=== PATIENT | male | born 1965 | race Caucasian/White ===

== ENCOUNTER 2016-12-25 10:58 | Inpatient (IN) | payer SELFPAY ==
[~2016-12-25] VITALS: Ht 180.3 cm; Wt 100.0 kg
--- NOTE | ~2016-12-25 | HEMODYNAMI ---
PATIENT:RAUL CALDERON MEDICAL RECORD: [id number] : 67 LOCATION:[address] ADMISSION DATE: 12/25/16 Generatedon:01/01/201711:32 Patient name: RAUL CALDERON Patient #: [id number] SSN: : 1965 Date of study: 01/01/2017 Page: Of Hemodynamic Procedure Report Patient Data Patient Demographics Procedure consent was obtained First Name: RAUL Gender: Male Last Name: KVNG : 1965 [facility] Initial: C Age: 51 year(s) Patient #: [id number] Race: Unknown Additional ID: [id number] Contact details [address]: [address] [place] [address] State: [place] City: [place] Zip code: [address] Past Medical History Allergies: No known allergies Admission Admission Data Admission Date: 12/25/2016 Admission Time: 16:45 Room #: 2131 Weight (lbs.): 220 Weight (kg.): 99.79 Procedure Procedure Types Cath Procedure Peripheral Cath Diagnostic Procedure Cath Peripheral Liver TIPSS Procedure Description Procedure Date Procedure Date: 01/01/2017 Procedure Start Time: 10:16 Procedure Staff Name Function Manuel Pitts MD Performing Physician Mariusz Bhakta RT Scrub Gina Tracey RN Nurse Jewell Richardson RN Nurse Karen Aleman RT Fire Safety Director Karen Aleman RT Monitor Gagandeep Benjamin MD Additional personnel Procedure Data Cath Procedure Fluoroscopy Diagnostic fluoroscopy Total fluoroscopy Time: 9.8 time: 9.8 min min Diagnostic fluoroscopy Total fluoroscopy dose: dose: 1089 mGy 1089 mGy Contrast Material Contrast Material Type Amount (ml) Isovue 300 175 Diagnostic catheters Device Type Used For End Catheter Placement Merit UHF Pigtail VESSEL SIZING 5Fr 65CM catheter Procedure Medications Medication Administration Route Dosage unlisted medication 50 Hemodynamics Rest Heart Rate: 123 (bpm) Pressure Samples Time Site Value (mmHg) Purpose Heart Use Rate(bpm) 10:53 Portal (25) Snapshot 97 11:12 Portal 32/28(30) Snapshot 106 11:13 RA 14/13(13) Snapshot 99 11:22 Portal 32/31(30) Snapshot 101 Snapshots Pre Cath Intra NCS Post Cath Vital Signs Time Heart Resp NIBP Rhythm Pain Sedation Rate (ipm) (mmHg) Status Level (bpm) 9:50:29 131 17 No Cuff NSR 0 (11) , 10(A) No pain 9:54:28 106 No Cuff NSR 0 (11) , 10(A) No pain 9:58:28 103 3 No Cuff NSR 0 (11) , 10(A) No pain 10:02:28 93 11 No Cuff NSR 0 (11) , 10(A) No pain 10:06:27 107 32 No Cuff NSR 0 (11) , 10(A) No pain 10:10:27 90 28 No Cuff NSR 0 (11) , 10(A) No pain 10:14:27 83 28 No Cuff NSR 0 (11) , 10(A) No pain 10:18:26 86 23 No Cuff NSR 0 (11) , 10(A) No pain 10:22:26 87 27 No Cuff NSR 0 (11) , 10(A) No pain 10:26:26 92 26 No Cuff NSR 0 (11) , 10(A) No pain 10:30:25 82 26 No Cuff NSR 0 (11) , 10(A) No pain 10:34:25 90 27 No Cuff NSR 0 (11) , 10(A) No pain 10:38:24 85 26 No Cuff NSR 0 (11) , 10(A) No pain 10:42:24 96 34 No Cuff NSR 0 (11) , 10(A) No pain 10:46:24 117 22 No Cuff NSR 0 (11) , 10(A) No pain 10:50:23 102 31 No Cuff NSR 0 (11) , 10(A) No pain 10:54:23 92 31 No Cuff NSR 0 (11) , 10(A) No pain 10:58:23 95 29 No Cuff NSR 0 (11) , 10(A) No pain 11:02:22 101 16 No Cuff NSR 0 (11) , 10(A) No pain 11:06:22 95 30 No Cuff NSR 0 (11) , 10(A) No pain 11:10:22 101 28 No Cuff NSR 0 (11) , 10(A) No pain 11:14:21 106 29 No Cuff NSR 0 (11) , 10(A) No pain 11:18:21 97 29 No Cuff NSR 0 (11) , 10(A) No pain 11:22:21 130 33 No Cuff NSR 0 (11) , 10(A) No pain 11:26:20 108 27 No Cuff NSR 0 (11) , 10(A) No pain 11:30:20 110 23 No Cuff NSR 0 (11) , 10(A) No pain Medications Time Medication Route Dose Verified Delivered Reason Notes Effectiven ess by by 10:19:44 Albumin IVPB 50 GM Gina Gina Per King JAYSON Tracey RN physician Procedure Log Time Note 9:26:13 Patient Weight : 220 kg 9:48:46 Time tracking: Regular hours 9:49:19 Plan of Care:Hemodynamics will remain stable., Cardiac rhythm will remain stable., Comfort level will be maintained., Respiratory function will remain adequate., Patient/ family verbilizes understanding of procedure., Procedure tolerated without complication., Recovers from procedure without complications.. 9:49:28 Patient received from Outpatients to IR Alert and oriented. Tansferred to table in Supine position. 9:49:32 Warm blankets applied, and carolyn hugger turned on for patient comfort. 9:49:34 Correct patient and procedure confirmed by team. 9:49:35 Signed procedure consent form obtained from patient. 9:49:37 ECG and BP/O2 sat monitors applied to patient. 9:49:40 Vital chart was started 9:49:41 Baseline sample Acquired. 9:49:43 Full Disclosure recording started 9:49:44 - 9:50:12 H&P Date Dictated: 01/01/2017 Within 30 days and on chart.. 9:50:16 Family in waiting room. 9:50:19 Patient NPO since Midnight. 9:50:41 Patient allergic to No known allergies 9:50:46 Is the patient allergic to Iodine/contrast media? No. 9:51:16 Patient diabetic? No. 9:51:18 - 9:51:23 ----Pre-sedation anethsthesia assessment.---- 9:51:27 Previous problem with sedation/anesthesia? No ? 9:52:05 see anesthesia notes of monitoring of patient during procedure 9:52:19 - 9:52:25 Use device set IR Diagnostic 9:52:27 Sterile Angiographic Pack opened to sterile field. 9:52:28 Bag Decanter opened to sterile field. 9:52:30 Acist Manifold opened to sterile field. 9:52:32 Acist Hand Control opened to sterile field. 9:52:34 Acist Syringe opened to sterile field. 9:55:23 A MB[employer] F Pigtail VESSEL SIZING 5Fr 65CM catheter was advanced over the wire and used for . 9:55:24 KIT LIVER ACCESS BIOPSY W/19GX6 opened to sterile field. 9:55:25 PERCUTANEOUS ENTRY 19GA needle opened to sterile field. 9:55:28 ReelDx[employer] Inc. DOC .035 guide wire opened to sterile field. 9:55:29 Cook SCHROEDER 260 guide wire opened to sterile field. 9:55:30 Terumo ANGLE 260cm glide wire opened to sterile field. 9:55:32 BasixTOUCH Inflation Syringe opened to sterile field. 9:55:33 KIT, TRANSJUGULAR LIVER ACCESS R opened to sterile field. 9:55:35 [id number] 8FR CATH DRAIN TRAY opened to sterile field. 9:55:36 TUBING, CONTRAST INJCTN HI PRES opened to sterile field. 9:56:22 IV patent on arrival in left hand with 0.9% NaCl at KVO. 9:56:32 Right neck area was prepped with chlora-prep and draped in sterile fashion 9:56:36 Alarms reviewed by Zi Chan 9:56:37 Sharps counted by scrub and verified by Branden 9:56:38 - 9:57:41 Physical assessment completed. ASA score P 3 - A patient with severe systemic disease as per Gagandeep Benjamin MD. 9:57:48 Sedation plan: General Anesthesia General Anesthesia 9:57:50 See anesthesia assessment for all vs, medications and oxygen administered. 9:57:53 - 10:08:02 Micropuncture VSI 4FR kit opened to sterile field. 10:08:39 Physician arrived 10:13:36 Final Timeout: patient, procedure, and site verified with staff and physician. All members of the team are in agreement. 10:14:39 Procedure started. 10:15:21 Lidocaine 1% local to abdomin. ultrasound guided paracentesis in progress. 10:16:14 Local anesthetic to right IJ vein with Lidocaine 1% by Manuel Pitts MD.INITIAL ACCESS ONLY 10:16:27 Venous access obtained using ultrasound guidance. 10:19:44 Albumin 50 GM IVPB was administered by Gina Tracey RN; Per physician; 10:36:06 Terumo 5FR Band Saw Operator Cake Cutting H1 100CM glide catheter opened to sterile field. 10:36:07 [employer] BOLARUTODER .035 145 glide wire opened to sterile field. 10:42:47 Cook ANASON 145cm guide wire opened to sterile field. 10:46:02 [place] Sci AMPLATZ Super stiff 260cm guide wire opened to sterile field . 10:53:06 Zero performed for pressure channel P1 10:58:51 Inflation number: 1 A Cordis Powerflex Pro 8.0 x 40 x 80cm balloon was prepped and advanced across the Undefined1, then inflated to 10 HEATH for 0:10 (min:sec). 11:06:26 VIATORR 10x6 stent was deployed across Undefined1 . 11:11:26 Zero performed for pressure channel P1 11:11:33 Zero performed for pressure channel P1 11:11:44 Zero performed for pressure channel P1 11:11:52 Zero performed for pressure channel P1 11:13:17 Zero performed for pressure channel P1 11:18:38 Inflation number: 2 A Cordis Powerflex Pro 9.0 x 40 x 80cm balloon was prepped and advanced across the Undefined1, then inflated to 10 HEATH for 0:16 (min:sec). 11:20:53 Zero performed for pressure channel P1 11:21:14 Zero performed for pressure channel P1 11:21:22 Zero performed for pressure channel P1 11:22:55 Procedure ended.(Physican Out) 11:23:19 Fluoroscopy time 09.80 minutes. 11:23:27 Fluoroscopy dose: 1089 mGy 11:23:27 Flurop Dose total: 1089 11:24:06 Contrast amount:Isovue 300 175ml. 11:24:08 Sharps counted by scrub and verified by R.N. 11:24:12 Procedure and supply charges have been captured, reviewed, submitted an d are correct. 11:32:22 End room use (Document Last) 11:32:50 Vital chart was stopped Intervention Summary Intervention Notes Time ActionType Lesion and Equipment Action# Pressure Duration Attributes Used 10:58:51 Inflate Undefined1 Cordis 1 10 00:10 balloon Powerflex Pro 8.0 x 40 x 80cm balloon 11:06:26 Deploy self Undefined1 VIATORR 1 expanding 10x6 stent stent 11:18:38 Inflate Undefined1 Cordis 2 10 00:16 balloon Powerflex Pro 9.0 x 40 x 80cm balloon Device Usage Item Name Manufacture Quantity Catalog Hospital Part Current Mini mal Lot# / Number Charge Number Stock Stock Serial# Code Sterile Cardinal 1 [id number] 104246 5 Angiographic Health Pack Bag Decanter Microtek 1 2001S 110074 80222 131240 5 Medical Inc. Acist Manifold Acist 1 62558 634778 648784 829811 5 CO3 Ventures Systems Inc Acist Hand Acist 1 75058 249481 036621 995567 5 Control Medical Systems Inc Acist Syringe Acist 1 92153 848776 162832 415867 20 Medical Systems Inc Merit F Merit 1 [id number] 778497 285351 5 Pigtail VESSEL Medical SIZING 5Fr 65CM catheter KIT LIVER [facility] 1 L97481 535471 362180 5 ACCESS BIOPSY W/19GX6 PERCUTANEOUS [facility] 1 R26158 121051 136833 5 [id number] ENTRY 19GA needle Cook DOC .035 [facility] 1 I76891 889233 040145 5 5446561 guide wire Cook SCHROEDER 260 [facility] 1 S87641 742704 722050 5 9191765 guide wire Terumo ANGLE Terumo 1 PF3585 423163 072325 506247 5 260cm glide wire BasixTOUCH Merit 1 EW6050 194755 219748 988401 5 Inflation Medical Syringe KIT, [facility] 1 M09179 518716 570721 5 0624412 TRANSJUGULAR LIVER ACCESS R QQIW-U-WHARVNIZ CareFusion 1 [id number] 661854 780963 5 8FR CATH DRAIN TRAY TUBING, Merit 1 [id number] 910953 148208 791900 5 CONTRAST INJCTN Medical HI PRES Terumo 5FR [place] 1 CG513 070037 405361 5 Band Saw Operator Cake Cutting H1 Scientific 100CM glide catheter Stuart RO[facility]RUNNER [facility] 1 O72356 250005 933517 5 9772701 .035 145 glide wire Cook BENTSON [facility] 1 O16882 793336 479118 5 5934245 145cm guide wire [place] Sci [place] 1 [id number] 320516 15489 712554 5 AMPLATZ Super Scientific stiff 260cm guide wire Cordis Cardinal 1 [id number] 009265 392354 460338 5 Powerflex Pro Health 8.0 x 40 x 80cm balloon VIATORR 10x6 [facility] [place] 1 [id number] 636975 707384 809303 5 [id number] stent Micropuncture VSI VASCULAR 1 7266V 398370 111154 5 VSI 4FR kit SOLUTIONS Cordis Cardinal 1 [id number] 821983 082845 330014 5 Powerflex Pro Health 9.0 x 40 x 80cm balloon Signature Audit [place] Stage Time Signature Unsigned Intra-Procedure 01/01/2017 Karen Aleman 11:32:47 AM RT(R) Signatures Monitor : Karen Aleman RT Signature : Date : Time : [place] [id number] [place] [address]
[2016-12-25 11:53] LABS: ALBUMIN 2.2 g/dL (3.4-5.0); ALKALINE PHOSPHATASE 191 U/L (46-116); ALT (SGPT) 53 U/L (10-68); CALCIUM 8.2 mg/dL (8.5-10.1); CHLORIDE - SERUM 88 mmol/L (98-107); CREATININE - SERUM 0.6 mg/dL (0.6-1.3); GLUCOSE 106 mg/dL (74-106); POTASSIUM - SERUM 3.7 mmol/L (3.5-5.1); PROTEIN - SERUM 6.9 g/dL (6.4-8.2); UREA NITROGEN 4 mg/dL (7-18); eGFR NON AFRICAN AMERICAN > 90 mL/min (90-120)
[2016-12-25 11:54] LABS: CALC OSMOLALITY 240 mosm/kg (275-300); SODIUM 121 mmol/L (136-145)
[2016-12-25 11:58] LABS: BASOPHILS 0.4 % (0.0-2.0); EOSINOPHILS 0.4 % (0-7); HEMATOCRIT 42.6 % (42.0-54.0); HEMOGLOBIN 15.1 g/dL (13.5-17.5); IMMATURE GRANULOCYTES 0.4 % (0-5); LYMPHOCYTES 10.9 % (15-50); MCH 34.7 pg (26.0-34.0); MCHC 35.4 g/dL (31.0-37.0); MCV 97.9 fL (80.0-100.0); MEAN PLATELET VOLUME 11.3 fL (7.4-10.4); MONOCYTES 10.4 % (2-11); NEUTROPHILS 77.5 % (40-80); PLATELET COUNT 105 10x3/uL (130-400); RBC 4.35 10x6/uL (4.20-6.10); RDW 13.3 % (11.5-14.5); WBC 13.7 10x3/uL (4.8-10.8)
[2016-12-25 12:22] LABS: APTT 32.3 SECONDS (22.8-39.4); INR 1.19 (0.85-1.17)
--- NOTE | 2016-12-25 18:11 | NUR ---
received pt to room 2130 VIA W/C AAOX4 RESP SLIGHTLY SOB ADBOMEN NOTED WITH DISTENTION SCLERA OF EYES JAUNDICED IV OF BANANA BAG INFUSING TO LT HANE AT 125ML/HR SITE FREE OF REDNESS OR EDEMA DRSG INTACT PT C/O ABDOMINAL PAIN 6/10 ACHING WILL CONTINUE TO MONITOR
[2016-12-25 20:00] VITALS: BP 121/83
--- NOTE | 2016-12-25 20:05 | NUR ---
ALERT/ORIENTED. LEFT HAND WITH BANANA BAG AT 125ML/HR. ABDOMEN VERY DISTENDED/TIGHT WITH HYPO BOWEL SOUNDS. C/O UPPER ABDOMEN PAIN. STATES HE HAD SAME PAIN WHEN IN ER. SEE ASSESSMENT.
--- NOTE | 2016-12-25 20:23 | NUR ---
PAGE TO CARMEN HENRIQUEZ APN TO SEE IF PT CAN HAVE PAIN MEDICATION.
--- NOTE | 2016-12-25 20:34 | NUR ---
RETURN CALL FROM CARMEN. REVIEWED LABS AND GAVE ORDER FOR ULTRAM 25MG EVERY 6 HOURS NEEDED FOR ABDOMINAL PAIN.
[2016-12-26] VITALS (7 sets, daily range): BP systolic 106–157; BP diastolic 61–85; BMI 27.9
[2016-12-26 07:27] LABS: HEPATITIS C ANTIBODY <0.1 (0.0-0.9)
--- NOTE | 2016-12-26 10:14 | NUR ---
RATIONALE FOR SCD'S EXPLAINED. REFUSED SCD'S.
[2016-12-26 12:01] LABS: BASOPHILS 0.4 % (0.0-2.0); EOSINOPHILS 0.4 % (0-7); HEMATOCRIT 40.2 % (42.0-54.0); HEMOGLOBIN 14.3 g/dL (13.5-17.5); IMMATURE GRANULOCYTES 0.3 % (0-5); LYMPHOCYTES 11.1 % (15-50); MCH 34.7 pg (26.0-34.0); MCHC 35.6 g/dL (31.0-37.0); MCV 97.6 fL (80.0-100.0); MEAN PLATELET VOLUME 10.7 fL (7.4-10.4); MONOCYTES 10.7 % (2-11); NEUTROPHILS 77.1 % (40-80); PLATELET COUNT 87 10x3/uL (130-400); RBC 4.12 10x6/uL (4.20-6.10); RDW 13.8 % (11.5-14.5); WBC 10.3 10x3/uL (4.8-10.8)
[2016-12-26 12:22] LABS: ALBUMIN 2.1 g/dL (3.4-5.0); ALKALINE PHOSPHATASE 185 U/L (46-116); ALT (SGPT) 49 U/L (10-68); BILIRUBIN - TOTAL 3.31 mg/dL (0.2-1.3); CALC OSMOLALITY 253 mosm/kg (275-300); CALCIUM 8.1 mg/dL (8.5-10.1); CARBON DIOXIDE 25.1 mmol/L (21.0-32.0); CHLORIDE - SERUM 93 mmol/L (98-107); CREATININE - SERUM 0.8 mg/dL (0.6-1.3); GLUCOSE 130 mg/dL (74-106); INR 1.22 (0.85-1.17); POTASSIUM - SERUM 3.4 mmol/L (3.5-5.1); PROTEIN - SERUM 6.6 g/dL (6.4-8.2); PROTIME 15.3 SECONDS (11.6-15.0); SODIUM 127 mmol/L (136-145); UREA NITROGEN 4 mg/dL (7-18); eGFR NON AFRICAN AMERICAN > 90 mL/min (90-120)
[2016-12-26 13:07] LABS: PLATELET ESTIMATE DECREASED
--- NOTE | 2016-12-26 13:47 | NUR ---
CONSENTS SIGNED FOR PARENCENTESIS. PT LEAVING FLOOR NOW.
[2016-12-26 14:05] LABS: APPEARANCE HAZY (CLEAR); BILIRUBIN 2+ (NEGATIVE); COLOR ORANGE (YELLOW); KETONE MODERATE mg/dL (NEGATIVE); LEUKOCYTE ESTERASE 2+ (NEGATIVE); SPECIFIC GRAVITY 1.015 (1.005-1.020)
[2016-12-26 14:10] LABS: EPITHELIAL CELLS 0-5 /hpf (0-5); RED CELLS - URINE OCC /hpf (0-5)
[2016-12-26 14:11] LABS: BACTERIA MODERATE /hpf (NONE SEEN); MUCUS <1+ /lpf (NONE SEEN)
[2016-12-26 15:50] LABS: PROTEIN - BODY FLUID 0.9 G/DL
[2016-12-26 17:40] LABS: LYMPH - BF 9 %; MACROPHAGES BF 48 %; MESOTHELIALS BF 19 %; NEUT - BF 24 %
[2016-12-27] VITALS: BP 116/76
[2016-12-27 04:00] VITALS: BP 98/58
[2016-12-27 06:56] LABS: BASOPHILS 0.4 % (0.0-2.0); EOSINOPHILS 1.1 % (0-7); HEMATOCRIT 39.8 % (42.0-54.0); HEMOGLOBIN 13.7 g/dL (13.5-17.5); IMMATURE GRANULOCYTES 0.4 % (0-5); LYMPHOCYTES 13.4 % (15-50); MCH 34.1 pg (26.0-34.0); MCHC 34.4 g/dL (31.0-37.0); MEAN PLATELET VOLUME 11.3 fL (7.4-10.4); MONOCYTES 13.8 % (2-11); NEUTROPHILS 70.9 % (40-80); PLATELET COUNT 82 10x3/uL (130-400); RBC 4.02 10x6/uL (4.20-6.10); RDW 13.9 % (11.5-14.5); WBC 8.1 10x3/uL (4.8-10.8)
[2016-12-27 07:16] LABS: ALBUMIN 1.9 g/dL (3.4-5.0); ALKALINE PHOSPHATASE 171 U/L (46-116); ALT (SGPT) 51 U/L (10-68); CALC OSMOLALITY 254 mosm/kg (275-300); CALCIUM 7.9 mg/dL (8.5-10.1); CARBON DIOXIDE 27.4 mmol/L (21.0-32.0); CHLORIDE - SERUM 94 mmol/L (98-107); CREATININE - SERUM 0.6 mg/dL (0.6-1.3); GLUCOSE 115 mg/dL (74-106); POTASSIUM - SERUM 3.3 mmol/L (3.5-5.1); PROTEIN - SERUM 5.7 g/dL (6.4-8.2); SODIUM 128 mmol/L (136-145); UREA NITROGEN 5 mg/dL (7-18); eGFR NON AFRICAN AMERICAN > 90 mL/min (90-120)
--- NOTE | 2016-12-27 07:40 | NUR ---
PATIENT IS AWAKE AND ALERT, RESTING IN HIS BED WITH HEAD ELEVATED 30 DEGREES. WATCHING TV. IV ACCESS TO THE LEFT HAND REINFORCED. NO REDNESS OR SWELLING NOTED. HIS LEFT UPPER LOBE HAS SOME HIGH PITCHED EXPIRATORY WHEEZES. OTHER LUNG SOUNDS ARE CLEAR. HR RRR. ASCITIES AND ACTIVE BOWEL SOUNDS NOTED.
--- NOTE | 2016-12-27 08:17 | NUR ---
THOMPSON ON HIS CALL LIGHT. HE STATES TAHT HE PRESSED THE WRONG BUTTON BY MISTAKE. DENIES NEEDS.
--- NOTE | 2016-12-27 10:10 | NUR ---
PATIENT UP AROUND ROOM AD EBONI. TOOK MEDICATIONS FOR STUDENT NURSE AND HIS INSTRUCTER. NO NEEDS NOTED.
--- NOTE | 2016-12-27 11:27 | NUR ---
PATIENT IS RESTING IN HIS BED, NO NEEDS NOTED.
[2016-12-27 12:10] VITALS: Ht 180.3 cm; Wt 100.0 kg
[2016-12-27 12:29] VITALS: BP 113/77
[2016-12-27 16:40] VITALS: BP 107/77
--- NOTE | 2016-12-27 16:50 | NUR ---
PATIENT EDUCATED ABOUT THE EFFECTS OF LASIX AND REASONS FOR THE POTASSIUM SUPPLEMENT. 3+ EDEMA NOTED TO HIS BLE. HE STATES THAT THIS IS UNUSUAL FOR HIM. HE ALSO STATES THAT THE LACTULOSE HE TOOK AT LUNCH HAD NO EFFECT ON HIS BOWELS.
--- NOTE | 2016-12-27 16:55 | NUR ---
* Is the patient Alert and Oriented? Yes 0 * How many steps to enter\exit or inside your home? 0 0 * PCP None 0 * Pharmacy [facility] [address] * Preadmission Environment Home Alone 0 * ADLs Independent 0 * Additional services required to return to the preadmission environment? Yes 0 * Can the patient safely return to the preadmission environment? Yes 0 * Has this patient been hospitalized within the prior 30 days at any hospital? Yes 12/27/2016 17:00 DCP: Discharge Planning Patient Name: RAUL CALDERON Admission Status: ER Accout number: [id number] Admission Date: 12-25-2016 : 1965 Admission Diagnosis: Attending: LACEY Current LOS: 2 Anticipated DC Date: 12-28-2016 Planned Disposition: Home Primary Insurance: UNINSURED DISCOUNT PLAN Discharge Planning Comments: CM met with patient to assess dc plans/needs. Patient states he lives alone & is independent with all ADL's & IADL's. He does not use any assistive devices for mobility. At dc, he will return home. No needs identified or verbalized at this time. CM will follow. Steel Shot Header Operator: Mindy Garcia
--- NOTE | 2016-12-27 17:50 | NUR ---
PATIETN UP AD EBONI TO THE RESTROOM.
--- NOTE | 2016-12-27 19:45 | NUR ---
ASSESSMENT COMPLETED, NO ACUTE DISTRESS NOTED, FALL PRECATIONS IN PLACE, FAMILY IN ROOM, CL IN REACH, WILL MONITOR
[2016-12-27 20:00] VITALS: BP 108/81
--- NOTE | 2016-12-27 20:00 | NUR ---
MEDS GIVEN PER MAR, ENRIKE WELL, FAMILY IN ROOM, CL IN REACH
--- NOTE | 2016-12-27 22:13 | NUR ---
PRN MEDS GIVEN PER REQUEST, ENRIKE WELL, CL IN REACH
--- NOTE | 2016-12-27 23:05 | NUR ---
LYING BED AWAKE, DENIES NEEDS, CL IN REACH
--- NOTE | 2016-12-28 01:09 | NUR ---
UP TO RESTROOM WITH NO DISTRESS NOTED, DENIES NEEDS, CL IN REACH
--- NOTE | 2016-12-28 03:49 | NUR ---
NO CHANGES SINCE LAST ROUND, SAFETY MEASURES IN PLACE, CL IN REACH
[2016-12-28 04:00] VITALS: BP 112/80
[2016-12-28 05:44] LABS: INR 1.3 (0.85-1.17); PROTIME 16.1 SECONDS (11.6-15.0)
[2016-12-28 05:52] LABS: ALKALINE PHOSPHATASE 175 U/L (46-116); ALT (SGPT) 49 U/L (10-68); CALC OSMOLALITY 255 mosm/kg (275-300); CALCIUM 8.4 mg/dL (8.5-10.1); CARBON DIOXIDE 28.7 mmol/L (21.0-32.0); CHLORIDE - SERUM 94 mmol/L (98-107); CREATININE - SERUM 0.7 mg/dL (0.6-1.3); GLUCOSE 107 mg/dL (74-106); MAGNESIUM - SERUM 1.8 mg/dL (1.8-2.4); POTASSIUM - SERUM 3.1 mmol/L (3.5-5.1); PROTEIN - SERUM 6.3 g/dL (6.4-8.2); SODIUM 129 mmol/L (136-145); UREA NITROGEN 5 mg/dL (7-18); eGFR NON AFRICAN AMERICAN > 90 mL/min (90-120)
--- NOTE | 2016-12-28 07:25 | NUR ---
ASSESSMENT COMPLETED. AWAKE AND ALERT. IV TO LEFT HAND WITH NS AT 50. ABD DISTENDED. EDEMA TO LEGS. REFUSES Jazzy HOSE. WILL MONITOR
--- NOTE | 2016-12-28 08:08 | NUR ---
SITTING UP SOB EATING BRK. IV PATENT. CALL LIGHT IN REACH. WILL CONT. PLAN OF CARE.
[2016-12-28 09:36] VITALS: BP 124/83
[2016-12-28 12:11] VITALS: BP 112/74
--- NOTE | 2016-12-28 13:41 | NUR ---
UP TO BATHROOM. GAIT STEADY. . DNIES ANY NEEDS. CALL LIGHT IN REACH
[2016-12-28 18:08] VITALS: BP 119/84
--- NOTE | 2016-12-28 18:30 | NUR ---
AWAITING US OF ABD. NO NEEDS VOICED. OLEG LAGOS ON.WILL MONITOR
[2016-12-28 19:00] VITALS: BP 142/93
--- NOTE | 2016-12-28 19:25 | NUR ---
ASSESSEMENT DONE. ABD US COMPLETE. PT REQUEST SOMETHING TO EAT. A/O. NO DISTRESS NOTED. FAMILY IN ROOM. CALL LIGHT WITHIN REACH. WILL CONT. TO MONITOR.
[2016-12-29] VITALS: BP 113/89
--- NOTE | 2016-12-29 00:35 | NUR ---
PT SLEEPING. APPEARS COMFORTABLE. NO DISTRESS NOTED. CALL LIGHT WITH IN REACH. WILL CONT. TO MONITOR.
--- NOTE | 2016-12-29 03:47 | NUR ---
PT SLEEPING. EASILY AWAKEN. DENIES NEEDS. NO DISTRESS NOTED. CALL LIGHT WITH IN REACH. WILL CONT. TO MONITOR.
[2016-12-29 04:00] VITALS: BP 118/88
--- NOTE | 2016-12-29 05:10 | NUR ---
AGREE WITH GEOLOGICAL SAMPLE TESTER'S ASSESSMENT. CONTINUE PLAN OF CARE.
[2016-12-29 06:14] LABS: BASOPHILS 0.4 % (0.0-2.0); EOSINOPHILS 1.3 % (0-7); HEMOGLOBIN 14.7 g/dL (13.5-17.5); IMMATURE GRANULOCYTES 0.6 % (0-5); LYMPHOCYTES 16.6 % (15-50); MCH 34.8 pg (26.0-34.0); MCV 99.5 fL (80.0-100.0); MEAN PLATELET VOLUME 11.5 fL (7.4-10.4); MONOCYTES 16.8 % (2-11); NEUTROPHILS 64.3 % (40-80); PLATELET COUNT 93 10x3/uL (130-400); RBC 4.22 10x6/uL (4.20-6.10); RDW 14.4 % (11.5-14.5); WBC 9.1 10x3/uL (4.8-10.8)
--- NOTE | 2016-12-29 06:20 | NUR ---
PT SLEEPING. NO DISTRESS NOTED. APPEARS COMFORTABLE. CALL LIGHT WITH IN REACH. WILL CONT. TO MONITOR.
[2016-12-29 06:37] LABS: ALBUMIN 1.7 g/dL (3.4-5.0); ALKALINE PHOSPHATASE 156 U/L (46-116); ALT (SGPT) 43 U/L (10-68); CALC OSMOLALITY 253 mosm/kg (275-300); CALCIUM 8.2 mg/dL (8.5-10.1); CARBON DIOXIDE 25.7 mmol/L (21.0-32.0); CHLORIDE - SERUM 95 mmol/L (98-107); CREATININE - SERUM 0.6 mg/dL (0.6-1.3); GLUCOSE 99 mg/dL (74-106); PROTEIN - SERUM 5.8 g/dL (6.4-8.2); SODIUM 128 mmol/L (136-145); UREA NITROGEN 4 mg/dL (7-18); eGFR NON AFRICAN AMERICAN > 90 mL/min (90-120)
--- NOTE | 2016-12-29 07:10 | NUR ---
RECEIVED REPORT. ASSUMED CARE OF PATIENT. CALL LIGHT WITHIN REACH. DENIES NEEDS AT THIS TIME. ALERT/ORIENTED. RESP EVEN AND UNLAOBRED. NO DISTRESS.
[2016-12-29 08:26] VITALS: BP 131/83
[2016-12-29 12:30] VITALS: BP 113/77
--- NOTE | 2016-12-29 13:12 | NUR ---
POS GLUCOSE OF ANOTHER PATIENT UPLOADED TO THIS PATIENT CHART. THIS PATIENT DID NOT HAVE GLUCOSE OF 331! MD MADE AWARE AND MEDICATION ORDERS CHANGED APPROPRIATELY.
--- NOTE | 2016-12-29 13:24 | NUR ---
PATIENT MADE AWARE OF HIS FLUID RESTRICTION AND VERBALIZED HIS UNDERSTANDING. ALSO PROVIDED PATIENT WITH INFORMATION FOR PARACENTHESIS IN AM AND THAT HE WOULD BE NPO AFTER MIDNIGHT TONIGHT.
[2016-12-29 16:00] VITALS: BP 125/84
--- NOTE | 2016-12-29 18:15 | NUR ---
NEW ARM BAND PROVIDED OLD ARM BAND TOO TIGHT. CRUSHED ICE ALSO MADE AVAILABLE TO PATIENT AT THIS TIME. FAMILY AT BEDSIDE. CALL LIGHT WITHIN REACH. NO DISTRESS.
--- NOTE | 2016-12-29 19:50 | NUR ---
ASSESSMENT DONE. PT LAYING IN BED WATCHING TV. A/O. EDUCATED PT ON FLUID RESTRICTION. PT VERBALIZED UNDERSTANDING. PT REFUSING TO WEAR OLEG HOSE OR SCD'S AT THIS TIME. PT VERBALIZED UNDERSTANDING OF RISKS TO NOT WEARING OLEG HOSE OR SCD'S. PT DENIES NEEDS AT THIS TIME. CALL LIGHT WITH IN REACH. WILL CO NT. TO MONITOR. PT UNDERSTAND HE IS TO BE NPO AFTER MN FOR AM PROCEDURE.
[2016-12-29 20:19] VITALS: BP 120/84
--- NOTE | 2016-12-29 22:33 | NUR ---
PT UP AND AMBULATING TO RESTROOM. DENIES NEEDS.
[2016-12-30] VITALS (9 sets, daily range): BP systolic 104–128; BP diastolic 68–98
--- NOTE | 2016-12-30 02:28 | NUR ---
NURSE ENTERED ROOM AND FOUND PT STANDING AT HIS SINK WITH A CUP AND HE APPEARED TO BE DRINKING WATER FROM THE SINK. WHEN NURSE QUESTIONED PT ABOUT WHAT HE WAS DOING HE REPLIED " I'M NOT DRINKING IT. I AM JUST RINISING MY MOUTH OUT. I HAVE COTTON MOUTH SO BAD." NURSE REMINDED PT THAT HE IS TO BE NPO FOR PROCEDURE IN AM, AND ALSO HE IS ON A 1000 ML FLUID RESTRICTION. PT VERBALIZED UNDERSTANDING. PT DENIES NEEDS OR WANTS AT THIS TIME AND WENT BACK TO HIS BED TO LAY DOWN. WILL CONT. TO MONITOR.
--- NOTE | 2016-12-30 05:59 | NUR ---
PT LAYING IN BED WATCHING. TV. A/O. NO DISTRESS NOTED. DENIES NEEDS. CALL LIGHT WITH IN REACH.
[2016-12-30 06:06] LABS: INR 1.31 (0.85-1.17); PROTIME 16.2 SECONDS (11.6-15.0)
[2016-12-30 06:12] LABS: HEMOGLOBIN A1C 4.2 % (4.8-6.0)
--- NOTE | 2016-12-30 07:00 | NUR ---
RECEIVED REPORT. ASSUMED CARE OF PATIENT. RESTING WITH EYES CLOSED, EASILY AROUSED. RESP EVEN AND UNLABORED. IN REPORT, INFORMED PATIENT REFUSED TEDS, THIS AM ASKE PATIENT IF WE COULD REAPPLY OLEG AND HE STATED SURE, THAT THEY JUST PUT THEM BACK ON LAST NIGHT. ALSO RECEIVED REPORT THAT PATIENT WAS DRINKING FREE WATER FROM SINK. CALL LIGHT WITHIN REACH. DENIES NEEDS AT THIS TIME. NO DISTRESS.
--- NOTE | 2016-12-30 08:02 | NUR ---
CONSENTS SIGNED AND PLACED ON CHART FOR PARACENTESIS THIS AM.
--- NOTE | 2016-12-30 10:15 | NUR ---
PATIENT RETURN TO ROOM 213 FROM IR, PATIENT HAD PARACENTESIS. 5300 ML REMOVED. SITE TO RIGHT LOWER QUADRANT WITH DRESSING CLEAN, DRY AND INTACT. BEATRICE FROM IR REPORTS THAT SHE ATTEMPTED TO GIVE PATIENT VERSED AND FENTENYL AND WHILE ALBUMIN WAS INFUSING SHE NOTICED THAT HIS HAND AND ARM ARE SWELLING. SHE THINKS PATIENTS IV HAS BEEN INFILTRATED THE ENTIRE TIME. BEATRICE STATES THAT SHE IS BRINGING PATIENT BACK TO THE UNIT AND HE WILL NEED ANOTHER IV PLACED AND SHE IS BRINGING ALBUMIN BACK TO THE UNIT ALSO. SHE STATES SHE WOULD PUT IN A NEW IV AND ADMINISTER THE ALBUMIN BUT SHE HAS TO GO PLAY THE [place]AN[place] AT HER [facility]. THIS INSOLE BEVELER ELEVATED ARM ON PILLOW, DISCONTINUED THE IV SITE TO LEFT HAND. NO BLEEDING FROM SITE. CATHETER TIP INTACT. 2X2 GAUZE APPLIED AND SECURED WITH TAPE. WARM COMPRESSES APPLIED TO LEFT HAND AND ARM. PATIENT HAS NO COMPLAINTS AT THIS TIME. NO DISTRESS. PATIENT WITH FAMILY AT BEDSIDE.
--- NOTE | 2016-12-30 11:35 | NUR ---
THIS SAP ENTERPRISE PORTAL CONSULTANT ATTEMPTED X2 TO SITE IV TO RIGHT UPPER EXTREMITIY. THIS SAP ENTERPRISE PORTAL CONSULTANT UNSUCCESSFUL ON EACH ATTEMPT. NO BLEEDING FROM SITES. ABLE TO ACCESS VEIN, BUT VEIN BLOWS. HAVE NOTIFIED CHARGE NURSE AND AWAITING FOR ANOTHER ATTEMPT FROM TAILERCPAMANNY. CALL LIGHT WITHIN REACH. PATIENT STILL HAS NOT HAD HIS ALBUMIN ADMINISTERED DUE TO NO IV ACCESS.
--- NOTE | 2016-12-30 15:30 | NUR ---
RESTING WELL IN BED. NO DISTRESS. STILL AWAITING IV PLACEMENT AT THIS TIME.
--- NOTE | 2016-12-30 16:15 | NUR ---
22 GAUGE IV PLACED TO RIGHT UPPER ARM X 1 STICK BY JAYSON ROMERO. TAPED, DATED, AND SECURED. EASY FLUSH, GOOD BLOOD WITHDRAWL. TOLERATED IV PLACEMENT WELL. NO DISTRESS. FLUIDS INFUSING ORDERED AT THIS TIME.
--- NOTE | 2016-12-30 18:15 | NUR ---
RESTING IN BED WITH ATTENTION TOWARD TELEVISION. CALL LIGHT WITHIN REACH. NO DISTRESS.
--- NOTE | 2016-12-30 20:05 | NUR ---
RESUMED CARE OF PT, LYING IN BED RESPIRATIONS EVEN AND UNLABORED ON ROOM AIR. RIGHT UPPER ARM NS @ 50. PLAN OF CARE DISCUSSED. CALL LIGHT IN REACH. WILL CONTINUE TO MONITOR. SEE NURSE ASSESSMENT.
[2016-12-31] VITALS: BP 101/69
--- NOTE | 2016-12-31 03:14 | NUR ---
LYING IN BED WITH EYES CLOSED, RESPIRATIONS EVEN AND UNLABORED. CALL LIGHT IN REACH. WILL CONTINUE TO MONITOR.
[2016-12-31 04:00] VITALS: BP 139/83
[2016-12-31 05:19] LABS: BASOPHILS 0.3 % (0.0-2.0); EOSINOPHILS 1.2 % (0-7); HEMATOCRIT 42.1 % (42.0-54.0); HEMOGLOBIN 14.6 g/dL (13.5-17.5); IMMATURE GRANULOCYTES 0.6 % (0-5); MCH 34.4 pg (26.0-34.0); MCHC 34.7 g/dL (31.0-37.0); MCV 99.3 fL (80.0-100.0); MEAN PLATELET VOLUME 11.3 fL (7.4-10.4); MONOCYTES 15.8 % (2-11); NEUTROPHILS 66.1 % (40-80); PLATELET COUNT 94 10x3/uL (130-400); RBC 4.24 10x6/uL (4.20-6.10); RDW 14.5 % (11.5-14.5); WBC 9.8 10x3/uL (4.8-10.8)
[2016-12-31 06:31] LABS: ALBUMIN 1.9 g/dL (3.4-5.0); ALKALINE PHOSPHATASE 129 U/L (46-116); ALT (SGPT) 35 U/L (10-68); CALC OSMOLALITY 263 mosm/kg (275-300); CARBON DIOXIDE 27.1 mmol/L (21.0-32.0); CHLORIDE - SERUM 99 mmol/L (98-107); CREATININE - SERUM 0.7 mg/dL (0.6-1.3); GLUCOSE 101 mg/dL (74-106); POTASSIUM - SERUM 3.4 mmol/L (3.5-5.1); PROTEIN - SERUM 5.8 g/dL (6.4-8.2); SODIUM 133 mmol/L (136-145); UREA NITROGEN 7 mg/dL (7-18); eGFR NON AFRICAN AMERICAN > 90 mL/min (90-120)
--- NOTE | 2016-12-31 06:47 | NUR ---
NO CHANGES FROM PREVIOUS ASSESSMENT, AM MEDS PASSED. CALL LIGHT IN REACH.
[2016-12-31 07:41] VITALS: BP 108/75
--- NOTE | 2016-12-31 08:04 | NUR ---
ASSESSMENT COMPLETED. ALERT AND ORIENTED. RIGHT UPPER ARM IV WITH NS AT 50. EDMA TO LEGS. OLEG HOSE ON. PT IS UP AB EBONI. DENIES ANY NEEDS. CALL LIGHT IN REACH WITH SR UP. WILL MONITOR
--- NOTE | 2016-12-31 08:43 | NUR ---
RESTS WITH EYES CLOSED. IV PATENT. CALL LIGHT IN REACH. WILL CONT. PLAN OF CARE.
--- NOTE | 2016-12-31 12:02 | NUR ---
Patient Name: RAUL CALDERON Encounter No: [id number] : 1965 Primary Insurance: UNINSURED DISCOUNT PLAN Anticipated DC Date: 12-28-2016 Planned Disposition: Home DCP follow-up note: CM RECEIVED REQUEST TO MEET WITH PT AND HIS SISTER. CM MET WITH PT AND FAMILY REQESTED IN PT'S ROOM. PT REPORTS HE NEEDS TO FILE FOR MEDICAID AND DISABILITY, STATES THAT SOMEONE FROM THE HOSPITAL MET WITH HIM THIS WEEKEND BUT HE CANNOT REMEMBER ANYTHING ABOUT THE MEETING. CM EXPLAINED PROCESS FOR FILING DISABILITY AND REFERRED PT TO [employer]IAL [employer]URITY ADMINISTRATION. CM CALLED [facility], [phone], WHO WILL CALL PT SHORTLY AND IF NECESSARY, MEET WITH PT AGAIN REGARDING ASSISTANCE WITH FILING FOR MEDICAID APPLICATION. PT NOTIFIED. PT DENIED DISCHARGE NEEDS, PLANS TO DISCHARGE HOME, FAMILY TO TRANSPORT. KSENIA MOY, CASE MANAGEMENT
--- NOTE | 2016-12-31 13:10 | NUR ---
Nutrition Follow Up: Chart reviewed. Pt had paracentesis 12/30/16. Pt is eating 58% meal avg on a regular diet. Wt gain of 19# since admit - r/t fluid. +BM 12/31/16. Meds noted including Lasix, Lactulose, NS @ 50 ml/hr. Labs noted. Pt with fair po intake at this time. Rec continue current diet. RD following.
[2016-12-31 16:22] VITALS: BP 113/70
--- NOTE | 2016-12-31 18:09 | NUR ---
LYING QUIETLY. NO NEEDS VOICED. WILL GIORGI. NPO AFTER MN FOR PROCEDURE TOMORROW
[2016-12-31 21:17] VITALS: BP 113/66
--- NOTE | 2016-12-31 23:31 | NUR ---
1915)REC'D IN BED TALKING ON CELL PHONE. DENIES ANY DISCOMFORT ATPRESENT TIME. WILL CONTINUE TO MONITOR FOR ANY CHGES AND FOLLOW CURRENT PLAN OF CARE.REINFORCED NPO AT [place] FOR PROCEDURE IN AM VOICES UNDERSTANDING
[2017-01-01] VITALS (10 sets, daily range): BP systolic 104–121; BP diastolic 62–87
[2017-01-01 04:37] LABS: BASOPHILS 0.5 % (0.0-2.0); EOSINOPHILS 1.3 % (0-7); HEMATOCRIT 40.9 % (42.0-54.0); HEMOGLOBIN 14.1 g/dL (13.5-17.5); IMMATURE GRANULOCYTES 0.6 % (0-5); LYMPHOCYTES 18.3 % (15-50); MCHC 34.5 g/dL (31.0-37.0); MCV 98.6 fL (80.0-100.0); MEAN PLATELET VOLUME 11.4 fL (7.4-10.4); MONOCYTES 14.6 % (2-11); NEUTROPHILS 64.7 % (40-80); PLATELET COUNT 107 10x3/uL (130-400); RBC 4.15 10x6/uL (4.20-6.10); RDW 14.1 % (11.5-14.5); WBC 9.2 10x3/uL (4.8-10.8)
[2017-01-01 04:52] LABS: APTT 32.8 SECONDS (22.8-39.4); INR 1.33 (0.85-1.17); PROTIME 16.4 SECONDS (11.6-15.0)
[2017-01-01 05:15] LABS: ALBUMIN 1.8 g/dL (3.4-5.0); ALKALINE PHOSPHATASE 120 U/L (46-116); ALT (SGPT) 34 U/L (10-68); BILIRUBIN - TOTAL 2.92 mg/dL (0.2-1.3); CALC OSMOLALITY 262 mosm/kg (275-300); CALCIUM 7.8 mg/dL (8.5-10.1); CARBON DIOXIDE 28.8 mmol/L (21.0-32.0); CHLORIDE - SERUM 98 mmol/L (98-107); CREATININE - SERUM 0.8 mg/dL (0.6-1.3); GLUCOSE 102 mg/dL (74-106); POTASSIUM - SERUM 3.2 mmol/L (3.5-5.1); PROTEIN - SERUM 5.9 g/dL (6.4-8.2); SODIUM 132 mmol/L (136-145); UREA NITROGEN 6 mg/dL (7-18); eGFR NON AFRICAN AMERICAN > 90 mL/min (90-120)
--- NOTE | 2017-01-01 07:05 | NUR ---
RECEIVED REPORT. ASSUMED CARE OF PATIENT. CALL LIGHT WITHIN REACH. PATIENT SITTING TO SIDE OF BED. ALERT/ORIENTED. PATIENT WILL HAVE TIPS PROCEDURE THIS AM. NO DISTRESS. FLUIDS INFUSING ORDERED. STUDENT NURSE OBTAINING EKG AT THIS TIME.
--- NOTE | 2017-01-01 09:36 | NUR ---
REPORT TO THIS NURSE THAT PATIENT LEFT UNIT VIA BED ABOUT 0930 FOR SURGICAL PROCEDURE. NO DISTRESS UPON LEAVING UNIT.
--- NOTE | 2017-01-01 12:17 | NUR ---
RECEIVED REPORT FROM RECOVERY. PATIENT WILL BE BROUGHT BACK SOON. PATIENT IS ST, PULSE 119. RECEIVED 1MG DILAUDID FOR PAIN.
--- NOTE | 2017-01-01 12:28 | NUR ---
RECEIVED PATIENT TO ROOM 2131 AT THIS TIME. RESP EVEN AND UNLABORED. WITH EYES CLOSED BUT EASILY AROUSED. DRESSING TO RIGHT SIDE OF NECK AND RIGHT LOWER ABD, BOTH ARE CLEAN, DRY AND INTACT. POST OP VITALS CHARTED WITH PACU NURSE. NO DISTRESS. CALL LIGHT PLACED WITHIN REACH.
--- NOTE | 2017-01-01 13:30 | NUR ---
PATIENT RESTING WITH EYES CLOSED, EASILY AROUSED. FAMILY AT BEDSIDE. DRESSING TO RIGHT SIDE OF NECK NOTED TO HAVE SMALL BLOOD SPOT, OUTLINED WITH BLUE SHARPIE. DENIES PAIN. NO DISTRESS.
--- NOTE | 2017-01-01 17:00 | NUR ---
ASSISTED PATIENT TO SIDE OF BED FOR PM MEAL. PATIENT DENIES NEEDS. NO DISTRESS. O2 OFF AT THIS TIME, PATIENT SATS 96% ON ROOM AIR. PATIENT STATES HE FEELS FINE. DENIES DIZZYNESS.
--- NOTE | 2017-01-01 19:40 | NUR ---
PT LAYING IN BED WATCHING TV. A/O. DRESSING TO RIGHT NECK CLEAN DRY AND INTACT. NO S/S OF BLEEDING OR HEMATOMA. NO DISTRESS NOTED. PT DENIES PAIN OR SOB. FRIEND AT BEDSIDE. CALL LIGHT WITH IN REACH. WILL CONT. TO MONITOR.
[2017-01-02 06:33] LABS: BASOPHILS 0.4 % (0.0-2.0); EOSINOPHILS 0.7 % (0-7); HEMATOCRIT 40.1 % (42.0-54.0); IMMATURE GRANULOCYTES 0.4 % (0-5); LYMPHOCYTES 12.6 % (15-50); MCH 34.7 pg (26.0-34.0); MCHC 34.9 g/dL (31.0-37.0); MCV 99.5 fL (80.0-100.0); MEAN PLATELET VOLUME 11.2 fL (7.4-10.4); MONOCYTES 12.5 % (2-11); NEUTROPHILS 73.4 % (40-80); PLATELET COUNT 105 10x3/uL (130-400); RBC 4.03 10x6/uL (4.20-6.10); RDW 14.3 % (11.5-14.5); WBC 9.4 10x3/uL (4.8-10.8)
[2017-01-02 06:35] LABS: ALBUMIN 2.2 g/dL (3.4-5.0); ALKALINE PHOSPHATASE 143 U/L (46-116); ALT (SGPT) 37 U/L (10-68); BILIRUBIN - TOTAL 4.31 mg/dL (0.2-1.3); CALC OSMOLALITY 261 mosm/kg (275-300); CALCIUM 7.8 mg/dL (8.5-10.1); CARBON DIOXIDE 27.2 mmol/L (21.0-32.0); CHLORIDE - SERUM 99 mmol/L (98-107); CREATININE - SERUM 0.6 mg/dL (0.6-1.3); GLUCOSE 102 mg/dL (74-106); POTASSIUM - SERUM 3.6 mmol/L (3.5-5.1); PROTEIN - SERUM 5.8 g/dL (6.4-8.2); SODIUM 132 mmol/L (136-145); UREA NITROGEN 4 mg/dL (7-18); eGFR NON AFRICAN AMERICAN > 90 mL/min (90-120)
--- NOTE | 2017-01-02 07:50 | NUR ---
AM ROUNDING- RECEIVED REPORT FROM ELEVATED WORK PLATFORM OPERATOR NURSE MIAN. PT IS CURRENTLY LAYING IN BED ON BACK WITH EYES OPEN RESTING. ON MONITOR SHOWING ST, HR 102. ON EP, WILL CHECK AM LABS AND TX PER PROTOCOL. 22G IV SEEN TO RIGHT UPPER ARM WITH NS RUNNING AT 50CC. ON ROOM AIR. PER REPORT PT IS REFUSING SCDS/OLEG HOSE. CLEAN, DRY, AND INTACT DRESSING SEEN TO RIGHT NECK FROM PRIOR PROCEDURE PT HAD DONE YESTERDAY PER REPORT. ON 1000CC FLUID RESTRICTION. WILL CONTINUE TO MONITOR AND CONTINUE WITH PLAN OF CARE.
[2017-01-02 08:37] VITALS: BP 142/87
[2017-01-02 16:07] VITALS: BP 140/89
--- NOTE | 2017-01-02 17:46 | NUR ---
PT LAYING IN BED ON BACK WITH EYES OPEN RESTING VISITING WITH FAMILY MEMBERS. NO NEED AT CURRENT TIME. WILL CONTINUE TO MONITOR.
--- NOTE | 2017-01-02 20:15 | NUR ---
ASSESSMENT DONE. PT LAYING IN BED WATCHING TV. PT AWAKE AND ALERT. MIXED UP ABOUT TIME OF DAY. NURSE RE-ORIENTED. DRESSING TO RT NECK CLEAN DRY AND INTACT. NO S/S OF BLEEDING OR HEMATOMA. PT DENIES PAIN OR DISCOMFORT. CALL LIGHT WITH IN REACH. WILL CONT. TO MONITOR.
[2017-01-02 20:57] VITALS: BP 128/91
--- NOTE | 2017-01-02 22:23 | NUR ---
PT LAYING IN BED TALKING ON PHONE. DENIES NEEDS. NO DISTRESS NOTED. CALL LIGHT WITH INREACH. WILL CONT. TO MONITOR.
[2017-01-02 23:00] VITALS: BP 117/88
--- NOTE | 2017-01-03 00:53 | NUR ---
PT SLEEPING. APPEARS COMFORTABLE. EYES CLOSED, RESP EVEN AND UNLABORED. CALL LIGHT WITH IN REACH. WILL CONT. TO MONITOR.
--- NOTE | 2017-01-03 02:51 | NUR ---
PT SLEEPING. EYES CLOSED, RESP EVEN AND UNLABORED. APPEARS COMFORTABLE. CALL LIGHT WITH IN REACH. WILL CONT. TO MONITOR.
--- NOTE | 2017-01-03 04:46 | NUR ---
PT SLEEPING. APPEARS COMFORTABLE. RESP EVEN AND UNLABORED. CALL LIGHT WITH IN REACH. WILL CONT. TO MONITOR.
[2017-01-03 05:47] VITALS: BP 97/65
[2017-01-03 05:48] LABS: BASOPHILS 0.6 % (0.0-2.0); EOSINOPHILS 0.7 % (0-7); HEMATOCRIT 40.5 % (42.0-54.0); HEMOGLOBIN 14.3 g/dL (13.5-17.5); IMMATURE GRANULOCYTES 0.6 % (0-5); LYMPHOCYTES 15.3 % (15-50); MCH 34.4 pg (26.0-34.0); MCHC 35.3 g/dL (31.0-37.0); MEAN PLATELET VOLUME 10.8 fL (7.4-10.4); MONOCYTES 14.4 % (2-11); NEUTROPHILS 68.4 % (40-80); PLATELET COUNT 102 10x3/uL (130-400); RBC 4.16 10x6/uL (4.20-6.10); RDW 14.2 % (11.5-14.5); WBC 9.7 10x3/uL (4.8-10.8)
[2017-01-03 05:57] LABS: MCV 97.4 fL (80.0-100.0)
[2017-01-03 06:25] LABS: ALKALINE PHOSPHATASE 151 U/L (46-116); ALT (SGPT) 39 U/L (10-68); CALC OSMOLALITY 261 mosm/kg (275-300); CALCIUM 7.8 mg/dL (8.5-10.1); CARBON DIOXIDE 23.4 mmol/L (21.0-32.0); CHLORIDE - SERUM 100 mmol/L (98-107); CREATININE - SERUM 0.6 mg/dL (0.6-1.3); GLUCOSE 91 mg/dL (74-106); POTASSIUM - SERUM 3.7 mmol/L (3.5-5.1); PROTEIN - SERUM 5.7 g/dL (6.4-8.2); SODIUM 132 mmol/L (136-145); UREA NITROGEN 5 mg/dL (7-18); eGFR NON AFRICAN AMERICAN > 90 mL/min (90-120)
--- NOTE | 2017-01-03 07:29 | NUR ---
AM ROUNDING- RECEIVED REPORT FROM WET PRIMER POWDER BLENDER NURSE MIAN. PT IS CURRENTLY LAYING IN BED ON RIGHT SIDE WITH EYES CLOSED RESTING. ON MONITOR SHOWING ST, HR 106. IV SEEN TO RIGHT UPPER ARM WITH NS RUNNING AT 50CC/HR. ON ROOM AIR. PTS AMMONIA LEVEL IS 54 THIS AM. WILL AWAIT CARMEN HENRIQUEZ NP TO ARRIVE TO UNIT AND INFORM HER OF THIS. WILL CONTINUE TO MONITOR AND CONTINUE WITH PLAN OF CARE.
--- NOTE | 2017-01-03 07:50 | NUR ---
PAGED CARMEN HENRIQUEZ NP TO INFORM HER OF PTS AMMONIA LEVEL (54). RECEIVED CALLBACK FROM CARMEN HENRIQUEZ NP AND INFORMED HER OF PTS CRITICAL LAB. CARMEN STATES TO INFORM DR. BORRERO OF THIS TODAY. WILL DO ORDERED AND CONTINUE TO MONITOR.
[2017-01-03 08:03] VITALS: BP 98/65
[2017-01-03 12:10] VITALS: BP 93/63
--- NOTE | 2017-01-03 13:40 | NUR ---
Nutrition Consult/Follow Up: Attempted to speak with pt and spouse regarding low Na diet. Pt requested that written information be left in room and he would read over it himself. RD left written edu material in room and encouraged pt to contact RD with any questions. Pt is eating 71% meal avg on a YULISSA diet. Wt loss 15# since admit - r/t fluid loss. +BM 01/03/17. Labs noted - Na continues low. Meds noted including NS @ 50 ml/hr, Lasix, Lactulose. Pt with fair po intake at this time. Rec continue current diet. Thank you for the consult. RD following.
[2017-01-03] MEDS ORDERED: CHRONULAC30 ML PO (14:23)
[2017-01-03] MEDS ORDERED: K-DUR20 MEQ PO (14:23)
[2017-01-03] MEDS ORDERED: ALDACTONE100 MG PO (14:23)
[2017-01-03] MEDS ORDERED: LASIX40 MG PO (14:23)
--- NOTE | 2017-01-03 15:15 | NUR ---
D/C INSTRUCTIONS EXPLAINED TO PT. D/C PAPERWORK SIGNED BY PT AND PLACED IN CHART. IV REMOVED WITH CATH TIP INTACT, TOLERATED WELL. COVERED SITE WITH 2X2 GAUZE AND SECURED WITH TAPE. VOLUNTEER IS HERE TO GET PT VIA WHEELCHAIR TO TAKE HIM DOWN TO RIDE.
--- NOTE | 2017-01-04 10:19 | CN ---
PATIENT NAME:RAUL SHIRLEY MEDICAL RECORD: [id number] : 67 LOCATION:D. D.2131 ADMIT DATE: 12/25/16 ACCOUNT: [id number] CONSULTING PHYSICIAN: HUBER HAMMOND MD REFERRING PHYSICIAN: DAVID HURST MD DATE OF CONSULTATION: 01/01/2017 Cardiology Consultation DIAGNOSES: 1. Sinus tachycardia. 2. Alcohol abuse. 3. Ascites. 4. Alcoholic liver disease. HISTORY OF PRESENT ILLNESS: Mr. Shirley presents with ascites and alcoholic liver disease, underwent a TIPS procedure. He has been having episodes of tachycardia. This is only sinus tachycardia. He has had no dysrhythmias. PHYSICAL EXAMINATION: GENERAL APPEARANCE: Well-nourished, well-developed, appears stated age. Level of distress, comfortable. PSYCHIATRIC: Mental status, alert, normal affect. Orientation, oriented to time, place and person. EYES: Lids and conjunctiva, noninjected. No discharge, no pallor. ENT: Lips, teeth, gums, normal dentition. Oropharynx, no cyanosis, no pallor. NECK: Carotid arteries, bilateral normal upstroke, no bruits, no thrills. JUGULAR VEINS: No jugular venous pressure or distention. CERVICAL LYMPH NODES: Nontender, nonenlarged. THYROID: Not enlarged. Nontender. No nodules. LUNGS: Respiratory effort, unlabored. CHEST: Normal curvature. No thoracic deformity. No chest wall tenderness. Percussion, resonant. Auscultation, clear. No wheezes, no rales, no rhonchi. CARDIOVASCULAR: Precordial exam, nondisplaced. No heaves or pericardial thrills. Rate and rhythm, regular. Heart sounds, normal S1, normal S2. No S3, no gallop, no rub. Systolic murmur, not heard. Diastolic murmur, not heard. EXTREMITIES: No cyanosis, no edema. Peripheral pulses, full and equal in all extremities, except as noted. No bruits appreciated. ABDOMEN: Soft, nondistended. Normal aorta. No bruit. Nontender. No masses. Liver, nontender, no hepatomegaly. Spleen, nontender, no splenomegaly. MUSCULOSKELETAL: No joint tenderness. No joint swelling. No erythema. NEUROLOGICAL: Normal gait, normal strength, normal tone. SKIN: Warm and dry. REVIEW OF SYSTEMS: The patient reports easy bruising but reports no swollen glands. The patient reports no fever, no night sweats, no significant weight gain, no significant weight loss. No significant exercise tolerance. The patient reports no dry eyes, no irritation, no vision change. Patient reports no difficulty hearing and no ear pain. Patient reports no frequent nose bleeds or nose and sinus problems. Patient reports on arm pain on exertion. No shortness of breath while lying down. No history of heart murmur. Patient reports no cough, no wheezing or coughing up blood. Patient reports no abdominal pain, no vomiting. Normal appetite. No diarrhea and not vomiting blood. No nausea and no constipation. Patient reports no incontinence. No difficulty urinating. No hematuria. No increased frequency. Patient reports CONSULT REPORT [id number] RAUL SHIRLEY no muscle aches. No weakness, no arthralgias, no back pain. No swelling of the extremities. Patient reports no abnormal mole, no jaundice, no rashes. Reports no loss of consciousness. No weakness and no numbness. No seizures, dizziness, or headaches. The patient reports no depression, no sleep disturbance, feeling safe in a relationship and no alcohol abuse. Patient reports on fatigue. Reports no runny nose or sinus pressure. No itching, no hives, and no frequent sneezing. OVERALL IMPRESSION: Sinus tachycardia, physiological response to the liver disease, ascites and alcoholic cirrhosis. No other treatment or workup is necessary at this time. TRANSINT:[id number] Voice Confirmation ID: [id number] DOCUMENT ID: [id number] HUBER HAMMOND MD at 1019 CC: [id number] DICTATION DATE: 01/01/17 1240 SAWYER CORK SLABS: 01/01/17 1835 DIS IN 01/03/17 [facility] [address] [place] [address]
== END 2017-01-03 15:18 | disposition home or self-care (01) | DRG 406 ==
LOC: D.ER 10:58 → D.M2 16:45
PROVIDERS: Emergency Medicine; General Practice; Internal Medicine Gastroenterology; Physician Assistant; ADMIT Family Medicine
PROC: 0W9G3ZZ Drainage of Peritoneal Cavity, Percutaneous Approach (ICD-10-PCS; principal; 2016-12-26)
PROC: 0W9G3ZZ Drainage of Peritoneal Cavity, Percutaneous Approach (ICD-10-PCS; 2016-12-30)
PROC: 06183DY (ICD-10-PCS; 2017-01-01)
DX: K70.31 Alcoholic cirrhosis of liver with ascites (principal); E87.1 Hypo-osmolality and hyponatremia; F10.20 Alcohol dependence, uncomplicated; R74.8 Abnormal levels of other serum enzymes; Z72.0 Tobacco use; R00.0 Tachycardia, unspecified

== ENCOUNTER → 2017-01-15 08:01 | Outpatient (CLI) | payer SELFPAY ==
[2016-12-27 12:10] VITALS: BMI 31.9
[~2017-01-15 08:01] MED LIST: ALDACTONE100 MG PO; CHRONULAC30 ML PO; K-DUR20 MEQ PO; LASIX40 MG PO
== END | disposition home or self-care (01) ==
LOC: D.US 08:01
DX: K74.60 Unspecified cirrhosis of liver (principal); R18.8 Other ascites

== ENCOUNTER → 2017-04-18 10:06 | Outpatient (CLI) | payer BC ==
[2016-12-27 12:10] VITALS: BMI 31.9
[2017-04-18 11:13] LABS: CALC OSMOLALITY 268 mosm/kg (275-300); CARBON DIOXIDE 26.6 mmol/L (21.0-32.0); CHLORIDE - SERUM 101 mmol/L (98-107); CREATININE - SERUM 0.8 mg/dL (0.6-1.3); GLUCOSE 98 mg/dL (74-106); POTASSIUM - SERUM 4.4 mmol/L (3.5-5.1); SODIUM 135 mmol/L (136-145); UREA NITROGEN 9 mg/dL (7-18); eGFR NON AFRICAN AMERICAN > 90 mL/min (90-120)
== END | disposition home or self-care (01) ==
LOC: D.US 10:06
PROVIDERS: Specialist
DX: K74.60 Unspecified cirrhosis of liver (principal)

== ENCOUNTER → 2017-08-12 09:27 | Outpatient (CLI) | payer MEDICAID ==
[2016-12-27 12:10] VITALS: BMI 31.9
== END | disposition home or self-care (01) ==
LOC: D.US 08-05 13:00 → D.LAB 08-05 14:00 → D.US 09:27
DX: K74.60 Unspecified cirrhosis of liver (principal)

== ENCOUNTER 2017-08-18 11:17 | Emergency (ER) | payer MEDICAID ==
[2016-12-27 12:10] VITALS: BMI 31.9
== END 2017-08-18 12:08 | disposition home or self-care (01) ==
LOC: D.ER 11:17
DX: K42.9 Umbilical hernia without obstruction or gangrene (principal); F10.10 Alcohol abuse, uncomplicated; F17.200 Nicotine dependence, unspecified, uncomplicated

== ENCOUNTER → 2017-09-05 06:25 | Outpatient (CLI) | payer MEDICAID ==
[~2017-09-05] VITALS: Ht 180.3 cm; Wt 87.7 kg
--- NOTE | ~2017-09-05 | HEMODYNAMI ---
PATIENT:RAUL CALDERON MEDICAL RECORD: [id number] : 67 LOCATION:STACY ADMISSION DATE: 09/05/17 Generatedon:09/05/201710:52 Patient name: RAUL CALDERON Patient #: [id number] SSN: : 1965 Date of study: 09/05/2017 Page: Of Hemodynamic Procedure Report Patient Data Patient Demographics Procedure consent was obtained First Name: RAUL Gender: Male Last Name: KNVG : 1965 Middle Initial: DAVID Age: 52 year(s) Patient #: [id number] Race: Unknown Additional ID: [id number] Contact details Address: [address] [place] [address] State: [place] City: [place] Zip code: [address] Past Medical History Allergies: No known allergies Admission Admission Data Admission Date: 09/05/2017 Admission Time: 6:25 Procedure Procedure Types Cath Procedure Peripheral Cath Diagnostic Procedure Cath Peripheral Liver TIPSS Revision Procedure Description Procedure Date Procedure Date: 09/05/2017 Procedure Start Time: 9:38 Procedure Staff Name Function Manuel Pitts MD Performing Physician Karen Aleman RT Monitor Karen Aleman RT Candy Bar Attendant Emmy Espinoza RN Nurse Mariusz Bhakta RT Scrub Edvin Arevalo Jr, CRNA Additional personnel Procedure Data Cath Procedure Fluoroscopy Diagnostic fluoroscopy Total fluoroscopy Time: time: 28.2 min 28.2 min Diagnostic fluoroscopy Total fluoroscopy dose: dose: 1839 mGy 1839 mGy Contrast Material Contrast Material Type Amount (ml) Isovue 300 170 Diagnostic catheters Device Type Used For End Catheter Placement Cook PIGTAIL CALIBRATED 5FR 100CM catheter ([id number]) Procedure Medications Medication Administration Route Dosage Lidocaine 1% added to field 20 Oxygen 10 l/min Heparin Flush Bag added to field 3 bags (1000units/500ml NS) Hemodynamics Rest Heart Rate: 68 (bpm) Snapshots Pre Cath Intra NCS Post Cath Vital Signs Time Heart Resp SPO2 etCO2 NIBP (mmHg) Rhythm Pain Sedation Rate (ipm) (%) (mmHg) Status Level (bpm) 9:11:35 67 19 99 30.7 107/59(77) NSR 0 (11) 10(A) , No pain 9:15:45 65 15 99 29.2 97/63(82) NSR 0 (11) 10(A) , No pain 9:19:51 65 27 99 30.7 104/64(85) NSR 0 (11) 10(A) , No pain 9:23:58 66 14 99 29.2 101/65(77) NSR 0 (11) 10(A) , No pain 9:28:04 66 14 99 32.2 106/67(82) NSR 0 (11) 10(A) , No pain 9:32:12 66 14 99 28.4 115/70(88) NSR 0 (11) 10(A) , No pain 9:36:18 63 12 99 29.2 107/72(82) NSR 0 (11) 10(A) , No pain 9:40:25 77 29 98 32.9 110/74(96) NSR 0 (11) 10(A) , No pain 9:44:27 72 18 94 28.4 104/63(75) NSR 0 (11) 10(A) , No pain 9:48:37 71 16 94 26.9 95/62(73) NSR 0 (11) 10(A) , No pain 9:52:43 70 16 94 26.9 104/60(78) NSR 0 (11) 10(A) , No pain 9:56:49 71 18 95 27.7 111/72(88) NSR 0 (11) 10(A) , No pain 10:00:55 74 18 95 26.2 115/77(89) NSR 0 (11) 10(A) , No pain 10:05:04 74 18 95 29.2 114/70(86) NSR 0 (11) 10(A) , No pain 10:09:12 72 17 95 29.2 111/70(83) NSR 0 (11) 10(A) , No pain 10:13:20 72 17 95 30.7 109/72(88) NSR 0 (11) 10(A) , No pain 10:17:26 73 17 95 26.9 113/74(86) NSR 0 (11) 10(A) , No pain 10:21:32 74 18 95 28.4 120/79(93) NSR 0 (11) 10(A) , No pain 10:25:40 76 18 95 27.7 117/78(92) NSR 0 (11) 10(A) , No pain 10:29:43 80 18 95 26.9 119/81(104) NSR 0 (11) 10(A) , No pain 10:33:51 78 18 95 26.9 118/79(104) NSR 0 (11) 10(A) , No pain 10:38:30 82 24 96 13.4 128/92(110) NSR 0 (11) 10(A) , No pain 10:42:41 88 23 96 23.2 121/83(96) NSR 0 (11) 10(A) , No pain 10:46:47 85 13 11.9 135/90(109) NSR 0 (11) 10(A) , No pain 10:50:53 82 24 20.9 128/87(105) NSR 0 (11) 10(A) , No pain Medications Time Medication Route Dose Verified Delivered Reason Notes Effec tiveness by by 9:29:20 Lidocaine 1% added 20ml Emmy Manuel for local to vial Alexis Pitts anesthetic field RN 9:29:22 Heparin Flush added 3 Emmy Manuel used for Bag to bags Alexis Pitts procedure (1000units/500ml field RN NS) 9:29:56 Oxygen mask 10 Emmy Emmy used for l/min Alexis Alexis head animal keeper cytologist Log Time Note 8:46:50 Time tracking: Regular hours 8:47:34 Use device set IR Diagnostic 8:47:35 Sterile Angiographic Pack opened to sterile field. 8:47:36 Bag Decanter () opened to sterile field. 8:47:37 ACIST Manifold (18128) opened to sterile field. 8:47:38 ACIST Hand Control (59350) opened to sterile field. 8:47:39 ACIST Syringe (20076) opened to sterile field. 8:48:45 TUBING Contrast Injection High Pressure (XJA422Y) opened to sterile field. 8:48:46 TUBING Contrast Injection High Pressure (IEW725K) opened to sterile field. 8:48:47 SHEATH 5FR [place] (WCW624) opened to sterile field. 8:48:48 Gino SCHROEDER 180 guide wire opened to sterile field. 8:48:48 PERCUTANEOUS ENTRY 19GA needle opened to sterile field. 8:48:49 KIT, TRANSJUGULAR LIVER ACCESS R opened to sterile field. 8:48:50 Gino SCHROEDER 260 guide wire opened to sterile field. 8:48:59 - 8:49:09 Patient received from Outpatients to IR Alert and oriented. Tansferred to table in Supine position. 8:49:13 Correct patient and procedure confirmed by team. 8:49:15 Signed procedure consent form obtained from patient. 8:49:21 H&P Date Dictated: 09/05/2017 Within 30 days and on chart.. 8:49:24 Pre-procedure instructions explained to patient. 8:49:26 Pre-op teaching completed and patient verbalized understanding. 8:49:28 Family in waiting room. 8:49:32 Patient NPO since Midnight. 8:49:41 Patient allergic to No known allergies 8:49:46 Is the patient allergic to Iodine/contrast media? No. 8:49:55 - 8:50:41 see anesthesia notes for pre sedation information and monitoring of patient during procedure 8:50:44 - 8:50:58 - 8:52:00 IV patent on arrival in left wrist with 0.9% NaCl at KVO. 8:52:12 Right neck area was prepped with chlora-prep and draped in sterile fashion 8:52:16 - 9:10:24 ECG and BP/O2 sat monitors applied to patient. 9:10:25 Vital chart was started 9:10:26 Baseline sample Acquired. 9:10:27 Full Disclosure recording started 9:10:29 - 9:17:19 A Cook PIGTAIL CALIBRATED 5FR 100CM catheter ([id number]) was advanced over the wire and used for . 9:29:20 Lidocaine 1% 20ml vial added to field was administered by Manuel Pitts MD; for local anesthetic; 9:29:22 Heparin Flush Bag (1000units/500ml NS) 3 bags added to field was administered by Manuel Pitts MD; used for procedure; 9:29:56 Oxygen 10 l/min mask was administered by Emmy Espinoza RN; used for procedure; 9:35:07 Sedation plan: TIVA Medication:Propofol 9:35:12 Physician arrived 9:37:40 --------ALL STOP TIME OUT------ 9:37:41 Final Timeout: patient, procedure, and site verified with staff and physician. All members of the team are in agreement. 9:38:14 Procedure started. 9:38:35 Local anesthetic to right IJ vein with Lidocaine 1% by Manuel Pitts MD.INITIAL ACCESS ONLY 9:39:29 Venous access obtained using ultrasound guidance. 9:41:41 Terumo 5FR Breastfeeding Program Coordinator H1 100CM glide catheter opened to sterile field. 9:41:49 Terumo ANGLE 180L glide wire opened to sterile field. 9:42:03 TORQUE DEVICE PLASTIC .038 ( TD01) opened to sterile field. 9:45:42 Cook DOC .035 guide wire opened to sterile field. 10:32:20 Terumo 5FR Breastfeeding Program Coordinator H1 100CM glide catheter opened to sterile field. 10:39:00 Cook Bentson 260cm 0.035 guide wire opened to sterile field. 10:47:36 Procedure ended.(Physican Out) 10:48:47 Fluoroscopy time 28.20 minutes. 10:48:54 Fluoroscopy dose: 1839 mGy 10:48:54 Flurop Dose total: 1839 10:49:16 Contrast amount:Isovue 300 170ml. 10:49:19 Sharps counted by scrub and verified 10:49:35 Procedure and supply charges have been captured, reviewed, submitted an d are correct. 10:52:00 Report given to Outpatients. 10:52:26 Vital chart was stopped Device Usage Item Name Manufacture Quantity Catalog Hospital Part Current Minimal Lot# / Number Charge Number Stock Stock Serial# Code Sterile [place] 1 [id number] [id number] 5 Angiographic Health Pack Bag Decanter Microtek 1 [id number] 44262 589481 5 () Medical Inc. ACIST Acist 1 14806 763061 493185 163524 5 Manifold Medical (22834) Systems Inc ACIST Hand Acist 1 09296 287225 917154 408711 5 Control Medical (02562) Systems Inc ACIST Acist 1 23282 346104 639159 062262 20 Syringe Medical (78487) Systems Inc TUBING [place] 2 [id number] 271691 042366 074370 5 Contrast Medical Injection High Pressure (OUE446F) SHEATH 5FR Terumo 1 LZN469 360589 239327 746657 40 [place] (XZE513) Gino SCHROEDER Cook Medical 1 G20573 136101 857960 5 [id number] 180 guide wire PERCUTANEOUS [facility] 1 Q21614 259024 920609 5 6631056 ENTRY 19GA needle KIT, [facility] 1 D95981 106675 870328 5 [id number] TRANSJUGULAR LIVER ACCESS R Cook SCHROEDER [facility] 1 I86993 854149 075144 5 9557376 260 guide wire Cook PIGTAIL [facility] 1 D44662 675168 569715 545358 5 CALIBRATED 5FR 100CM catheter (V69784) Terumo 5FR [place] 2 CG513 539414 218531 5 Breastfeeding Program Coordinator Scientific H1 100CM glide catheter Terumo ANGLE Terumo 1 RL5079 447271 860403 756413 5 180L glide wire TORQUE [place] 1 TD01 572526 188932 080254 5 DEVICE Scientific PLASTIC .038 ( TD01) Cook DOC [facility] 1 Z78115 230655 038147 5 4114370 .035 guide wire Cook Grace [facility] 1 B16006 905486 245083 979306 4 9062914 260cm 0.035 guide wire Signature Audit [place] Stage Time Signature Unsigned Intra-Procedure 09/05/2017 Karen Aleman 10:52:22 AM RT(R) Signatures Monitor : Karen Aleman RT Signature : Date : Time : [address] [address]
[2017-09-05 06:59] LABS: EOSINOPHILS 2.6 % (0-7); HEMATOCRIT 47.9 % (42.0-54.0); IMMATURE GRANULOCYTES 0.3 % (0-5); LYMPHOCYTES 26.7 % (15-50); MCH 34.5 pg (26.0-34.0); MCHC 35.5 g/dL (31.0-37.0); MCV 97.2 fL (80.0-100.0); MEAN PLATELET VOLUME 10.4 fL (7.4-10.4); MONOCYTES 11.2 % (2-11); NEUTROPHILS 58.2 % (40-80); RBC 4.93 10x6/uL (4.20-6.10); RDW 14.2 % (11.5-14.5); WBC 6.3 10x3/uL (4.8-10.8)
[2017-09-05 07:03] LABS: PLATELET COUNT 123 10x3/uL (130-400)
[2017-09-05 07:12] LABS: CALC OSMOLALITY 264 mosm/kg (275-300); CALCIUM 9.3 mg/dL (8.5-10.1); CARBON DIOXIDE 25.4 mmol/L (21.0-32.0); CHLORIDE - SERUM 98 mmol/L (98-107); CREATININE - SERUM 0.8 mg/dL (0.6-1.3); GLUCOSE 93 mg/dL (74-106); INR 1.18 (0.85-1.17); POTASSIUM - SERUM 4.3 mmol/L (3.5-5.1); PROTIME 14.6 SECONDS (11.6-15.0); SODIUM 132 mmol/L (136-145); UREA NITROGEN 12 mg/dL (7-18); eGFR NON AFRICAN AMERICAN > 90 mL/min (90-120)
[2017-09-05 07:13] LABS: APTT 34.2 SECONDS (22.8-39.4)
[2017-09-05 07:53] VITALS: BP 116/75; Ht 180.3 cm; Wt 87.7 kg
--- NOTE | 2017-09-05 16:22 | NUR ---
VITALS CHARTED ON FREQUENT VITALS SHEET IN CHART PER MD ORDER.
--- NOTE | 2017-09-05 16:22 | NUR ---
1600 DISCHARGE INSTRUCTIONS NOW COMPLETE. PT HAD AMMONIA LEVEL DRAWN AND DR. CABRERA CAME TO SEE PT PRIOR TO DISCHARGE. DR. CABRERA INFORMED PT THAT HE WOULD FOLLOW UP IN 3 MON. NO OTHER SPECIAL INSTRUCTIONS GIVEN. PT ESCORTED OUT.
== END | disposition home or self-care (01) ==
LOC: D.SP 09-02 08:00 → D.OPS 06:25 → D.SP 09:00
PROVIDERS: Specialist
DX: T82.898A Other specified complication of vascular prosthetic devices, implants and grafts, initial encounter (principal); K74.60 Unspecified cirrhosis of liver; Z01.812 Encounter for preprocedural laboratory examination

== ENCOUNTER 2017-12-07 15:42 | Inpatient (IN) | payer MEDICAID ==
[~2017-12-07] VITALS: Ht 180.3 cm; Wt 87.3 kg
--- NOTE | ~2017-12-07 | HP ---
PATIENT: RAUL CALDERON MEDICAL RECORD: [id number] ACCOUNT: [id number] LOCATION:D. D.2103 : 67 ADMISSION DATE: 12/07/17 HISTORY AND PHYSICAL EXAMINATION DATE OF ADMISSION: 12/07/2017 CHIEF COMPLAINT: Pain. HISTORY OF PRESENT ILLNESS: I was asked to see the patient in the Emergency Room. I came emergently. The patient has a strangulated umbilical hernia. I was able to reduce the incarcerated contents. I personally reviewed the CT images. I have personally reviewed the CT report. It appears that it is only fatty tissue up in the hernia defect, likely omentum. The skin is erythematous and there is a portion of the umbilical skin which is gangrenous. Upon reduction of the hernia contents, some clear brownish fluid came out through the necrotic portion of the umbilical skin. The patient does not appear to have a bowel obstruction. Palpation aggravates. Nothing alleviates. The pain is described as severe. A complicating factor for this patient will be that he has ascites due to cirrhosis. I have told him that we cannot use mesh to fix the umbilical hernia and therefore there will be a significant risk that the hernia may recur. The mesh is contraindicated because of the necrotic nature of the wound as well as the fact that he has ascites which will impair wound healing. As I was able to reduce contents and they do not appear to involve small bowel, I think we can wait till the morning in order to perform the operation. I told him this would be a resection of the umbilicus, resection of the strangulated contents and then a suture repair of the hernia. The patient states that he has been trying to keep the hernia reduced and that he does this daily. This is the history and physical addendum. For the typed portion of the history and physical, please see the chart. This would include the past medical and surgical history, current medications, allergies, social history as well as family history. REVIEW OF SYSTEMS: No nausea, no vomiting. No fever, no chills. Positive for abdominal pain. No chest pain. No shortness of breath. PHYSICAL EXAMINATION: GENERAL: He does appear acutely ill and also appears chronically ill. VITAL SIGNS: Reviewed. The patient does smell of alcohol. EARS: External ears appear normal. EYES: Extraocular movements are intact. NECK: Trachea is midline. CHEST: No intercostal retractions. PULMONARY: Nonlabored, no stridor. ABDOMEN: Tenderness at the umbilicus. INTEGUMENT: Erythema as well as necrosis of the umbilicus. PSYCHIATRIC: Normal affect. NEUROLOGIC: There is some evidence of loss of higher cortical function. BACK: No thoracic kyphosis. LYMPHATIC: No lymphangitic streaking of the exposed extremities. IMPRESSION: Strangulated umbilical hernia. PLAN: Strangulated umbilical hernia repair without mesh tomorrow. IV HISTORY AND PHYSICAL [id number] RAUL CALDERON antibiotics. IV narcotic analgesia. TRANSINT:[id number] Voice Confirmation ID: [id number] DOCUMENT ID: [id number] CC: Xin Hurley APRN YANIV EVANS MD at 1042 CC: XIN FOSTER [id number] DICTATION DATE: 12/08/17 1125 DISTRIBUTION WAREHOUSE MANAGER: 12/08/17 1409 DIS IN 12/09/17 [facility] [address] [place] [address]
--- NOTE | ~2017-12-07 | OP ---
PATIENT NAME: RAUL CALDERON MEDICAL RECORD: [id number] :67 LOCATION:D.M2 D.2103 ADMISSION DATE:12/07/17 SURGEON: YANIV EVANS MD DATE OF OPERATION: 12/08/2017 PREOPERATIVE DIAGNOSIS: Strangulated umbilical hernia. POSTOPERATIVE DIAGNOSIS: Strangulated umbilical hernia. PROCEDURE: Strangulated umbilical hernia repair without mesh. SURGEON: Yaniv Evans MD CHEF HEAD: None. BLOOD LOSS: 100 cc. ANESTHESIA: General. COMPLICATIONS: None. The risks, possible complications and alternatives to procedure were explained to the patient. He elects to proceed. The discussion specifically included, but was not limited to, bleeding requiring emergency reoperation, infection, intestinal injury. OPERATIVE COURSE: The patient was conveyed to the operating room electively on 12/08/2017. General anesthesia was induced by the anesthesia staff. The abdomen was sterilely prepped and draped. Cultures were obtained. Through the use of double curvilinear incisions, I excised the skin and subcutaneous tissue around the umbilicus including the umbilical skin. I dissected down to the hernia defect. I was able to deliver some of the omentum out through the hernia defect. The omentum was clamped and divided distal to the clamps. I then ligated the omentum with 2-0 and 3-0 silks. I returned the omentum to the peritoneal cavity. There was some bleeding involving the preperitoneal fat, this was controlled with Bennett. I then sharply cleaned connective tissue from the underlying anterior wall fascia around the hernia defect. The hernia defect was closed with horizontal mattress 0 Surgidac. I then overran the hernia repair with a running #1 Vicryl. I irrigated with hydrogen peroxide. The deep adipose tissues were closed with interrupted 3-0 Vicryls. Subcutaneous adipose tissue was closed with interrupted 3-0 Vicryl. The skin was closed with multiple interrupted horizontal mattress 2-0 nylon. Sterile dressings were applied. The patient was then extubated and conveyed to post-anesthesia care unit where he was in stable condition. He will be continued on IV antibiotics as well as IV narcotic analgesia overnight and I will plan to dismiss him home tomorrow. TRANSINT:[id number] Voice Confirmation ID: [id number] DOCUMENT ID: [id number] CC: Xin Hurley APRN OPERATIVE REPORT [id number] RAUL CALDERON, YANIV LONG at 1042 CC: XIN FOSTER [id number] DICTATION DATE: 12/08/17 1128 TIMBER HEWER: 12/08/17 1620 DIS IN 12/09/17 [facility] [address] [facility]
--- NOTE | ~2017-12-07 | DS ---
PATIENT:RAUL CALDERON :67 MEDICAL RECORD: [id number] DISCHARGE SUMMARY ADMISSION DATE: 12/07/17 DISCHARGE DATE: 12/09/17 PRINCIPAL DIAGNOSIS: Strangulated umbilical hernia. PROCEDURE: Open strangulated umbilical hernia repair without mesh. OTHER DIAGNOSES: Include: 1. Decompensated liver failure. 2. Ascites. 3. Hyperammonemia. HOSPITAL COURSE: The patient was admitted through the Emergency Room. I was able to reduce the umbilical hernia there. He underwent operative repair. His diet was advanced. He is being dismissed home. He is being dismissed home with Dilaudid for pain and he is to continue on his home medicines including K-Dur, lactulose, Lasix, and Aldactone. I will see him in the office in 2-3 weeks. TRANSINT:[id number] Voice Confirmation ID: [id number] DOCUMENT ID: [id number] YANIV EVANS MD at 1042 CC: [id number] DICTATION DATE: 12/09/17 1337 MEDICATION MANAGER: 12/09/17 1411 DIS IN 12/09/17 [facility] [address] [place] [address]
[2017-12-07 16:46] LABS: BASOPHILS 0.3 % (0-2); EOSINOPHILS 1.3 % (0-7); HEMATOCRIT 41.5 % (42.0-54.0); HEMOGLOBIN 14.6 g/dL (13.5-17.5); IMMATURE GRANULOCYTES 0.3 % (0-5); LYMPHOCYTES 21.9 % (15-50); MCH 33.6 pg (26.0-34.0); MCHC 35.2 g/dL (31.0-37.0); MCV 95.4 fL (80.0-100.0); MEAN PLATELET VOLUME 10.5 fL (7.4-10.4); MONOCYTES 11.9 % (2-11); NEUTROPHILS 64.3 % (40-80); PLATELET COUNT 54 10x3/uL (130-400); RBC 4.35 10x6/uL (4.20-6.10); RDW 13.7 % (11.5-14.5); WBC 6.8 10x3/uL (4.8-10.8)
[2017-12-07 17:25] LABS: PLATELET ESTIMATE DECREASED
[2017-12-07 18:46] LABS: ALKALINE PHOSPHATASE 142 U/L (46-116); ALT (SGPT) 42 U/L (10-68); BILIRUBIN - TOTAL 1.81 mg/dL (0.2-1.3); CALC OSMOLALITY 259 mosm/kg (275-300); CALCIUM 8.6 mg/dL (8.5-10.1); CARBON DIOXIDE 25.4 mmol/L (21.0-32.0); CHLORIDE - SERUM 96 mmol/L (98-107); CREATININE - SERUM 0.6 mg/dL (0.6-1.3); GLUCOSE 94 mg/dL (74-106); POTASSIUM - SERUM 3.3 mmol/L (3.5-5.1); PROTEIN - SERUM 7.4 g/dL (6.4-8.2); SODIUM 131 mmol/L (136-145); UREA NITROGEN 4 mg/dL (7-18); eGFR NON AFRICAN AMERICAN > 90 mL/min (90-120)
[2017-12-07 20:28] LABS: APPEARANCE CLEAR (CLEAR); COLOR TAN (YELLOW); GLUCOSE NEGATIVE (NEGATIVE); KETONE NEGATIVE (NEGATIVE); NITRITE NEGATIVE (NEGATIVE); PROTEIN NEGATIVE (NEGATIVE)
[2017-12-07 20:29] LABS: BILIRUBIN NEGATIVE (NEGATIVE)
[2017-12-07 22:02] LABS: UDS - AMPHET NEGATIVE QUAL (NEGATIVE); UDS - BARB NEGATIVE QUAL (NEGATIVE); UDS - BENZO NEGATIVE QUAL (NEGATIVE); UDS - COCAINE NEGATIVE QUAL (NEGATIVE); UDS - OPIATE POSITIVE QUAL (NEGATIVE); UDS - PCP NEGATIVE QUAL (NEGATIVE); UDS - THC NEGATIVE QUAL (NEGATIVE)
[2017-12-08 07:09] LABS: BASOPHILS 0.3 % (0-2); EOSINOPHILS 0.6 % (0-7); HEMATOCRIT 39.6 % (42.0-54.0); HEMOGLOBIN 13.6 g/dL (13.5-17.5); IMMATURE GRANULOCYTES 0.2 % (0-5); LYMPHOCYTES 15.6 % (15-50); MCH 33.2 pg (26.0-34.0); MCHC 34.3 g/dL (31.0-37.0); MCV 96.6 fL (80.0-100.0); MONOCYTES 12.8 % (2-11); NEUTROPHILS 70.5 % (40-80); PLATELET COUNT 54 10x3/uL (130-400); RDW 13.9 % (11.5-14.5); WBC 6.4 10x3/uL (4.8-10.8)
[2017-12-08 07:29] LABS: ALBUMIN 2.9 g/dL (3.4-5.0); ALKALINE PHOSPHATASE 124 U/L (46-116); ALT (SGPT) 39 U/L (10-68); CALC OSMOLALITY 270 mosm/kg (275-300); CALCIUM 8.2 mg/dL (8.5-10.1); CARBON DIOXIDE 28.2 mmol/L (21.0-32.0); CHLORIDE - SERUM 101 mmol/L (98-107); CREATININE - SERUM 0.6 mg/dL (0.6-1.3); GLUCOSE 108 mg/dL (74-106); MAGNESIUM - SERUM 2.3 mg/dL (1.8-2.4); PHOSPHOROUS 3.4 mg/dL (2.5-4.9); POTASSIUM - SERUM 3.7 mmol/L (3.5-5.1); SODIUM 136 mmol/L (136-145); TROPONIN-I < 0.017 ng/mL (0.000-0.060); eGFR NON AFRICAN AMERICAN > 90 mL/min (90-120)
[2017-12-08 07:32] LABS: UREA NITROGEN 6 mg/dL (7-18)
[2017-12-08 14:10] VITALS: BP 141/86; Ht 180.3 cm; Wt 87.3 kg
[2017-12-08 16:18] VITALS: BP 124/69
[2017-12-08 20:43] VITALS: BP 113/72
[2017-12-09 02:27] VITALS: BP 114/75
[2017-12-09 09:19] VITALS: BP 120/77
[2017-12-09 11:39] VITALS: BP 132/75
[2017-12-09] MEDS ORDERED: DILAUDID2 MG PO (14:22)
[2017-12-10 07:30] LABS: HEPATITIS C ANTIBODY 0.1 (0.0-0.9)
== END 2017-12-09 15:26 | disposition home or self-care (01) | DRG 353 ==
LOC: D.ER 15:42 → D.EDHOLD 21:14 → OBSVTIME 21:32 → D.EDHOLD 21:33 → D.M2 21:33
PROVIDERS: Family Medicine; Physician Assistant Medical; Surgery
PROC: 0WQF0ZZ Repair Abdominal Wall, Open Approach (ICD-10-PCS; principal; 2017-12-08 10:00)
DX: K42.0 Umbilical hernia with obstruction, without gangrene (principal); K72.00 Acute and subacute hepatic failure without coma; R18.8 Other ascites; K74.60 Unspecified cirrhosis of liver

== ENCOUNTER 2017-12-11 02:38 | Inpatient (IN) | payer MEDICAID ==
[~2017-12-11] VITALS: Ht 180.3 cm; Wt 89.4 kg
[~2017-12-11 02:38] MED LIST changes: +DILAUDID2 MG PO
[2017-12-11 03:10] LABS: BASOPHILS 0 % (0-2); EOSINOPHILS 0 % (0-7); HEMATOCRIT 41.1 % (42.0-54.0); HEMOGLOBIN 14.3 g/dL (13.5-17.5); IMMATURE GRANULOCYTES 0.1 % (0-5); LYMPHOCYTES 5.7 % (15-50); MCH 33.3 pg (26.0-34.0); MCHC 34.8 g/dL (31.0-37.0); MCV 95.8 fL (80.0-100.0); MEAN PLATELET VOLUME 9.8 fL (7.4-10.4); MONOCYTES 14.7 % (2-11); NEUTROPHILS 79.5 % (40-80); RBC 4.29 10x6/uL (4.20-6.10); RDW 13.6 % (11.5-14.5); WBC 7.1 10x3/uL (4.8-10.8)
[2017-12-11 03:11] LABS: PLATELET COUNT 79 10x3/uL (130-400)
[2017-12-11 03:23] LABS: APTT 32.2 SECONDS (22.8-39.4); INR 1.15 (0.85-1.17); PROTIME 14.3 SECONDS (11.6-15.0)
[2017-12-11 03:28] LABS: ALKALINE PHOSPHATASE 134 U/L (46-116); ALT (SGPT) 33 U/L (10-68); AMYLASE - SERUM 18 U/L (25-115); BILIRUBIN - TOTAL 1.79 mg/dL (0.2-1.3); CALC OSMOLALITY 262 mosm/kg (275-300); CARBON DIOXIDE 26.2 mmol/L (21.0-32.0); CHLORIDE - SERUM 93 mmol/L (98-107); CREATININE - SERUM 0.6 mg/dL (0.6-1.3); GLUCOSE 129 mg/dL (74-106); LIPASE 75 U/L (73-393); MAGNESIUM - SERUM 1.8 mg/dL (1.8-2.4); POTASSIUM - SERUM 4.1 mmol/L (3.5-5.1); PROTEIN - SERUM 7.6 g/dL (6.4-8.2); SODIUM 131 mmol/L (136-145); UREA NITROGEN 6 mg/dL (7-18); eGFR NON AFRICAN AMERICAN > 90 mL/min (90-120)
[2017-12-11 13:59] VITALS: BP 117/76
[2017-12-11 16:23] VITALS: BP 104/64
[2017-12-11 20:00] VITALS: BP 102/56
[2017-12-12] VITALS (7 sets, daily range): BP systolic 90–129; BP diastolic 49–87; Ht 180.3 cm; Wt 89.4 kg
[2017-12-12 05:50] LABS: BASOPHILS 0.2 % (0-2); EOSINOPHILS 0.5 % (0-7); HEMATOCRIT 36.9 % (42.0-54.0); HEMOGLOBIN 12.3 g/dL (13.5-17.5); IMMATURE GRANULOCYTES 0.3 % (0-5); LYMPHOCYTES 10.4 % (15-50); MCHC 33.3 g/dL (31.0-37.0); MEAN PLATELET VOLUME 10.4 fL (7.4-10.4); NEUTROPHILS 70.6 % (40-80); PLATELET COUNT 78 10x3/uL (130-400); RBC 3.73 10x6/uL (4.20-6.10); RDW 14.1 % (11.5-14.5); WBC 6.1 10x3/uL (4.8-10.8)
[2017-12-12 05:51] LABS: MCV 98.9 fL (80.0-100.0)
[2017-12-12 06:18] LABS: ALBUMIN 2.3 g/dL (3.4-5.0); ALKALINE PHOSPHATASE 88 U/L (46-116); ALT (SGPT) 21 U/L (10-68); CALC OSMOLALITY 263 mosm/kg (275-300); CALCIUM 7.6 mg/dL (8.5-10.1); CARBON DIOXIDE 25.6 mmol/L (21.0-32.0); CHLORIDE - SERUM 101 mmol/L (98-107); CREATININE - SERUM 0.7 mg/dL (0.6-1.3); GLUCOSE 89 mg/dL (74-106); MAGNESIUM - SERUM 1.9 mg/dL (1.8-2.4); PHOSPHOROUS 2.5 mg/dL (2.5-4.9); POTASSIUM - SERUM 4.1 mmol/L (3.5-5.1); SODIUM 133 mmol/L (136-145); TROPONIN-I < 0.017 ng/mL (0.000-0.060); UREA NITROGEN 11 mg/dL (7-18); eGFR NON AFRICAN AMERICAN > 90 mL/min (90-120)
[2017-12-12 12:15] LABS: APPEARANCE HAZY (CLEAR); COLOR DK YELLOW (YELLOW); GLUCOSE NEGATIVE (NEGATIVE); KETONE NEGATIVE (NEGATIVE); NITRITE NEGATIVE (NEGATIVE); PROTEIN NEGATIVE (NEGATIVE); SPECIFIC GRAVITY 1.015 (1.005-1.020)
[2017-12-12 12:16] LABS: BILIRUBIN NEGATIVE (NEGATIVE)
[2017-12-12 12:18] LABS: BACTERIA FEW /hpf (NONE SEEN); EPITHELIAL CELLS 0-5 /hpf (0-5); MUCUS <1+ /lpf (NONE SEEN); WHITE CELLS - URINE 0-5 /hpf (0-5)
[2017-12-13 04:00] VITALS: BP 100/55
[2017-12-13 08:04] VITALS: BP 93/51
[2017-12-13 12:14] VITALS: BP 90/75
[2017-12-13 16:16] VITALS: BP 100/59
[2017-12-13 20:00] VITALS: BP 98/68
[2017-12-14 04:00] VITALS: BP 105/75
[2017-12-14 05:15] LABS: BASOPHILS 0.1 % (0-2); EOSINOPHILS 0.5 % (0-7); HEMATOCRIT 36.9 % (42.0-54.0); HEMOGLOBIN 12.7 g/dL (13.5-17.5); IMMATURE GRANULOCYTES 0.5 % (0-5); LYMPHOCYTES 7.5 % (15-50); MCHC 34.4 g/dL (31.0-37.0); MCV 95.8 fL (80.0-100.0); MEAN PLATELET VOLUME 10.2 fL (7.4-10.4); MONOCYTES 23.6 % (2-11); NEUTROPHILS 67.8 % (40-80); PLATELET COUNT 88 10x3/uL (130-400); RBC 3.85 10x6/uL (4.20-6.10); RDW 13.6 % (11.5-14.5); WBC 7.3 10x3/uL (4.8-10.8)
[2017-12-14 05:28] LABS: ALBUMIN 2.3 g/dL (3.4-5.0); ALKALINE PHOSPHATASE 92 U/L (46-116); ALT (SGPT) 21 U/L (10-68); BILIRUBIN - TOTAL 2.89 mg/dL (0.2-1.3); CALC OSMOLALITY 264 mosm/kg (275-300); CALCIUM 7.9 mg/dL (8.5-10.1); CARBON DIOXIDE 26.2 mmol/L (21.0-32.0); CHLORIDE - SERUM 98 mmol/L (98-107); CREATININE - SERUM 0.6 mg/dL (0.6-1.3); GLUCOSE 101 mg/dL (74-106); MAGNESIUM - SERUM 2.1 mg/dL (1.8-2.4); PHOSPHOROUS 2.1 mg/dL (2.5-4.9); PROTEIN - SERUM 6.2 g/dL (6.4-8.2); SODIUM 133 mmol/L (136-145); UREA NITROGEN 10 mg/dL (7-18); eGFR NON AFRICAN AMERICAN > 90 mL/min (90-120)
[2017-12-14 10:56] VITALS: BP 94/60
[2017-12-14 15:03] VITALS: BP 112/68
[2017-12-14 16:52] VITALS: BP 104/69
[2017-12-14 20:00] VITALS: BP 103/67
[2017-12-15] VITALS: BP 91/60
[2017-12-15 04:00] VITALS: BP 100/62
[2017-12-15 06:24] LABS: BASOPHILS 0.3 % (0-2); EOSINOPHILS 0.5 % (0-7); HEMATOCRIT 37.3 % (42.0-54.0); HEMOGLOBIN 13.1 g/dL (13.5-17.5); IMMATURE GRANULOCYTES 0.9 % (0-5); LYMPHOCYTES 16.4 % (15-50); MCH 32.8 pg (26.0-34.0); MCHC 35.1 g/dL (31.0-37.0); MCV 93.5 fL (80.0-100.0); MEAN PLATELET VOLUME 10.3 fL (7.4-10.4); MONOCYTES 23.1 % (2-11); NEUTROPHILS 58.8 % (40-80); PLATELET COUNT 103 10x3/uL (130-400); RBC 3.99 10x6/uL (4.20-6.10); RDW 13.5 % (11.5-14.5)
[2017-12-15 06:39] LABS: ALBUMIN 2.2 g/dL (3.4-5.0); ALKALINE PHOSPHATASE 91 U/L (46-116); ALT (SGPT) 19 U/L (10-68); BILIRUBIN - TOTAL 3.15 mg/dL (0.2-1.3); CALC OSMOLALITY 264 mosm/kg (275-300); CALCIUM 7.6 mg/dL (8.5-10.1); CARBON DIOXIDE 26.5 mmol/L (21.0-32.0); CHLORIDE - SERUM 97 mmol/L (98-107); CREATININE - SERUM 0.6 mg/dL (0.6-1.3); GLUCOSE 114 mg/dL (74-106); MAGNESIUM - SERUM 1.8 mg/dL (1.8-2.4); PHOSPHOROUS 2.2 mg/dL (2.5-4.9); PROTEIN - SERUM 6.2 g/dL (6.4-8.2); SODIUM 132 mmol/L (136-145); UREA NITROGEN 9 mg/dL (7-18); eGFR NON AFRICAN AMERICAN > 90 mL/min (90-120)
[2017-12-15 06:40] LABS: POTASSIUM - SERUM 2.4 mmol/L (3.5-5.1)
[2017-12-15 08:07] VITALS: BP 154/88
[2017-12-15 11:57] VITALS: BP 176/80
[2017-12-15 15:29] VITALS: BP 168/70
[2017-12-15 20:55] VITALS: BP 103/66
[2017-12-16 05:40] VITALS: BP 100/68
[2017-12-16 07:51] LABS: BASOPHILS 0.2 % (0-2); EOSINOPHILS 0.7 % (0-7); HEMATOCRIT 37.9 % (42.0-54.0); HEMOGLOBIN 13.2 g/dL (13.5-17.5); IMMATURE GRANULOCYTES 1.1 % (0-5); LYMPHOCYTES 12.2 % (15-50); MCH 32.5 pg (26.0-34.0); MCHC 34.8 g/dL (31.0-37.0); MCV 93.3 fL (80.0-100.0); MEAN PLATELET VOLUME 10.7 fL (7.4-10.4); NEUTROPHILS 69.8 % (40-80); PLATELET COUNT 111 10x3/uL (130-400); RBC 4.06 10x6/uL (4.20-6.10); RDW 13.7 % (11.5-14.5); WBC 10.2 10x3/uL (4.8-10.8)
[2017-12-16 08:04] LABS: CALC OSMOLALITY 271 mosm/kg (275-300); CALCIUM 7.5 mg/dL (8.5-10.1); CARBON DIOXIDE 27.2 mmol/L (21.0-32.0); CHLORIDE - SERUM 101 mmol/L (98-107); CREATININE - SERUM 0.6 mg/dL (0.6-1.3); GLUCOSE 97 mg/dL (74-106); SODIUM 137 mmol/L (136-145); UREA NITROGEN 8 mg/dL (7-18); eGFR NON AFRICAN AMERICAN > 90 mL/min (90-120)
[2017-12-16 08:06] LABS: POTASSIUM - SERUM 2.7 mmol/L (3.5-5.1)
[2017-12-16 09:39] VITALS: BP 97/64
[2017-12-16 13:56] VITALS: BP 97/73
[2017-12-16 17:17] VITALS: BP 100/73
== END 2017-12-16 18:04 | disposition home or self-care (01) | DRG 355 ==
LOC: D.ER 02:38 → D.EDHOLD 03:17 → D.MS 03:17
PROVIDERS: Emergency Medicine; Surgery
PROC: 0WUF0JZ Supplement Abdominal Wall with Synthetic Substitute, Open Approach (ICD-10-PCS; principal; 2017-12-11 11:00)
DX: K43.0 Incisional hernia with obstruction, without gangrene (principal); K76.9 Liver disease, unspecified

== ENCOUNTER → 2017-12-30 08:33 | Outpatient (CLI) | payer MEDICAID ==
[2017-12-12 12:08] VITALS: BMI 27.4
[2017-12-30 10:00] LABS: ALBUMIN 2.3 g/dL (3.4-5.0); ALKALINE PHOSPHATASE 101 U/L (46-116); ALT (SGPT) 19 U/L (10-68); CALC OSMOLALITY 259 mosm/kg (275-300); CALCIUM 8.8 mg/dL (8.5-10.1); CARBON DIOXIDE 25.7 mmol/L (21.0-32.0); CHLORIDE - SERUM 96 mmol/L (98-107); CREATININE - SERUM 0.9 mg/dL (0.6-1.3); GLUCOSE 104 mg/dL (74-106); PROTEIN - SERUM 7.8 g/dL (6.4-8.2); SODIUM 130 mmol/L (136-145); UREA NITROGEN 9 mg/dL (7-18); eGFR NON AFRICAN AMERICAN > 90 mL/min (90-120)
== END | disposition home or self-care (01) ==
LOC: D.MRI 08:30
PROVIDERS: Specialist
DX: R16.0 Hepatomegaly, not elsewhere classified (principal)

== ENCOUNTER 2020-12-20 12:16 | Inpatient (IN) | payer MEDICARE ==
[~2020-12-20] VITALS: Ht 180.3 cm; Wt 89.4 kg
[2020-12-20 13:37] LABS: BASOPHILS 1.8 % (0-2); EOSINOPHILS 3.3 % (0-7); HEMATOCRIT 34.1 % (42.0-54.0); IMMATURE GRANULOCYTES 0.3 % (0-5); LYMPHOCYTE ABS# 1.16 10x3/uL (1.32-3.57); LYMPHOCYTES 29.3 % (15-50); MCH 33.7 pg (26.0-34.0); MCHC 35.2 g/dL (31.0-37.0); MCV 95.8 fL (80.0-100.0); MEAN PLATELET VOLUME 9.8 fL (7.4-10.4); MONOCYTES 9.6 % (2-11); NEUTROPHIL ABS# 2.21 10x3/uL (1.78-5.38); NEUTROPHILS 55.7 % (40-80); RBC 3.56 10x6/uL (4.20-6.10); RDW 14.8 % (11.5-14.5)
[2020-12-20 13:38] LABS: PLATELET COUNT 70 10x3/uL (130-400)
[2020-12-20 13:52] LABS: APTT 35.6 SECONDS (22.8-39.4); INR 1.85 (0.85-1.17); PROTIME 19.8 SECONDS (11.6-15.0)
[2020-12-20 13:55] LABS: CALC OSMOLALITY 256 mosm/kg (275-300); CARBON DIOXIDE 26.5 mmol/L (21.0-32.0); CHLORIDE - SERUM 97 mmol/L (98-107); CREATININE - SERUM 0.8 mg/dL (0.6-1.3); GLUCOSE 86 mg/dL (74-106); POTASSIUM - SERUM 3.1 mmol/L (3.5-5.1); SODIUM 130 mmol/L (136-145); UREA NITROGEN 5 mg/dL (7-18); eGFR NON AFRICAN AMERICAN > 90 mL/min (90-120)
[2020-12-20 14:10] LABS: ALBUMIN 1.8 g/dL (3.4-5.0); ALKALINE PHOSPHATASE 105 U/L (30-120); ALT (SGPT) 14 U/L (10-68); BILIRUBIN - TOTAL 6.78 mg/dL (0.2-1.3); CKMB 0.2 U/L (0.0-3.6); CREATINE KINASE 134 UL (21-232); LIPASE 98 U/L (73-393); PRO BNP 805 pg/mL (0-125); PROTEIN - SERUM 7.3 g/dL (6.4-8.2); TROPONIN-I < 0.017 ng/mL (0.000-0.060)
--- NOTE | 2020-12-20 14:59 | NUR ---
RESPIRATORY CALLED [facility]
[2020-12-20 15:07] VITALS: BP 101/61
[2020-12-20 15:10] LABS: PLATELET ESTIMATE DECREASED
[2020-12-20 15:33] LABS: MAGNESIUM - SERUM 1.9 mg/dL (1.8-2.4); THYROID STIMULATING HORMONE 3.4 uIU/mL (0.36-3.74)
--- NOTE | 2020-12-20 16:28 | NUR ---
REPORT GIVEN TO EUGENIA TYLER, WITH VERBAL ACKNOWLEDGEMENT
--- NOTE | 2020-12-20 16:29 | NUR ---
TRANSPORT HAS BEEN CALLED
[2020-12-20 17:22] VITALS: BP 111/74; BMI 27.5
--- NOTE | 2020-12-20 17:32 | NUR ---
PATIENT ADMITTED TO ROOM 2205. ADMISSION COMPLETE. BED LOW. CALL HAILE AND PERSONAL ITEMS IN REACH. WILL CONTINUE TO MONITOR.
--- NOTE | 2020-12-20 18:04 | NUR ---
CONSENT OBTAINED FOR PROCEDURE AND ON CHART.
[2020-12-20 20:00] VITALS: BP 96/58
[2020-12-21 04:00] VITALS: BP 101/69
[2020-12-21 06:49] LABS: BASOPHILS 1.9 % (0-2); EOSINOPHILS 5.3 % (0-7); HEMATOCRIT 28.8 % (42.0-54.0); HEMOGLOBIN 9.8 g/dL (13.5-17.5); LYMPHOCYTE ABS# 0.91 10x3/uL (1.32-3.57); LYMPHOCYTES 28.3 % (15-50); MCH 32.2 pg (26.0-34.0); MCV 94.7 fL (80.0-100.0); MEAN PLATELET VOLUME 9.8 fL (7.4-10.4); MONOCYTES 15.9 % (2-11); NEUTROPHIL ABS# 1.56 10x3/uL (1.78-5.38); NEUTROPHILS 48.6 % (40-80); PLATELET COUNT 63 10x3/uL (130-400); RBC 3.04 10x6/uL (4.20-6.10); RDW 14.7 % (11.5-14.5); WBC 3.2 10x3/uL (4.8-10.8)
[2020-12-21 08:05] LABS: ALBUMIN 1.5 g/dL (3.4-5.0); ALKALINE PHOSPHATASE 83 U/L (30-120); ALT (SGPT) 18 U/L (10-68); BILIRUBIN - TOTAL 6.12 mg/dL (0.2-1.3); CALC OSMOLALITY 261 mosm/kg (275-300); CALCIUM 7.6 mg/dL (8.5-10.1); CARBON DIOXIDE 25.7 mmol/L (21.0-32.0); CHLORIDE - SERUM 101 mmol/L (98-107); CREATININE - SERUM 0.7 mg/dL (0.6-1.3); GLUCOSE 77 mg/dL (74-106); MAGNESIUM - SERUM 1.5 mg/dL (1.8-2.4); PHOSPHOROUS 3.6 mg/dL (2.5-4.9); POTASSIUM - SERUM 3.2 mmol/L (3.5-5.1); SODIUM 133 mmol/L (136-145); UREA NITROGEN 5 mg/dL (7-18); eGFR NON AFRICAN AMERICAN > 90 mL/min (90-120)
[2020-12-21 08:40] VITALS: BP 98/60
[2020-12-21 08:53] LABS: APTT 42.5 SECONDS (22.8-39.4)
[2020-12-21 10:03] LABS: INR 2.04 (0.85-1.17); PROTIME 21.4 SECONDS (11.6-15.0)
[2020-12-21 13:07] VITALS: BP 97/58
[2020-12-21 16:39] VITALS: BP 86/54
--- NOTE | 2020-12-21 18:45 | NUR ---
PATIENT IN BED WITH IV INTACT. NO COMPLAINTS OR SIGNS OF DISTRESS. CALL LIGHT WITHIN REACH.
[2020-12-21 19:36] LABS: BILIRUBIN NEGATIVE (NEGATIVE); KETONE NEGATIVE (NEGATIVE); NITRITE NEGATIVE (NEGATIVE); UROBILINOGEN NORMAL mg/dL (< 2)
[2020-12-21 20:00] VITALS: BP 91/52
--- NOTE | 2020-12-22 02:32 | NUR ---
PT IN BED WATCHING TV WITH IV INTACT. PT REFUSE LACTULOSE MED SINCE HE IS HAVING DIAHRREA AND SOME STOMACH DISCOMFORT. CALL LIGHT WITHIN REACH WILL CONT TO MONITOR.
[2020-12-22 04:00] VITALS: BP 94/59
--- NOTE | 2020-12-22 06:34 | NUR ---
I have reviewed this patient and I concur with the Shift Assessment completed by the Licensed Practical Nurse today this shift.
[2020-12-22 06:48] LABS: BASOPHILS 1.7 % (0-2); EOSINOPHILS 6.7 % (0-7); HEMATOCRIT 31.5 % (42.0-54.0); HEMOGLOBIN 10.6 g/dL (13.5-17.5); IMMATURE GRANULOCYTES 0.3 % (0-5); LYMPHOCYTE ABS# 1.09 10x3/uL (1.32-3.57); LYMPHOCYTES 31.7 % (15-50); MCH 33.4 pg (26.0-34.0); MCHC 33.7 g/dL (31.0-37.0); MEAN PLATELET VOLUME 10.6 fL (7.4-10.4); MONOCYTES 12.5 % (2-11); NEUTROPHIL ABS# 1.62 10x3/uL (1.78-5.38); NEUTROPHILS 47.1 % (40-80); PLATELET COUNT 67 10x3/uL (130-400); RBC 3.17 10x6/uL (4.20-6.10); RDW 14.9 % (11.5-14.5); WBC 3.4 10x3/uL (4.8-10.8)
[2020-12-22 06:56] LABS: MCV 99.4 fL (80.0-100.0)
[2020-12-22 07:13] LABS: ALBUMIN 1.6 g/dL (3.4-5.0); ALKALINE PHOSPHATASE 90 U/L (30-120); ALT (SGPT) 15 U/L (10-68); BILIRUBIN - TOTAL 6.38 mg/dL (0.2-1.3); CALCIUM 7.9 mg/dL (8.5-10.1); CARBON DIOXIDE 27.7 mmol/L (21.0-32.0); CHLORIDE - SERUM 98 mmol/L (98-107); GLUCOSE 83 mg/dL (74-106); MAGNESIUM - SERUM 1.7 mg/dL (1.8-2.4); PHOSPHOROUS 4.1 mg/dL (2.5-4.9); POTASSIUM - SERUM 3.6 mmol/L (3.5-5.1); PROTEIN - SERUM 6.6 g/dL (6.4-8.2); SODIUM 133 mmol/L (136-145)
[2020-12-22 07:14] LABS: CALC OSMOLALITY 262 mosm/kg (275-300); CREATININE - SERUM 0.9 mg/dL (0.6-1.3); UREA NITROGEN 7 mg/dL (7-18); eGFR NON AFRICAN AMERICAN > 90 mL/min (90-120)
[2020-12-22 07:33] LABS: APTT 38.8 SECONDS (22.8-39.4); INR 1.88 (0.85-1.17)
[2020-12-22 08:22] VITALS: BP 129/69
[2020-12-22 09:47] LABS: PLATELET ESTIMATE DECREASED
[2020-12-22 09:48] LABS: ANISOCYTOSIS OCC
[2020-12-22 12:43] VITALS: BP 103/53
[2020-12-22 16:54] VITALS: BP 109/70
[2020-12-22 20:00] VITALS: BP 79/48
[2020-12-23] VITALS: BP 83/55
--- NOTE | 2020-12-23 01:48 | NUR ---
PT RESTING IN BED NO NEEDS PRESENT AT THE TIME. WILL CONT TO MONITOR.
--- NOTE | 2020-12-23 02:01 | NUR ---
IV REMOVED FROM RIGHT FOREARM BLEEDING. NEW IV PLACE IN LEFT FOREARM SALINE LOCK.
--- NOTE | 2020-12-23 02:54 | NUR ---
I have reviewed this patient and I concur with the Shift Assessment completed by the Licensed Practical Nurse today this shift.
[2020-12-23 04:00] VITALS: BP 88/55
[2020-12-23 05:42] LABS: BASOPHILS 2.1 % (0-2); EOSINOPHILS 6.2 % (0-7); HEMATOCRIT 30.7 % (42.0-54.0); HEMOGLOBIN 10.2 g/dL (13.5-17.5); IMMATURE GRANULOCYTES 0.3 % (0-5); LYMPHOCYTES 29.5 % (15-50); MCHC 33.2 g/dL (31.0-37.0); MCV 99.4 fL (80.0-100.0); MEAN PLATELET VOLUME 10.7 fL (7.4-10.4); MONOCYTES 11.5 % (2-11); NEUTROPHIL ABS# 1.88 10x3/uL (1.78-5.38); NEUTROPHILS 50.4 % (40-80); PLATELET COUNT 64 10x3/uL (130-400); RBC 3.09 10x6/uL (4.20-6.10); RDW 14.8 % (11.5-14.5); WBC 3.7 10x3/uL (4.8-10.8)
--- NOTE | 2020-12-23 06:11 | NUR ---
Pt is resting in bed at this time. C/o frequent voids t/o the night. Did accept AM Lasix today. Watching TV at this time.
[2020-12-23 06:53] LABS: ALBUMIN 1.6 g/dL (3.4-5.0); ALKALINE PHOSPHATASE 94 U/L (30-120); ALT (SGPT) 16 U/L (10-68); BILIRUBIN - TOTAL 5.99 mg/dL (0.2-1.3); CALC OSMOLALITY 260 mosm/kg (275-300); CALCIUM 7.9 mg/dL (8.5-10.1); CARBON DIOXIDE 27.1 mmol/L (21.0-32.0); CHLORIDE - SERUM 98 mmol/L (98-107); CREATININE - SERUM 0.8 mg/dL (0.6-1.3); GLUCOSE 96 mg/dL (74-106); MAGNESIUM - SERUM 1.7 mg/dL (1.8-2.4); PHOSPHOROUS 3.7 mg/dL (2.5-4.9); PROTEIN - SERUM 6.6 g/dL (6.4-8.2); SODIUM 131 mmol/L (136-145); UREA NITROGEN 7 mg/dL (7-18); eGFR NON AFRICAN AMERICAN > 90 mL/min (90-120)
[2020-12-23 06:55] LABS: POTASSIUM - SERUM 4.2 mmol/L (3.5-5.1)
[2020-12-23 08:28] VITALS: BP 86/53
[2020-12-23 08:46] VITALS: BP 110/60
[2020-12-23 10:15] LABS: INR 2.02 (0.85-1.17); PROTIME 21.2 SECONDS (11.6-15.0)
[2020-12-23 13:06] VITALS: BP 92/56
[2020-12-23 17:02] VITALS: BP 82/51
[2020-12-24 00:22] VITALS: BP 89/57
[2020-12-24 04:36] VITALS: BP 101/67
[2020-12-24 06:54] LABS: BASOPHILS 0.4 % (0-2); EOSINOPHILS 1.5 % (0-7); HEMATOCRIT 30.8 % (42.0-54.0); HEMOGLOBIN 10.5 g/dL (13.5-17.5); IMMATURE GRANULOCYTES 0.4 % (0-5); LYMPHOCYTE ABS# 0.82 10x3/uL (1.32-3.57); LYMPHOCYTES 15.8 % (15-50); MCH 33.4 pg (26.0-34.0); MCHC 34.1 g/dL (31.0-37.0); MCV 98.1 fL (80.0-100.0); MEAN PLATELET VOLUME 10.7 fL (7.4-10.4); MONOCYTES 13.3 % (2-11); NEUTROPHIL ABS# 3.56 10x3/uL (1.78-5.38); NEUTROPHILS 68.6 % (40-80); PLATELET COUNT 65 10x3/uL (130-400); RBC 3.14 10x6/uL (4.20-6.10); RDW 14.9 % (11.5-14.5)
[2020-12-24 07:02] LABS: WBC 5.2 10x3/uL (4.8-10.8)
[2020-12-24 07:04] LABS: PROTIME 21.1 SECONDS (11.6-15.0)
[2020-12-24 07:22] LABS: ALBUMIN 1.7 g/dL (3.4-5.0); ALKALINE PHOSPHATASE 92 U/L (30-120); ALT (SGPT) 17 U/L (10-68); BILIRUBIN - TOTAL 5.86 mg/dL (0.2-1.3); CALC OSMOLALITY 254 mosm/kg (275-300); CALCIUM 8.4 mg/dL (8.5-10.1); CARBON DIOXIDE 25.4 mmol/L (21.0-32.0); CHLORIDE - SERUM 96 mmol/L (98-107); CREATININE - SERUM 0.9 mg/dL (0.6-1.3); GLUCOSE 94 mg/dL (74-106); MAGNESIUM - SERUM 1.7 mg/dL (1.8-2.4); PHOSPHOROUS 3.1 mg/dL (2.5-4.9); POTASSIUM - SERUM 4.7 mmol/L (3.5-5.1); PROTEIN - SERUM 6.9 g/dL (6.4-8.2); SODIUM 128 mmol/L (136-145); UREA NITROGEN 6 mg/dL (7-18); eGFR NON AFRICAN AMERICAN > 90 mL/min (90-120)
[2020-12-24 08:46] VITALS: BP 103/69
[2020-12-24 12:30] VITALS: BP 108/74
[2020-12-24 18:07] VITALS: BP 99/65
[2020-12-24 20:54] VITALS: BP 99/73
[2020-12-25 01:09] VITALS: BP 116/77
[2020-12-25 05:39] VITALS: BP 115/81
[2020-12-25 06:03] LABS: BASOPHILS 0.6 % (0-2); EOSINOPHILS 2.6 % (0-7); HEMATOCRIT 29.2 % (42.0-54.0); HEMOGLOBIN 9.9 g/dL (13.5-17.5); IMMATURE GRANULOCYTES 0.2 % (0-5); LYMPHOCYTE ABS# 1.02 10x3/uL (1.32-3.57); MCHC 33.9 g/dL (31.0-37.0); MCV 97.3 fL (80.0-100.0); MEAN PLATELET VOLUME 10.6 fL (7.4-10.4); MONOCYTES 12.1 % (2-11); NEUTROPHIL ABS# 3.51 10x3/uL (1.78-5.38); NEUTROPHILS 65.5 % (40-80); PLATELET COUNT 60 10x3/uL (130-400); RDW 15.2 % (11.5-14.5); WBC 5.4 10x3/uL (4.8-10.8)
[2020-12-25 06:06] LABS: INR 2.09 (0.85-1.17); PROTIME 21.8 SECONDS (11.6-15.0)
[2020-12-25 06:18] LABS: ALBUMIN 1.6 g/dL (3.4-5.0); ALKALINE PHOSPHATASE 79 U/L (30-120); ALT (SGPT) 17 U/L (10-68); BILIRUBIN - TOTAL 5.77 mg/dL (0.2-1.3); CALC OSMOLALITY 253 mosm/kg (275-300); CALCIUM 8.4 mg/dL (8.5-10.1); CARBON DIOXIDE 24.4 mmol/L (21.0-32.0); CHLORIDE - SERUM 98 mmol/L (98-107); CREATININE - SERUM 0.8 mg/dL (0.6-1.3); GLUCOSE 85 mg/dL (74-106); PHOSPHOROUS 3.6 mg/dL (2.5-4.9); POTASSIUM - SERUM 4.8 mmol/L (3.5-5.1); PROTEIN - SERUM 6.5 g/dL (6.4-8.2); SODIUM 128 mmol/L (136-145); eGFR NON AFRICAN AMERICAN > 90 mL/min (90-120)
[2020-12-25 06:22] LABS: UREA NITROGEN 8 mg/dL (7-18)
[2020-12-25 09:11] VITALS: BP 97/65
[2020-12-25 10:57] LABS: PLATELET ESTIMATE DECREASED
[2020-12-25 10:58] LABS: ANISOCYTOSIS OCC; ROULEAUX OCC
[2020-12-25 13:08] VITALS: BP 98/62
[2020-12-25 17:16] VITALS: BP 98/63
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
[2020-12-26 05:01] LABS: BASOPHILS 0.4 % (0-2); EOSINOPHILS 1.4 % (0-7); HEMATOCRIT 28.6 % (42.0-54.0); HEMOGLOBIN 9.8 g/dL (13.5-17.5); IMMATURE GRANULOCYTES 0.4 % (0-5); LYMPHOCYTE ABS# 0.92 10x3/uL (1.32-3.57); LYMPHOCYTES 16.1 % (15-50); MCH 33.3 pg (26.0-34.0); MCHC 34.3 g/dL (31.0-37.0); MCV 97.3 fL (80.0-100.0); MEAN PLATELET VOLUME 9.8 fL (7.4-10.4); MONOCYTES 15.2 % (2-11); NEUTROPHILS 66.5 % (40-80); PLATELET COUNT 66 10x3/uL (130-400); RBC 2.94 10x6/uL (4.20-6.10); RDW 15.2 % (11.5-14.5); WBC 5.7 10x3/uL (4.8-10.8)
[2020-12-26 05:11] LABS: PLATELET ESTIMATE DECREASED
[2020-12-26 05:16] LABS: INR 1.96 (0.85-1.17); PROTIME 20.7 SECONDS (11.6-15.0)
[2020-12-26 05:28] VITALS: BP 158/65
[2020-12-26 05:32] LABS: ALBUMIN 1.7 g/dL (3.4-5.0); ALKALINE PHOSPHATASE 82 U/L (30-120); ALT (SGPT) 19 U/L (10-68); BILIRUBIN - TOTAL 5.43 mg/dL (0.2-1.3); CALC OSMOLALITY 256 mosm/kg (275-300); CALCIUM 8.5 mg/dL (8.5-10.1); CARBON DIOXIDE 24.7 mmol/L (21.0-32.0); CHLORIDE - SERUM 98 mmol/L (98-107); CREATININE - SERUM 0.9 mg/dL (0.6-1.3); GLUCOSE 92 mg/dL (74-106); MAGNESIUM - SERUM 1.8 mg/dL (1.8-2.4); PHOSPHOROUS 4.2 mg/dL (2.5-4.9); POTASSIUM - SERUM 4.9 mmol/L (3.5-5.1); PROTEIN - SERUM 6.6 g/dL (6.4-8.2); SODIUM 129 mmol/L (136-145); UREA NITROGEN 8 mg/dL (7-18); eGFR NON AFRICAN AMERICAN > 90 mL/min (90-120)
--- NOTE | 2020-12-26 07:00 | NUR ---
0700 BEDISDE REPORT RECEIVED ASLEEP IN BED EASILY AWAKENED VOICES NO C/O
[2020-12-26 08:39] VITALS: BP 109/62
[2020-12-26 10:41] VITALS: Ht 180.3 cm; Wt 89.4 kg
--- NOTE | 2020-12-26 12:00 | NUR ---
1200 ASSIST X 2 TO BEDSIDE COMMODE PT WEAK ON HIS FEET VOIDED DARK URINE
[2020-12-26 12:03] VITALS: BP 87/50
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
--- NOTE | 2020-12-26 16:00 | NUR ---
1600 IN RECLINER CHAIR WITH EYES CLOSED
[2020-12-26 16:43] VITALS: BP 110/55
[2020-12-26 20:00] VITALS: BP 993/59
[2020-12-27] VITALS: BP 89/52
--- NOTE | 2020-12-27 03:56 | NUR ---
PATIENT HAS BEEN UP WITH ASSISTANCE TO THE BEDSIDE COMMODE, HE HAS UTILIZED THE URINAL, BED ALARM IS IN PLACE, DEIES PAIN AT THIS TIME.
[2020-12-27 04:00] VITALS: BP 82/48
[2020-12-27 06:24] LABS: INR 1.97 (0.85-1.17); PROTIME 20.8 SECONDS (11.6-15.0)
[2020-12-27 09:04] VITALS: BP 92/56
[2020-12-27 12:31] VITALS: BP 87/62
--- NOTE | 2020-12-27 12:52 | NUR ---
OT NOTE: PT VERY LETHARGIC TODAY; BROTHER AT BEDSIDE; BED MOB WITH MOD ASSIST AND EXT TIME; SIT TO STAND WITH MOD ASSIST; ABLE TO TRANSFER FROM BED TO BS COMMODE WITH WALKER AND MOD ASSIST.. MAX CUES FOR WALKER MGMT AND SAFETY IN STANDING..POOR STANDING BALANCE...TOILETING WITH MOD ASSIST; BACK TO BED WITH MOD ASSIST, WALKER, AND MAX VERBAL CUES. PT WITH SLOW PROCESSING AND POOR SAFETY AND BALANCE.. MAX ASSIST TO REPOSITION IN BED. MARSHALL ROSA, OTR/L [phone]
--- NOTE | 2020-12-27 14:03 | NUR ---
0700 BEDSIDE REPORT RECEIVED INCONTINENT IN BED COMPLETE LINEN CHANGE
--- NOTE | 2020-12-27 14:04 | NUR ---
1200 PATIENTS BROTHER AT BEDSIDE UPDATE PROVIDED PATIENT MORE ALERT THAN THE DAY BEFORE PHYSICAL THERAPY WITH ASSIST X 2 AND RETURNED TO BED
[2020-12-27 20:00] VITALS: BP 105/70
[2020-12-28] VITALS: BP 101/57
[2020-12-28 04:00] VITALS: BP 96/65
[2020-12-28 06:34] LABS: ALBUMIN 1.8 g/dL (3.4-5.0); ALKALINE PHOSPHATASE 84 U/L (30-120); ALT (SGPT) 18 U/L (10-68); BILIRUBIN - TOTAL 5.72 mg/dL (0.2-1.3); CALC OSMOLALITY 261 mosm/kg (275-300); CALCIUM 8.4 mg/dL (8.5-10.1); CHLORIDE - SERUM 100 mmol/L (98-107); CREATININE - SERUM 0.9 mg/dL (0.6-1.3); GLUCOSE 106 mg/dL (74-106); POTASSIUM - SERUM 4.2 mmol/L (3.5-5.1); PROTEIN - SERUM 6.9 g/dL (6.4-8.2); SODIUM 131 mmol/L (136-145); UREA NITROGEN 10 mg/dL (7-18); eGFR NON AFRICAN AMERICAN > 90 mL/min (90-120)
[2020-12-28 06:41] LABS: BASOPHILS 0.7 % (0-2); EOSINOPHILS 1.2 % (0-7); HEMOGLOBIN 10.5 g/dL (13.5-17.5); IMMATURE GRANULOCYTES 0.3 % (0-5); LYMPHOCYTE ABS# 1.08 10x3/uL (1.32-3.57); LYMPHOCYTES 18.2 % (15-50); MCH 33.8 pg (26.0-34.0); MCV 96.5 fL (80.0-100.0); MEAN PLATELET VOLUME 10.5 fL (7.4-10.4); MONOCYTES 17.3 % (2-11); NEUTROPHIL ABS# 3.71 10x3/uL (1.78-5.38); NEUTROPHILS 62.3 % (40-80); RBC 3.11 10x6/uL (4.20-6.10); RDW 15.3 % (11.5-14.5)
[2020-12-28 06:47] LABS: INR 1.91 (0.85-1.17); PROTIME 20.3 SECONDS (11.6-15.0)
[2020-12-28 06:49] LABS: PLATELET COUNT 82 10x3/uL (130-400)
--- NOTE | 2020-12-28 07:31 | NUR ---
PATIENT DENIES PAIN, HE APPEARS TO HAVE RESTED WELL LAST NIGHT. HE IS CURRENTLY RESTING IN BED WITH HIS EYES CLOSED.
--- NOTE | 2020-12-28 08:36 | NUR ---
PER ANN WITH IR TIPS PROCEDURE IS NOT GOING TO HAPPEN DUE TO HIGH RISK OF COMPLICATIONS, NO OTHER PROCEDURES ORDERED AT THIS TIME, OK TO PLACE BACK ON REG DIET
[2020-12-28 08:44] VITALS: BP 95/62
[2020-12-28 14:00] VITALS: BP 133/72
--- NOTE | 2020-12-28 16:03 | NUR ---
OT NOTE: PT COMPLETED BED MOB WITH MAX A. PT COMPLETED EOB SITTING WITH MIN-MOD A. PT COMPLETED SIT TO STAND WITH MOD A. PT COMPLETED BED TO CHAIR TSF WITH MAX A. PT IS EASILY FATIGUED. PT REQUIRED EXTENSIVE CUES FOR FOOT PLACEMENT. PT REQUIRED UB HYGIENE WITH MOD A. PT REQUIRED MAX-TOTAL FOR CHAIR TO BED TSF. [phone] THANK YOU,SAMANTHA FABIAN
[2020-12-28 18:13] VITALS: BP 113/62
[2020-12-28 20:00] VITALS: BP 92/60
[2020-12-29 04:00] VITALS: BP 90/63
--- NOTE | 2020-12-29 05:15 | NUR ---
PATIENT APPEARED TO REST WELL THROUGH THE NIGHT, HE IS CURRENTLY RESTING IN BED WITH HIS EYES CLOSED.
[2020-12-29 06:04] LABS: BASOPHILS 0.5 % (0-2); HEMATOCRIT 32.1 % (42.0-54.0); IMMATURE GRANULOCYTES 0.2 % (0-5); LYMPHOCYTE ABS# 0.92 10x3/uL (1.32-3.57); LYMPHOCYTES 16.8 % (15-50); MCH 33.5 pg (26.0-34.0); MCHC 34.3 g/dL (31.0-37.0); MCV 97.9 fL (80.0-100.0); MEAN PLATELET VOLUME 10.2 fL (7.4-10.4); MONOCYTES 16.1 % (2-11); NEUTROPHIL ABS# 3.42 10x3/uL (1.78-5.38); NEUTROPHILS 62.4 % (40-80); PLATELET COUNT 79 10x3/uL (130-400); RBC 3.28 10x6/uL (4.20-6.10); RDW 15.2 % (11.5-14.5); WBC 5.5 10x3/uL (4.8-10.8)
[2020-12-29 06:43] LABS: ALBUMIN 1.8 g/dL (3.4-5.0); ALKALINE PHOSPHATASE 86 U/L (30-120); ALT (SGPT) 19 U/L (10-68); BILIRUBIN - TOTAL 5.53 mg/dL (0.2-1.3); CALC OSMOLALITY 264 mosm/kg (275-300); CALCIUM 8.5 mg/dL (8.5-10.1); CARBON DIOXIDE 24.1 mmol/L (21.0-32.0); CHLORIDE - SERUM 99 mmol/L (98-107); GLUCOSE 96 mg/dL (74-106); POTASSIUM - SERUM 4.2 mmol/L (3.5-5.1); PROTEIN - SERUM 6.7 g/dL (6.4-8.2); SODIUM 133 mmol/L (136-145); UREA NITROGEN 11 mg/dL (7-18); eGFR NON AFRICAN AMERICAN 83 mL/min (90-120)
[2020-12-29 07:52] VITALS: BP 96/70
[2020-12-29 10:25] LABS: PLATELET ESTIMATE DECREASED
[2020-12-29 10:38] LABS: ROULEAUX OCC
[2020-12-29 11:20] VITALS: BP 94/56
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
[2020-12-29 15:56] VITALS: BP 96/65
--- NOTE | 2020-12-29 16:42 | NUR ---
OT NOTE: PT COMPLETED FACE HYGIENE WITH SETUP AND MOD CUES. PT COMPLETED BED MOB WITH CGA. PT COMPLETED SIT TO STAND WITH CGA-MIN A. PT COMPLETED SIDE STEPS WITH CGA. PT COMPLETED BUE AROM WITH WALKER MANAGEMENT. PT EXHIBITED IMPROVED FUNCTIONAL PERFORMANCE. [phone] THANK YOU,SAMANTHA FABIAN
--- NOTE | 2020-12-29 18:45 | NUR ---
I have reviewed this patient and I concur with the Shift Assessment completed by the Licensed Practical Nurse today this shift.
[2020-12-29 20:00] VITALS: BP 77/51
[2020-12-30] VITALS: BP 85/59
[2020-12-30 04:00] VITALS: BP 94/64
[2020-12-30 06:58] LABS: ALBUMIN 1.8 g/dL (3.4-5.0); ALKALINE PHOSPHATASE 87 U/L (30-120); ALT (SGPT) 15 U/L (10-68); BILIRUBIN - TOTAL 5.44 mg/dL (0.2-1.3); CALC OSMOLALITY 255 mosm/kg (275-300); CALCIUM 8.7 mg/dL (8.5-10.1); CARBON DIOXIDE 25.4 mmol/L (21.0-32.0); CHLORIDE - SERUM 99 mmol/L (98-107); CREATININE - SERUM 0.8 mg/dL (0.6-1.3); GLUCOSE 89 mg/dL (74-106); SODIUM 128 mmol/L (136-145); UREA NITROGEN 13 mg/dL (7-18); eGFR NON AFRICAN AMERICAN > 90 mL/min (90-120)
[2020-12-30 07:34] LABS: BASOPHILS 1.3 % (0-2); EOSINOPHILS 4.4 % (0-7); HEMATOCRIT 31.3 % (42.0-54.0); HEMOGLOBIN 10.8 g/dL (13.5-17.5); IMMATURE GRANULOCYTES 0.8 % (0-5); LYMPHOCYTE ABS# 0.85 10x3/uL (1.32-3.57); LYMPHOCYTES 17.7 % (15-50); MCH 33.8 pg (26.0-34.0); MCHC 34.5 g/dL (31.0-37.0); MCV 97.8 fL (80.0-100.0); MEAN PLATELET VOLUME 10.4 fL (7.4-10.4); MONOCYTES 17.3 % (2-11); NEUTROPHIL ABS# 2.81 10x3/uL (1.78-5.38); NEUTROPHILS 58.5 % (40-80); PLATELET COUNT 88 10x3/uL (130-400); RDW 14.8 % (11.5-14.5); WBC 4.8 10x3/uL (4.8-10.8)
[2020-12-30 08:37] VITALS: BP 109/73
--- NOTE | 2020-12-30 10:26 | NUR ---
PTS CHART REVIEWED AGAIN THIS AM FOR INPATIENT REHAB. AT THIS TIME WE ARE GOING TO CONTINUE TO FOLLOW THE PATIENT TO SEE IF HE BECOMES MORE CONSISTENT WITH HIS THERAPIES, AND IF HIS MENTATION CLEARS A LITTLE MORE. THIS HAS BEEN DISCUSSED WITH LEO MYERS RN CM. CANDICE GREGORY RN CLINICAL LIAISON, INPATIENT REHAB.
[2020-12-30 12:19] VITALS: BP 86/56
--- NOTE | 2020-12-30 12:47 | NUR ---
Nutrition follow-up: Visited with pt and brother during breakfast. Pt with continued poor po intake; only a few bites of everything on plate per brother. Pt requested a chocolate Boost with meals; RDN ordered Labs reviewed Wt: 197# Pt currently not meeting estimated nutritional needs. Recommendations: Pt may benefit from an appetite stimulant May also need to consider NGT vs PEG tube placement and nutrition support started. RDN will follow-up: 01/02/21
[2020-12-30] MEDS ORDERED: XOPENEX 1.1.25 MG/3 UPD (15:41)
[2020-12-30] MEDS ORDERED: XIFAXAN550 MG PO (15:41)
[2020-12-30] MEDS ORDERED: ALBUTEROL2.5 MG/3 M UPD (15:41)
[2020-12-30] MEDS ORDERED: CHRONULAC30 ML PO (15:42)
[2020-12-30] MEDS ORDERED: LIBRIUM25 MG PO (15:42)
[2020-12-30] MEDS ORDERED: MUCINEX600 MG PO (15:42)
[2020-12-30] MEDS ORDERED: TESSALON PERLE100 MG PO (15:42)
[2020-12-30] MEDS ORDERED: PROTONIX40 MG PO (15:43)
[2020-12-30] MEDS ORDERED: MIRALAX17 GM PO (15:43)
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
--- NOTE | 2020-12-30 16:17 | NUR ---
OT NOTE: PT REQUIRED MIN-MOD A FOR SUPINE TO SIT. PT COMPLETED EOB SITTING WITH CGA. PT COMPLETED SIT TO STAND WITH MIN-MOD A. PT COMPLETED SELF FEEDING TASKS AT EOB WITH SBA. PT IS EASILY FATIGUED. PT WOULD BENEFIT FROM IP REHAB SERVICES TO INCREASE I WITH ADLS/IADLS. [phone] THANK YOU,SAMANTHA FABIAN
[2020-12-30 17:11] VITALS: BP 83/53
--- NOTE | 2020-12-30 18:04 | NUR ---
I have reviewed this patient and I concur with the Shift Assessment completed by the Licensed Practical Nurse today this shift.
--- NOTE | 2020-12-30 18:08 | NUR ---
PT DC DOWN TO REHAB AT THIS TIME WITH ALL PERSONAL BELONGING AT THIS [facility]. DAUGHTER WAS HERE AT BEDSIDE AND SIGN DC PAPERS. STABLE CONDITION UPON DEPARTURE.
--- NOTE | 2020-12-30 18:14 | MORECARE ---
CASE MANAGEMENT DISCHARGE SUMMARY PATIENT: RAUL CALDERON UNIT: [id number] ADM DATE: 12/20/20 AGE: 55 : 67 SEX: M ROOM/BED: D.2205 AUTHOR: HILTON,MARIA LUISA PHYSICIAN: REFERRING PHYSICIAN: TEJINDER CURRY MD DATE OF SERVICE: 12/30/20 Case Management Discharge Planning Summary COMMENTS ENTERED DATE: 12/30/20 15:43 CT COMMENT TYPE: Discharge Planning REVIEWER: Ayleen Castillo Spoke to patient's daughters (Stephenie [phone] & Cynthia [phone]) to discuss their fathers options for rehab. They would like him to go to inpatient rehab here at [facility]. Patient is agreeable to this. ANNA signed and IMM also signed. He has been accepted and he will be going to room 1115. CM to follow and assist as needed ENTERED DATE: 12/29/20 14:30 CT COMMENT TYPE: Discharge Planning REVIEWER: Ayleen Castillo CM spoke with Nacho dumont brother ([phone]) to discuss his discharge options. He stated that his daughters are on their way down from out of state and will be here this evening or tomorrow. He would like them to be involved with this decision. He stated that he would call me tomorrow and let me know what they decide. We discussed all levels of care. ENTERED DATE: 12/26/20 14:48 CT COMMENT TYPE: Discharge Planning REVIEWER: Ayleen Castillo CM met with patient to complete initial dc planning assessment. CM educated patient on the CM role and verbal consent given by patient to complete assessment. Patient lives at home, by himself where he states he is independent with his care. At discharge patient plans to return home and feels this is a safe discharge. 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 I am unsure on his ability to take care of himself in the current state he is in. He did not want rehab or home health. He did not think he needed it. CM discussed availability of home health, rehab services, and medical equipment. He does not use any DME, but said that he could get whatever DME he might needs. Patient denied known discharge needs at this time. CM will continue to follow and will assist as needed with dc plans/needs. DCP REVIEW SUMMARY ANTICIPATED D/C DATE: EXPECTED LOS : CASE STATUS: DCP Initiated INITIAL REVIEW: 12/20/2020 INITIAL REVIEWER: Ayleen Castillo FINAL DISCHARGE DISPOSITION: : FINAL REVIEWER: FINAL REVIEW DATE: DCP Focus Questions & Answers DCP Screen QUESTION: ANSWER High Risk Factors: : Abuse or neglect in the pre-admission environment DCP Evaluation QUESTION: ANSWER Patient's current cognitive status: : *Oriented to person, place, situation, time and present Patient's ability to cope with chronic illness : a. Adequate (0-3 ED visits in 6 mos., adequate financial resources, attends scheduled appts.) Family / Caregiver's ability to cope with chronic illness: : c. Inadequate (Enables pt. to make bad choices, cannot meet pt's. needs, difficult family dynamics) Alternate discharge plan (if recommended plan not agreed upon by patient and/or caregiver): : UNSURE WHAT HIS DC PLAN SHOULD BE Does the patient have the ability to pay for or attain post discharge needs / services? : Yes Functional screen assessment: : Noticeable poor ADL management Physical Status: : Independent with ADL's Functional screen comments: : UNSURE IF HE WILL BE ABLE TO CARE FOR HIMSELF Is there a likelihood that the patient will require additional services to return to the preadmission environment? : Yes Living Arrangements: : Home Alone with Support Patient with capacity for self-care or can be cared for in same environment as prior to hospitalization? : No Baseline cognitive status: : *Oriented to person, place, situation, time and present Living arrangements comments: : LIVES ALONE HAS A BROTHER Comments: : HAS A BROTHER AND AN AUNT Facility / Agency name and contact information from Question 3 (if applicable): : DR LUCAS ( PCP) Medication Management: : Patient states can afford medications Planned post hospital services available for patient? : No Pharmacy name(s): : [facility] [place] Does Patient have transportation to get home and to follow-up medical appointments when discharged from the hospital? : Yes Comments: : HE DRIVES AND HIS BROTHER WILL DRIVE HIM HOME Would patient like to participate in any Care Coordination programs (if applicable): : Not applicable Does the patient have electricity at home? : Yes Does the patient have running water in their house? : Yes Equipment in use: : None Other Equipment comments: : HE STATES HE HAS ACCESS TO ANY DME HE NEEDS Mental health screen: : No mental health history Psychosocial status: : Independent adult (18-64) Abuse/Neglect: : Alcohol use - History of Resources / Services in place: : None DCP Re-evaluation QUESTION: ANSWER Would patient like to participate in any Care Coordination programs (if applicable): : Not applicable PATIENT: RAUL CALEDRON ENCOUNTER: [id number] MEDICAL RECORD#: [id number] ADMISSION DATE: 12/20/2020 DISCHARGE DATE: 12/30/2020 ATTENDING MD: ELIZABETH FAULKNER : AGE: 55 MARITAL STATUS: S DC PLAN ID: [id number] FACILITY: [facility] PRINTED ON: 12/30/20 18:14 CT All edits/amendments must be made on the electronic document DICTATION DATE: 12/30/201813 TETRYL BLENDER OPERATOR: CHIARA 12/30/201813 RPT#: [id number] DC DATE:12/30/20 STATUS: DIS IN [facility] [address] [place] [address] END OF REPORT
--- NOTE | 2021-01-01 17:21 | MORECARE ---
CASE MANAGEMENT DISCHARGE SUMMARY PATIENT: RAUL CALDERON UNIT: [id number] ADM DATE: 12/20/20 AGE: 55 : 67 SEX: M ROOM/BED: D.2205 AUTHOR: HILTON,DOC PHYSICIAN: REFERRING PHYSICIAN: TEJINDER CURRY MD DATE OF SERVICE: 01/01/21 Case Management Discharge Planning Summary COMMENTS ENTERED DATE: 12/30/20 15:43 CT COMMENT TYPE: Discharge Planning REVIEWER: Ayleen Castillo Spoke to patient's daughters (Stephenie [phone] & Cynthia [phone]) to discuss their fathers options for rehab. They would like him to go to inpatient rehab here at [facility]. Patient is agreeable to this. ANNA signed and IMM also signed. He has been accepted and he will be going to room 1115. CM to follow and assist as needed ENTERED DATE: 12/29/20 14:30 CT COMMENT TYPE: Discharge Planning REVIEWER: Ayleen Castillo CM spoke with Nacho dumont brother ([phone]) to discuss his discharge options. He stated that his daughters are on their way down from out of state and will be here this evening or tomorrow. He would like them to be involved with this decision. He stated that he would call me tomorrow and let me know what they decide. We discussed all levels of care. ENTERED DATE: 12/26/20 14:48 CT COMMENT TYPE: Discharge Planning REVIEWER: Ayleen Castillo CM met with patient to complete initial dc planning assessment. CM educated patient on the CM role and verbal consent given by patient to complete assessment. Patient lives at home, by himself where he states he is independent with his care. At discharge patient plans to return home and feels this is a safe discharge. 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 I am unsure on his ability to take care of himself in the current state he is in. He did not want rehab or home health. He did not think he needed it. CM discussed availability of home health, rehab services, and medical equipment. He does not use any DME, but said that he could get whatever DME he might needs. Patient denied known discharge needs at this time. CM will continue to follow and will assist as needed with dc plans/needs. DCP REVIEW SUMMARY ANTICIPATED D/C DATE: EXPECTED LOS : CASE STATUS: DCP Initiated INITIAL REVIEW: 12/20/2020 INITIAL REVIEWER: Ayleen Castillo FINAL DISCHARGE DISPOSITION: : FINAL REVIEWER: FINAL REVIEW DATE: DCP Focus Questions & Answers DCP Screen QUESTION: ANSWER High Risk Factors: : Abuse or neglect in the pre-admission environment DCP Evaluation QUESTION: ANSWER Family / Caregiver's ability to cope with chronic illness: : c. Inadequate (Enables pt. to make bad choices, cannot meet pt's. needs, difficult family dynamics) Patient's ability to cope with chronic illness : a. Adequate (0-3 ED visits in 6 mos., adequate financial resources, attends scheduled appts.) Patient's current cognitive status: : *Oriented to person, place, situation, time and present Physical Status: : Independent with ADL's Functional screen assessment: : Noticeable poor ADL management Does the patient have the ability to pay for or attain post discharge needs / services? : Yes Alternate discharge plan (if recommended plan not agreed upon by patient and/or caregiver): : UNSURE WHAT HIS DC PLAN SHOULD BE Living Arrangements: : Home Alone with Support Is there a likelihood that the patient will require additional services to return to the preadmission environment? : Yes Functional screen comments: : UNSURE IF HE WILL BE ABLE TO CARE FOR HIMSELF Living arrangements comments: : LIVES ALONE HAS A BROTHER Baseline cognitive status: : *Oriented to person, place, situation, time and present Patient with capacity for self-care or can be cared for in same environment as prior to hospitalization? : No Facility / Agency name and contact information from Question 3 (if applicable): : DR LUCAS ( PCP) Comments: : HAS A BROTHER AND AN AUNT Medication Management: : Patient states can afford medications Pharmacy name(s): : [facility] [place] Planned post hospital services available for patient? : No Does Patient have transportation to get home and to follow-up medical appointments when discharged from the hospital? : Yes Would patient like to participate in any Care Coordination programs (if applicable): : Not applicable Comments: : HE DRIVES AND HIS BROTHER WILL DRIVE HIM HOME Does the patient have electricity at home? : Yes Does the patient have running water in their house? : Yes Equipment in use: : None Other Equipment comments: : HE STATES HE HAS ACCESS TO ANY DME HE NEEDS Mental health screen: : No mental health history Psychosocial status: : Independent adult (18-64) Abuse/Neglect: : Alcohol use - History of Resources / Services in place: : None DCP Re-evaluation QUESTION: ANSWER Would patient like to participate in any Care Coordination programs (if applicable): : Not applicable PATIENT: RAUL CALDERON ENCOUNTER: [id number] MEDICAL RECORD#: [id number] ADMISSION DATE: 12/20/2020 DISCHARGE DATE: 12/30/2020 ATTENDING MD: ELIZABETH FAULKNER : AGE: 55 MARITAL STATUS: S DC PLAN ID: [id number] FACILITY: [facility] PRINTED ON: 01/01/21 17:20 CT All edits/amendments must be made on the electronic document DICTATION DATE: 01/01/211719 PEST CONTROL WORKER HELPER: CHIARA 01/01/211719 RPT#: [id number] DC DATE:12/30/20 STATUS: DIS IN [facility] [address] [place] [address] END OF REPORT
== END 2020-12-30 18:09 | DRG 432 ==
LOC: D.ER 12:16 → D.MS 16:02
PROVIDERS: Emergency Medicine; Family Medicine; Radiology Vascular & Interventional Radiology; Specialist; ADMIT Emergency Medicine; ATTEND Emergency Medicine
DX: K70.31 Alcoholic cirrhosis of liver with ascites (principal); E43 Unspecified severe protein-calorie malnutrition; E87.1 Hypo-osmolality and hyponatremia; E72.20 Disorder of urea cycle metabolism, unspecified; F10.20 Alcohol dependence, uncomplicated; E87.6 Hypokalemia; D64.9 Anemia, unspecified; Z72.0 Tobacco use; Z68.27 Body mass index [BMI] 27.0-27.9, adult

== ENCOUNTER 2020-12-30 18:10 | Inpatient (IN) | payer MEDICARE ==
[~2020-12-30] VITALS: Ht 180.3 cm; Wt 73.9 kg
[~2020-12-30 18:10] MED LIST changes: +ALBUTEROL2.5 MG/3 M UPD; +LIBRIUM25 MG PO; +MIRALAX17 GM PO; +MUCINEX600 MG PO; +PROTONIX40 MG PO; +TESSALON PERLE100 MG PO; +XIFAXAN550 MG PO; +XOPENEX 1.1.25 MG/3 UPD
[2020-12-30 21:18] VITALS: BP 92/64
[2020-12-31 01:12] VITALS: BP 92/64; BMI 22.7
--- NOTE | 2020-12-31 06:42 | NUR ---
0100 PT VOIDED IN HIS DRINKING CUP. HE REPORTS HE WAS UNABLE TO USE THE URINAL BECAUSE HE IS TOO WEAK. 0300 PT URINATED IN THE BED. THE OBSTETRICIAN AND GYNAECOLOGISTNICHOLE DID A LINEN CHANGE AND CLEANED HIM UP. 0500 ATTEMPTED TO GET PTS SIGNATURE ON HIS ADMISSION FORMS. HE TRIED FOR 5 MINUTES TO SIGN HIS NAME ON 1 LINE AND WAS UNABLE TO DUE TO WEAKNESS. HE STATES HIS DAUGHTER SARTHAK LIMON IS COMING TODAY AND WILL SIGN THE PAPERWORK FOR HIM. 0630 PT EATING SNACKS. REFUSED RT NEB TREATMENT.
[2020-12-31 06:50] LABS: BASOPHILS 1.1 % (0-2); EOSINOPHILS 4.8 % (0-7); HEMATOCRIT 32.9 % (42.0-54.0); HEMOGLOBIN 11.4 g/dL (13.5-17.5); IMMATURE GRANULOCYTES 0.7 % (0-5); LYMPHOCYTE ABS# 0.98 10x3/uL (1.32-3.57); LYMPHOCYTES 21.4 % (15-50); MCH 33.2 pg (26.0-34.0); MCHC 34.7 g/dL (31.0-37.0); MCV 95.9 fL (80.0-100.0); MEAN PLATELET VOLUME 9.8 fL (7.4-10.4); MONOCYTES 15.9 % (2-11); NEUTROPHIL ABS# 2.58 10x3/uL (1.78-5.38); NEUTROPHILS 56.1 % (40-80); PLATELET COUNT 94 10x3/uL (130-400); RBC 3.43 10x6/uL (4.20-6.10); RDW 14.5 % (11.5-14.5); WBC 4.6 10x3/uL (4.8-10.8)
[2020-12-31 07:28] LABS: CALC OSMOLALITY 253 mosm/kg (275-300); CALCIUM 8.5 mg/dL (8.5-10.1); CARBON DIOXIDE 23.4 mmol/L (21.0-32.0); CHLORIDE - SERUM 96 mmol/L (98-107); CREATININE - SERUM 0.9 mg/dL (0.6-1.3); GLUCOSE 85 mg/dL (74-106); POTASSIUM - SERUM 4.6 mmol/L (3.5-5.1); SODIUM 127 mmol/L (136-145); UREA NITROGEN 12 mg/dL (7-18); eGFR NON AFRICAN AMERICAN > 90 mL/min (90-120)
[2020-12-31 10:19] VITALS: BP 99/63
--- NOTE | 2020-12-31 12:06 | NUR ---
LAYING IN BED WATCHING TV. HAS BEEN WORKING WITH THERAPY ALL MORNING. IS SLOW TO ANSWER QUESTIONS OR FOLLOW COMMANDS. DENIES PAIN. ABD DISTENDED. IS THIN AND FRAIL. CALL LIGHT IN REACH
--- NOTE | 2020-12-31 15:03 | NUR ---
PT NON COMPLIANT WITH RESPIRATORY TX. RESP THERAPIST REPORTED PT TOOK OFF UPDRAFT MASK TO EAT [employer]OD BROUGHT BY HIS FAMILY. THIS MORNING PT REFUSED UPDRAFT AND WANTED R.T. TO COME BACK LATER WHEN HE WAS READY......
[2020-12-31 19:00] VITALS: BP 92/54
--- NOTE | 2020-12-31 19:00 | NUR ---
BEDSIDE REPORT COMPLETE. RECEIVED PT LYING IN BED EYES CLOSED RESTING. EASILY AROUSED WITH VERBAL STIMULI. DENIES ANY NEEDS OR PAIN. NO IV OR OXYGEN NOTED. ABDOMINAL DISTENTION NOTED. NO DISTRESS NOTED. CALL LIGHT AND WATER WITHIN REACH. FALL PRECAUTIONS IN PLACE. CPOC
--- NOTE | 2021-01-01 01:08 | NUR ---
PT LYING IN BED ON LEFT SIDE EYES CLOSED RESTING. RR EVEN AND UNLABORED. CALL LIGHT WITHIN REACH
--- NOTE | 2021-01-01 04:12 | NUR ---
PT LYING IN BED ON RIGHT SIDE EYES CLOSED RESTING. NO DISTRESS NOTED. CALL LIGHT WITHIN REACH
[2021-01-01 08:00] VITALS: Ht 180.3 cm; Wt 73.9 kg
[2021-01-01 11:46] VITALS: BP 85/57
--- NOTE | 2021-01-01 15:59 | NUR ---
PT INSISTED ON GETTING UP TO TOILET AND WAS ON SIDE OF BED. FAMILY IN ROOM TRYING TO HELP HIM GET UP.... MAX ASST X 2-3 TO GET TO WC, TRANSFERED TO TOILET. HE CAN NOT BEAR HIS OWN WT OR STAND UP. WAS CONTENENT OF BOWEL IN TOILET. HAS BEEN INCONT OF BOWEL IN BED SEVERAL TIMES. HE REFUSED TO TRY TO USE BEDPAN. HE REFUSED TO WIPE HIMSELF AFTER BM. HE DOES NOT APPEAR TO BE TRYING TO HELP HIMSELF.
--- NOTE | 2021-01-01 16:11 | NUR ---
SITTING ON SIDE OF BED TALKING TO VISITOR. HAS BEEN USING STERNAL PRECAUTIONS WHEN STANDING UP TO WALK TO BATHROOM. IS STRONGER AND HAS BETTER BALANCE THAN ON ADMISSION. NO S/S INFECTION NOTED TO CHEST, ABD OR LEGS. CALL LIGHT IN REACH
[2021-01-01 20:30] VITALS: BP 83/43
--- NOTE | 2021-01-01 20:46 | NUR ---
BEDSIDE REPORT COMPLETED. PT SITTING UP IN BED AWAKE. HS MEDS ADMININSTERED ONE AT A TIME WHOLE. PT SLOW TO RESPOND WELL WITH MOVEMENTS. PT IS NON COMPLIANT WITH THICKENED LIQUIDS, OBSERVED PT DRINKING WATER FROM CUP NOT THICKENED PT HAS FOUND ASKING FOR CUP OF ICE AND ALLOWING ICE TO MET HE IS ABLE TO DRINK THIN ICE WATER. BP 83/43 HR 105 PT IS ASYMPTOMATIC. ELEVATED LEGS. PT DENIES ANY PAIN OR NEEDS. NO IV OR OXYGEN NOTED. NO DISTRESS. CALL LIGHT AND WATER WITHIN REACH. FALL PRECAUTIONS IN PLACE. CPOC
--- NOTE | 2021-01-02 03:05 | NUR ---
PT LYING IN BED ON RIGHT SIDE EYES CLOSED RESTING. RR EVEN AND UNLABORED. CALL LIGHT WITHIN REACH. BRUNILDA ALARM ON.
--- NOTE | 2021-01-02 05:28 | NUR ---
INCONTINENCE CARE PROVIDED. LARGE URINE INCONTINENCY. PARTIAL BEDBATH AND COMPLETE LINEN CHANGE DONE. PLACED BRIEF AND GOWN ON PT. DENIES ANY OTHER NEEDS OR PAIN. CALL LIGHT AND NECTAR THICK WATER WITHIN REACH. BRUNILDA ALARM ON. CPOC
[2021-01-02 08:00] VITALS: BP 84/55
[2021-01-02 08:19] LABS: BASOPHILS 1.1 % (0-2); EOSINOPHILS 3.1 % (0-7); HEMATOCRIT 33.1 % (42.0-54.0); HEMOGLOBIN 11.5 g/dL (13.5-17.5); IMMATURE GRANULOCYTES 0.9 % (0-5); LYMPHOCYTES 20.4 % (15-50); MCH 33.1 pg (26.0-34.0); MCHC 34.7 g/dL (31.0-37.0); MCV 95.4 fL (80.0-100.0); MEAN PLATELET VOLUME 10.2 fL (7.4-10.4); MONOCYTES 17.2 % (2-11); NEUTROPHIL ABS# 3.09 10x3/uL (1.78-5.38); NEUTROPHILS 57.3 % (40-80); PLATELET COUNT 96 10x3/uL (130-400); RBC 3.47 10x6/uL (4.20-6.10); RDW 14.2 % (11.5-14.5); WBC 5.4 10x3/uL (4.8-10.8)
[2021-01-02 08:24] LABS: CALC OSMOLALITY 257 mosm/kg (275-300); CALCIUM 8.3 mg/dL (8.5-10.1); CARBON DIOXIDE 23.7 mmol/L (21.0-32.0); CHLORIDE - SERUM 96 mmol/L (98-107); GLUCOSE 91 mg/dL (74-106); SODIUM 128 mmol/L (136-145); UREA NITROGEN 15 mg/dL (7-18); eGFR NON AFRICAN AMERICAN 83 mL/min (90-120)
--- NOTE | 2021-01-02 10:44 | NUR ---
SITTING UP IN BED WATCHING TV. MOVEMENTS AND ANSWERS SLOW. IS CONFUSED. REQUIRES PROMPTING TO COOPERATE WITH SIMPLE REQUESTS LIKE ROLLING OVER. ABD STILL DISTENDED. CALL LIGHT IN REACH
--- NOTE | 2021-01-02 19:30 | NUR ---
AWAKE AND SOMEWHAT LETHARGIC. SPEAKS SLOWLY. RESPIRAIONS UNLABORED. ABDOMEN DISTENDED WITH ACTIVE BOEL SOUNDS. NO NEEDS VOICED. CALL LIGHT IN REACH.
[2021-01-02 19:56] VITALS: BP 90/59
--- NOTE | 2021-01-03 05:18 | NUR ---
QUIET HOURS. NO ACUTE CHANGES IN CONDITION THIS SHIFT. RESTING IN BED WITH NO DISTRESS NOTED. ABDOMEN REMAINS DISTENDED.
[2021-01-03 07:45] VITALS: BP 90/60
--- NOTE | 2021-01-03 08:00 | NUR ---
SHIFT ASSMT COMPLETED.CL IN REACH.VERY SLOW TO RESPOND.AFFECT FLAT.
--- NOTE | 2021-01-03 12:00 | NUR ---
EATING LUNCH SITTING UP IN WC.ALARM ON.
--- NOTE | 2021-01-03 16:00 | NUR ---
RESTING QUIETLY IN BED.
--- NOTE | 2021-01-03 20:00 | NUR ---
AWAKE LETHARGIC. SLOW TO SPEAK , RESPIRAITONS UNLABORED. ABDOMEN DISTENDED. NO ACUTE DISTRESS NOTED. CALL LIGHT IN REACH.
[2021-01-03 21:22] VITALS: BP 87/55
--- NOTE | 2021-01-04 05:24 | NUR ---
QUIET HOURS. NO ACUTE CHANGES IN CONDITION THIS SHIFT. RESTING IN BED WITH NO DISTRESS NOTED.
[2021-01-04 07:47] LABS: BASOPHILS 0.9 % (0-2); EOSINOPHILS 4.8 % (0-7); HEMATOCRIT 31.3 % (42.0-54.0); HEMOGLOBIN 11.1 g/dL (13.5-17.5); IMMATURE GRANULOCYTES 0.9 % (0-5); LYMPHOCYTE ABS# 0.88 10x3/uL (1.32-3.57); LYMPHOCYTES 16.4 % (15-50); MCH 33.4 pg (26.0-34.0); MCHC 35.5 g/dL (31.0-37.0); MCV 94.3 fL (80.0-100.0); MEAN PLATELET VOLUME 10.2 fL (7.4-10.4); MONOCYTES 17.5 % (2-11); NEUTROPHILS 59.5 % (40-80); PLATELET COUNT 85 10x3/uL (130-400); RBC 3.32 10x6/uL (4.20-6.10); RDW 13.8 % (11.5-14.5); WBC 5.4 10x3/uL (4.8-10.8)
[2021-01-04 07:59] LABS: CALC OSMOLALITY 248 mosm/kg (275-300); CALCIUM 8.2 mg/dL (8.5-10.1); CARBON DIOXIDE 23.6 mmol/L (21.0-32.0); CHLORIDE - SERUM 92 mmol/L (98-107); CREATININE - SERUM 0.9 mg/dL (0.6-1.3); GLUCOSE 83 mg/dL (74-106); POTASSIUM - SERUM 4.3 mmol/L (3.5-5.1); SODIUM 123 mmol/L (136-145); UREA NITROGEN 18 mg/dL (7-18); eGFR NON AFRICAN AMERICAN > 90 mL/min (90-120)
[2021-01-04 11:25] VITALS: BP 86/57
[2021-01-04 14:01] LABS: PLATELET ESTIMATE DECREASED
--- NOTE | 2021-01-04 14:01 | NUR ---
Nutrition Re-Assessment Diet: Cardiac [place] thicken liquids PO intake: ~47% average x last 3 meals. He states that his appetite is "okay." He wants cereal. States that he would drink Chocolate Boost if I add it to his trays. Last BM: 01/03/21 Wt: 163# (01/01/21) Meds noted: NaCl, protonix, lasix, K-dur, lactulose Labs noted: Na 123(L) Estimated nutrition needs and nutrition diagnosis remain unchanged from initial nutrition assessment at this time. Patient is progressing moderately towards meeting nutrition goals at this time. Recommendations/Interventions: -Recommend continue current diet/or per SOCIAL DIRECTOR recommendations. -Will add Chocolate BOOST TID -RD will follow-up 01/10/21.
[2021-01-04 14:03] LABS: ROULEAUX OCC
--- NOTE | 2021-01-04 16:49 | NUR ---
care team meeting: patient daughter and uncle attended the meeting.their questions and concerns were addressed. the idea of patient discharging to a SNF was brought up. will meet again next meeting. will continue to follow with patient.
--- NOTE | 2021-01-04 19:00 | NUR ---
BEDSIDE REPORT COMPLETE. RECEIVED PT LYING IN BED EYES CLOSED RESTING. EASILY AROUSED WITH VERBAL STIMULI. DENIES ANY NEEDS OR PAIN. DISTENDED ABDOMEN NOTED. PT IS JAUNDICED WITH YELLOW SCLERA. NO IV OR OXYGEN NOTED. CALL LIGHT AND NECTAR THICK WATER WITHIN REACH. FALL PRECAUTIONS IN PLACE. CPOC
[2021-01-04 21:27] VITALS: BP 89/55
--- NOTE | 2021-01-05 00:07 | NUR ---
PT LYING IN BED [place] EYES CLOSED RESTING. RR EVEN AND UNLABORED. CALL LIGHT WITHIN REACH. BRUNILDA ALARM ON
--- NOTE | 2021-01-05 03:22 | NUR ---
PT LYING IN BED ON RIGHT SIDE EYES CLOSED RESTING. RR EVEN AND UNLABORED. CALL LIGHT WITHIN REACH
--- NOTE | 2021-01-05 07:32 | NUR ---
PT RESTING IN BED WITH EYES OPEN CALL LIGHT IN REACH WILL MONITER
[2021-01-05 08:10] VITALS: BP 95/54
--- NOTE | 2021-01-05 18:55 | NUR ---
BEDSIDE REPORT COMPLETE. RECEIVED PT LYING IN BED EYES CLOSED RESTING. RR EVEN AND UNLABORED. EASILY AROUSED WITH STIMULI. DENIES ANY NEEDS OR PAIN. ABDOMINAL DISTENTION NOTED. PT IS JAUNDICE WITH YELLOW SCLERA. CALL LIGHT WITHIN REACH. BRUNILDA ALARM ON. CPOC
[2021-01-05 19:55] VITALS: BP 98/55
--- NOTE | 2021-01-06 06:41 | NUR ---
PT LYING IN BED ON LEFT SIDE WATCHING TV. DENIES ANY NEEDS OR PAIN. NO DISTRESS NOTED. CALL LIGHT AND NECTAR THICKENED WATER WITHIN REACH. BRUNILDA ALARM ON.
[2021-01-06 07:11] LABS: BASOPHILS 0.9 % (0-2); CALC OSMOLALITY 252 mosm/kg (275-300); CALCIUM 8.6 mg/dL (8.5-10.1); CARBON DIOXIDE 24.1 mmol/L (21.0-32.0); CHLORIDE - SERUM 95 mmol/L (98-107); CREATININE - SERUM 0.8 mg/dL (0.6-1.3); EOSINOPHILS 5.8 % (0-7); GLUCOSE 85 mg/dL (74-106); HEMATOCRIT 30.7 % (42.0-54.0); HEMOGLOBIN 10.9 g/dL (13.5-17.5); IMMATURE GRANULOCYTES 0.4 % (0-5); LYMPHOCYTE ABS# 0.91 10x3/uL (1.32-3.57); LYMPHOCYTES 19.7 % (15-50); MCH 33.4 pg (26.0-34.0); MCHC 35.5 g/dL (31.0-37.0); MCV 94.2 fL (80.0-100.0); MEAN PLATELET VOLUME 10.4 fL (7.4-10.4); MONOCYTES 18.2 % (2-11); NEUTROPHIL ABS# 2.54 10x3/uL (1.78-5.38); PLATELET COUNT 83 10x3/uL (130-400); POTASSIUM - SERUM 4.3 mmol/L (3.5-5.1); RBC 3.26 10x6/uL (4.20-6.10); RDW 13.5 % (11.5-14.5); SODIUM 126 mmol/L (136-145); UREA NITROGEN 14 mg/dL (7-18); WBC 4.6 10x3/uL (4.8-10.8); eGFR NON AFRICAN AMERICAN > 90 mL/min (90-120)
[2021-01-06 08:00] VITALS: BP 95/61
--- NOTE | 2021-01-06 09:30 | NUR ---
DR PATRICIO ABREU. HE IS AWARE OF OF PT'S LAB VALUES INCLUDING NA+ WHICH HAS BEEN RUNNING LOW.
--- NOTE | 2021-01-06 19:31 | NUR ---
AWAKE AND ALERT. RESPIRATIONS UNLABORED. ASSISTED TO BATHROOM. MOD ASSIST X 2 STAFF MEMEBERS. CALL LIGHT IN REACH.
[2021-01-06 20:18] VITALS: BP 84/51
--- NOTE | 2021-01-07 05:14 | NUR ---
RESTLESS HOURS. UP 6 TIMES TO BATHROOM TO VOID. NO BM THIS SHIFT. PASSING GAS. ABDOMEN REMAINS DISTENDED.
--- NOTE | 2021-01-07 08:00 | NUR ---
SHIFT ASSMT COMPLETED.CL IN REACH.UP OOB TO BATHROOM AND BACK TO WC.BREAKFAST GIVEN.
[2021-01-07 09:32] VITALS: BP 90/53
--- NOTE | 2021-01-07 12:00 | NUR ---
UP OOB TO WC.LUNCH GIVEN.
[2021-01-07 19:12] VITALS: BP 105/62
--- NOTE | 2021-01-07 19:21 | NUR ---
AWAKE AND ALERT. RESTING IN BED WITH RESPIRATIONS UNLABORED. NO DISTRESS NOTED. CALL LIGHT IN REACH.
--- NOTE | 2021-01-08 05:21 | NUR ---
RESTING IN BED BUT CONTINUES TO BE CONFUSED. HAS CALLED NURSE SEVERAL TIMES ASKING IF "A MAN CAN HAVE A BABY" ATTEMPTED TO REORIENT HIM. HE HAD 2 VERY LARGE INCONTINENT DIARRHEA STOOLS THIS SHIFT.
[2021-01-08 08:00] VITALS: BP 83/48
--- NOTE | 2021-01-08 08:00 | NUR ---
INCONTINENT OF URINE.UP OOB TO BATHROOM,CLEANED AND RETURNED TO .SITTING UP FOR BREAKFAST.
--- NOTE | 2021-01-08 12:00 | NUR ---
UP OOB TO WC FOR LUNCH.
[2021-01-08 19:00] VITALS: BP 93/56
--- NOTE | 2021-01-08 19:38 | NUR ---
AWAKE AND ALERT. RESTING IN BED WITH RESPIRATIONS UNLABORED. NO NEEDS VOICED. NO DISTRESS NOTED.
--- NOTE | 2021-01-09 05:28 | NUR ---
QUIET HOURS. NO ACUTE CHANGES IN CONDITION THIS SHIFT. RESTING IN BED WITH NO DISTRESS NOTED.
[2021-01-09 08:09] VITALS: BP 90/56
[2021-01-09 08:36] LABS: BASOPHILS 0.4 % (0-2); EOSINOPHILS 1.6 % (0-7); HEMATOCRIT 35.4 % (42.0-54.0); HEMOGLOBIN 12.4 g/dL (13.5-17.5); IMMATURE GRANULOCYTES 0.2 % (0-5); LYMPHOCYTE ABS# 0.76 10x3/uL (1.32-3.57); MCH 33.5 pg (26.0-34.0); MCV 95.7 fL (80.0-100.0); MEAN PLATELET VOLUME 10.7 fL (7.4-10.4); MONOCYTES 10.5 % (2-11); NEUTROPHIL ABS# 7.53 10x3/uL (1.78-5.38); NEUTROPHILS 79.3 % (40-80); PLATELET COUNT 82 10x3/uL (130-400); RDW 13.6 % (11.5-14.5); WBC 9.5 10x3/uL (4.8-10.8)
[2021-01-09 08:42] LABS: CALC OSMOLALITY 257 mosm/kg (275-300); CALCIUM 8.8 mg/dL (8.5-10.1); CARBON DIOXIDE 25.1 mmol/L (21.0-32.0); CHLORIDE - SERUM 95 mmol/L (98-107); GLUCOSE 105 mg/dL (74-106); SODIUM 128 mmol/L (136-145); UREA NITROGEN 14 mg/dL (7-18); eGFR NON AFRICAN AMERICAN 83 mL/min (90-120)
[2021-01-09 13:33] LABS: PLATELET ESTIMATE DECREASED
[2021-01-09 13:34] LABS: ANISOCYTOSIS OCC; ROULEAUX OCC
--- NOTE | 2021-01-09 18:50 | NUR ---
BEDSIDE REPORT COMPLETE. RECEIVED PT LYING IN BED ON RIGHT SIDE EYES CLOSED RESTING. EASILY AROUSED WITH STIMULI. DENIES ANY NEEDS OR PAIN. ALERT AND ORIENTED X2. NO IV OR OXYGEN NOTED. YELLOWING OF SKIN NOTED. ABDOMINAL DISTENTION. LEFT ELBOW HEALING SORES. CALL LIGHT AND NECTAR THICK WATER WITHIN REACH. BRUNILDA ALARM ON. CPOC
[2021-01-09 21:44] VITALS: BP 75/48
--- NOTE | 2021-01-10 02:24 | NUR ---
PT LYING IN BED WATCHING TV. DENIES ANY NEEDS OR PAIN. TOILETING OFFERED PT DENIES NEED. CALL LIGHT WITHIN REACH. BRUNILDA ALARM ON
--- NOTE | 2021-01-10 06:08 | NUR ---
PT LYING IN BED AWAKE. DENIES ANY NEEDS OR PAIN. TOILETING OFFERED PT DENIES NEED. NO ACUTE CHANGES IN CONDITION NOTED THIS SHIFT. CALL LIGHT WITHIN REACH. BRUNILDA ALARM ON.
[2021-01-10 08:00] VITALS: BP 83/51
--- NOTE | 2021-01-10 15:07 | NUR ---
IN WC SLOWLY ROLLING IN SANDS. HE IS WEAK AND FRAIL. SLOW MOVING, SLOW TALKING AND CONFUSED. STILL HAS ABD DISTENSION.
--- NOTE | 2021-01-10 16:07 | NUR ---
Nutrition Follow-up: Diet: Cardiac [place] Thickened Liquids + Boost TID PO intake: ~26% average x last 9 meals Last BM: 01/10/21 Wt: 163# (01/01/21) Meds noted: lasix, k-dur, lactulose Labs noted: Na 128(L) Recommend continue current diet/or per TELEVISION SERVICE ENGINEER recommendations. Continue oral nutrition supplement TID. Recommend encouraged PO intake at meal times. MD may consider adding appetite stimulant as medically feasible. RD will follow-up 01/13/21.
--- NOTE | 2021-01-10 18:50 | NUR ---
BEDSIDE REPORT COMPLETED. RECEIVED PT LYING IN BED. ALERT AND ORIENTED X2. DENIES ANY NEEDS OR PAIN. NO DISTRESS NOTED. CALL LIGHT AND WATER WITHIN REACH. BRUNILDA ALARM ON. CPOC
[2021-01-10 19:00] VITALS: BP 79/52
--- NOTE | 2021-01-10 23:20 | NUR ---
PT LYING IN BED ON RIGHT SIDE EYES CLOSED RESTING. RR EVEN AND UNLABORED. CALL LIGHT WITHIN REACH. BRUNILDA ALARM ON
--- NOTE | 2021-01-11 03:09 | NUR ---
PT LYING IN BED ON LEFT SIDE EYES CLOSED RESTING. RR EVEN AND UNLABORED. BRUNILDA ALARM ON
[2021-01-11 07:29] LABS: BASOPHILS 0.5 % (0-2); EOSINOPHILS 5.5 % (0-7); HEMATOCRIT 30.4 % (42.0-54.0); HEMOGLOBIN 10.6 g/dL (13.5-17.5); IMMATURE GRANULOCYTES 0.4 % (0-5); LYMPHOCYTE ABS# 0.87 10x3/uL (1.32-3.57); LYMPHOCYTES 15.8 % (15-50); MCH 32.8 pg (26.0-34.0); MCHC 34.9 g/dL (31.0-37.0); MCV 94.1 fL (80.0-100.0); MEAN PLATELET VOLUME 10.4 fL (7.4-10.4); MONOCYTES 12.2 % (2-11); NEUTROPHIL ABS# 3.61 10x3/uL (1.78-5.38); NEUTROPHILS 65.6 % (40-80); PLATELET COUNT 74 10x3/uL (130-400); RBC 3.23 10x6/uL (4.20-6.10); RDW 13.3 % (11.5-14.5)
[2021-01-11 07:34] LABS: WBC 5.5 10x3/uL (4.8-10.8)
[2021-01-11 07:54] VITALS: BP 90/58
--- NOTE | 2021-01-11 08:00 | NUR ---
SHIFT ASSMT COMPLETED.
[2021-01-11 08:02] LABS: CALC OSMOLALITY 258 mosm/kg (275-300); CALCIUM 8.4 mg/dL (8.5-10.1); CARBON DIOXIDE 25.5 mmol/L (21.0-32.0); CHLORIDE - SERUM 96 mmol/L (98-107); CREATININE - SERUM 0.8 mg/dL (0.6-1.3); GLUCOSE 79 mg/dL (74-106); SODIUM 129 mmol/L (136-145); UREA NITROGEN 14 mg/dL (7-18); eGFR NON AFRICAN AMERICAN > 90 mL/min (90-120)
--- NOTE | 2021-01-11 12:00 | NUR ---
SITTING UP EATING LUNCH.
--- NOTE | 2021-01-11 16:34 | NUR ---
CARE TEAM MEETING: PATIENT BROTHER ATTENDED THE MEETING AND I ALSO SPOKE WITH DAUGHTER LETA. PATIENT IS SLOWLY PROGRESSING IN THERAPY. PATIENT BROTHER NAD DAUGHTER WOULD LIKE A REFFERRAL TO [facility] FOR POSSIBLE ADMISSION. WILL CONTINUE TO FOLLOW WITH PATIENT.
--- NOTE | 2021-01-11 19:49 | NUR ---
AWAKE AND ALERT. ASSISTED TO BATHROOM AND PATIENT DOES NOT MOVE HIS FEET WITHOUT A LOT OF CUEING AND PROMPTING AND THEN ONLY MOVES FEET THE SLIGHTEST BIT. WILL NOT FOLLOW INSTRUCTIONS TO STAND UP STRAIT. GRABS AT TABLES AND DOESNT SEEM TO UNDERSTAND TO LET GO OF THESE WHEN PROMPTED. CANT SEEM TO UNDERSTAND TO TURN AROUND ONCE IN STANDING POSITION. IS MAX X 2 STAFF ASSIST FOR TRANSFERS. ASSISTED BACK TO BED. RESPIRATIONS UNLABORED. SKIN JAUNDICE. CALL LIGHT IN REACH.
[2021-01-11 21:29] VITALS: BP 89/65
--- NOTE | 2021-01-12 04:59 | NUR ---
QUIET HOURS. NO ACUTE CHANGES IN CONDITION THIS SHIFT. RESTING IN BED WITH NO DISTRESS NOTED.
[2021-01-12 07:49] VITALS: BP 87/57
--- NOTE | 2021-01-12 19:00 | RHP ---
PATIENT: RAUL CALDERON MEDICAL RECORD: [id number] ACCOUNT: [id number] [id number] ADMISSION DATE: 12/30/20 REHABILITATION HISTORY AND PHYSICAL EXAMINATION POST ADMISSION PHYSICIAN EXAMINATION ADMITTING DIAGNOSIS: Alcohol myopathy. HISTORY OF PRESENT ILLNESS: The patient is a 55-year-old gentleman who was admitted on med on-call. He has got history of liver cirrhosis. He has got a history of hernia repair, liver surgery and previous paracentesis. He was seen in the ED with complaints of bilateral lower extremity swelling, had increased edema over the previous several days. He had some mild abdominal distention and swelling. The patient was seen and evaluated by IR and also GI. He was admitted to the medical floor for treatment of cirrhosis, ascites, hypokalemia, hyponatremia, hyperbilirubinemia, hyperammonemia, normocytic anemia, pancytopenia. He was started on Aldactone and Lasix, electrolyte protocol, Zofran. He was on Dilaudid for pain. The patient was placed on lactulose. His platelet count was noted to be somewhat low. He was on scheduled Librium. Telemetry was placed on him. He was transferred over to the ICU. He was placed on Rocephin and Zithromax, was started on appropriate medications. His ammonia level has been up and down throughout his stay. IR is not planning on a TIPS. They feel that it is more of a risky outcome for this patient. He is a poor candidate for this. They recommended maximal medical management and paracentesis. Prior to this admission, he was completely independent with ADLs and living alone and drives himself. He is currently min-to-mod assist with ADLs, max assist with ambulation, only taking 4 steps with proximal muscle weakness. He will require inpatient therapy to get back to his prior level of functioning. We are monitoring his lab values, his cognition, medications adjustment, balance, and self-care deficits. These are all barriers to his discharge home at this time. COMORBIDITIES: Include cirrhosis of the liver, bilateral lower extremity edema, normocytic anemia, hyperbilirubinemia, ascites, pancytopenia, severe protein-calorie malnutrition, tachycardia. PAST MEDICAL HISTORY: Significant for cirrhosis. PAST SURGICAL HISTORY: Includes a hernia. He has had a liver shunt in the past, paracentesis. ALLERGIES: No known drug allergies. CURRENT MEDICATIONS: Include Protonix 40 mg daily, furosemide 40 mg b.i.d., Xopenex 1.25 mg t.i.d., polyethylene glycol 17 grams in 8 ounces of water daily, spironolactone 100 mg b.i.d., Xifaxan 550 b.i.d., potassium 20 mEq b.i.d., lactulose 60 mL t.i.d., guaifenesin 1200 mg b.i.d., Librium 10 mg b.i.d., Tessalon Perles 100 mg t.i.d., Ventolin updrafts as needed and MiraLax as needed. HABITS: Does have a strong history of alcohol use. FAMILY HISTORY: Noncontributory. SOCIAL HISTORY: The patient hopes to return back home and get back to his prior HISTORY AND PHYSICAL [id number] RAUL CALDERON level of functioning. REVIEW OF SYSTEMS: GENERAL: Does complain of weakness and fatigue. HEENT: Denies cold, cough or congestion. CARDIOVASCULAR: Denies any chest pain. PHYSICAL EXAMINATION: VITAL SIGNS: Stable, afebrile. GENERAL: A much older than stated age gentleman in no acute distress, alert upon exam. HEENT: Normocephalic and atraumatic. Mucosa moist. NECK: Supple. No lymphadenopathy. LUNGS: Clear in upper tracy. No wheezing or rales. HEART: Regular rate and rhythm. No murmurs, rubs or gallops. ABDOMEN: Noted to be protuberant and soft. Noted to have some ascites. EXTREMITIES: Does have peripheral edema. NEUROLOGIC: Does have diffuse weakness. LABORATORY DATA: White count is 4.6, H&H of 11 and 32 and platelet count is 94. Sodium 127, potassium 4.6, BUN and creatinine of 12 and 0.9, blood sugar is noted to be 85. ASSESSMENT: This is a 55-year-old gentleman admitted to the rehab with a working diagnosis of alcohol-induced myopathy. The patient has potential to make improvement. We instituted the following multidisciplinary therapies including, not limited to physical, occupational, respiratory, speech, nutritional services, prosthetics and orthotics. Given his complex medical condition and risks for more complications, rehabilitation services cannot be provided at a low level of care such as detention facility. PLAN: 1. Admit to [facility] for inpatient therapy to include the following disciplines; A. Physical therapy to improve gait, all transfer skills and bed mobility to a modified independent level. B. Occupational therapy to improve activities of daily living. C. Case management to help with discharge planning and placement options. D. Nutrition to assist with nutritional needs. E. Rehabilitation nursing to assist in monitoring the patient's underlying medical condition and to assist with any type of bowel or bladder management. 2. The patient's current medication and Medicare will be continued. 3. Will be placed on standard fall precautions. 4. Will continue on his lactulose. Follow his ammonia levels closely and I will see again in the a.m. either on Saturday or Saturday. TRANSINT:[id number] Voice Confirmation ID: [id number] DOCUMENT ID: [id number] GABINO notes whether there has been none or any medical/functional change since admission: - No change since preadmission screen. GABINO attests patient continues to be appropriate for IRF: HISTORY AND PHYSICAL [id number] RAUL CALDERON - Continues to be appropriate. TEJINDER CURRY MD at 1900 CC: [id number] DICTATION DATE: 12/31/20 0951 INVESTIGATION DIVISION CAPTAIN: 12/31/20 1212 ADM IN [facility] [address] [place] [address]
--- NOTE | 2021-01-12 19:15 | NUR ---
AWAKE AND RESTING IN BED WITH RESPIRATIONS UNLABORED. MUMBLES WHEN SPEAKING AT TIMES MAKING IT DIFFICULT TO UNDERSTAND WHAT HE IS SAYING. SKIN JAUNDICED. ABDOMEN SLIGHTLY DISTENDED. CALL LIGHT IN REACH.
--- NOTE | 2021-01-13 04:49 | NUR ---
QUIET HOURS. NO ACUTE CHANGES IN CONDITION THIS SHIFT. RESTING IN BED WITH NO DISTRESS NOTED. IN ROOM.
--- NOTE | 2021-01-13 04:50 | NUR ---
QUIET HOURS. NO ACUTE CHANGES IN CONDITION THIS SHIFT. RESTING IN BED WITH NO DISTRESS NOTED.
[2021-01-13 07:53] LABS: EOSINOPHILS 6.8 % (0-7); HEMATOCRIT 29.9 % (42.0-54.0); HEMOGLOBIN 10.6 g/dL (13.5-17.5); IMMATURE GRANULOCYTES 0.2 % (0-5); LYMPHOCYTE ABS# 1.03 10x3/uL (1.32-3.57); LYMPHOCYTES 25.2 % (15-50); MCHC 35.5 g/dL (31.0-37.0); MCV 93.1 fL (80.0-100.0); MEAN PLATELET VOLUME 9.8 fL (7.4-10.4); MONOCYTES 15.2 % (2-11); NEUTROPHIL ABS# 2.11 10x3/uL (1.78-5.38); NEUTROPHILS 51.6 % (40-80); PLATELET COUNT 79 10x3/uL (130-400); RBC 3.21 10x6/uL (4.20-6.10); WBC 4.1 10x3/uL (4.8-10.8)
[2021-01-13 07:58] LABS: CALC OSMOLALITY 260 mosm/kg (275-300); CALCIUM 8.4 mg/dL (8.5-10.1); CARBON DIOXIDE 24.8 mmol/L (21.0-32.0); CHLORIDE - SERUM 98 mmol/L (98-107); CREATININE - SERUM 0.9 mg/dL (0.6-1.3); GLUCOSE 87 mg/dL (74-106); POTASSIUM - SERUM 4.1 mmol/L (3.5-5.1); SODIUM 130 mmol/L (136-145); UREA NITROGEN 14 mg/dL (7-18); eGFR NON AFRICAN AMERICAN > 90 mL/min (90-120)
[2021-01-13 08:20] VITALS: BP 75/40
[2021-01-13 08:57] LABS: PLATELET ESTIMATE DECREASED
--- NOTE | 2021-01-13 10:58 | NUR ---
SPOKE WITH PATIENT THIS AM AND HE AGRESS TO SEND REFERRAL TO [facility] FOR POSSIBLE ADMISSION. REFERRAL HAS BEEN FAXED. WILL CONTINUE TO FOLLOW WITH PATIENT.
--- NOTE | 2021-01-13 11:57 | NUR ---
LAYING IN BED QUIETLY WATCHING TV. SPEECH IS SOFT AND MORE CLEAR TODAY. STILL CONFUSED. FEEDS SELF. IS THIN AND FRAIL. ABD DISTENDED. YELLOWISH TENT TO SKIN. CALL LIGHTIN REACH
--- NOTE | 2021-01-13 13:45 | NUR ---
NUTRITION FOLLOW UP: COMMENTS: Patient present with confusion. Eating lunch during visit. Patient has been drinking and tolerating chocolate Boost. Low PO intake for the past 3 meals DIET: AHA Cardiac Diet SUPPLEMENT: Chocolate Boost with Meals PO INTAKE: 33% avg for last 3 meals WEIGHT: 01/01-163 lbs BM: x 1 on 01/13 SIG MEDS: NaCl, Spironolactone, Lasix, KCl, Lactulose SIG LABS: Na-130(L), Ca-8.4(L) RECOMMENDATIONS: Continue AHA diet as tolerated Continue Stannards thick liquids per [employer] Continue chocolate Boost TID Encourage PO intake Assistance with meals as needed RD to follow up within 7 days
--- NOTE | 2021-01-13 18:47 | NUR ---
BEDSIDE REPORT COMPLETE. RECEIVED PT LYING IN BED. ALERT AND ORIENTED X2. REORIENTED TO TIME AND SITUATION. DENIES ANY PAIN OR NEEDS. NO DISTRESS NOTED. NO IV OR OXYGEN NOTED. SLOW TO RESPOND. CALL LIGHT AND THICKENED WATER WITHIN REACH. BRUNILDA ALARM ON. CPOC
[2021-01-13 20:24] VITALS: BP 138/57
--- NOTE | 2021-01-13 23:48 | NUR ---
PT LYING IN BED ON RIGHT SIDE EYES CLOSED RESTING. RR EVEN AND UNLABORED. BRUNILDA ALARM ON
--- NOTE | 2021-01-14 03:01 | NUR ---
PT LYING IN BED EYES CLOSED RESTING. RR EVEN AND UNLABORED. BRUNILDA ALARM ON
--- NOTE | 2021-01-14 05:19 | NUR ---
PT LYING IN BED AWAKE AND CONFUSED. PT STATES "I HAVE SOME BABY DEERS FOR SALE" REORIENTED PT TO PLACE, TIME, AND SITUATION. PT IS CLEAN AND DRY NO INCONTINENCY NOTED. CALL LIGHT WITHIN REACH. BRUNILDA ALARM ON
[2021-01-14 08:55] VITALS: BP 82/52
--- NOTE | 2021-01-14 09:39 | NUR ---
LAYING IN BED WATCHING TV. TAKES MEDS WHOLE, FEEDS SELF. SPEECH SOFT AND SLOW. ABD DISTENTION STILL NOTED. MAX ASST TO TRANSFER. CALL LIGHT IN REACH
--- NOTE | 2021-01-14 18:47 | NUR ---
BEDSIDE REPORT COMPLETED. RECEIVED PT SITTING UP IN BED. ALERT TO SELF. REORIENTED TO TIME, PLACE, SITUATION. FAMILY AT BEDSIDE. NO DISTRESS NOTED. DENIES ANY NEEDS OR PAIN. CALL LIGHT WITHIN REACH. BRUNILDA ALARM ON. CPOC
[2021-01-14 21:23] VITALS: BP 67/40
[2021-01-14 21:57] VITALS: BP 96/53
--- NOTE | 2021-01-14 23:27 | NUR ---
PT LYING IN BED ON RIGHT SIDE AWAKE. PT IS CONFUSED AND RESTLESS, CONSTANTLY FIDGETING WITH BLANKETS AND CALL CORD. TOILETING OFFERED PT DENIES NEED. REPOSITIONED PT TO TOP OF BED AND ON LEFT SIDE USING PILLOWS FOR SUPPORT. NO ACUTE DISTRESS NOTED. BRUNILDA ALARM ON. CALL LIGHT WITHIN REACH.
--- NOTE | 2021-01-15 03:44 | NUR ---
PT LYING IN BED ON RIGHT SIDE EYES CLOSED RESTING. RR EVEN AND UNLABORED. CALL LIGHT WITHIN REACH. BRUNILDA ALARM ON
--- NOTE | 2021-01-15 05:08 | NUR ---
PT LYING IN BED ON LEFT SIDE AWAKE. CHECKED PT FOR INCONTINENCY, NO INCONTINENCY NOTED. PT HAS NOT VOIDED THIS SHIFT. CHECKED BLADDER FOR DISTENTION, NO DISTENDED BLADDER NOTED. PT DENIES URGE TO VOID. WILL REPORT OFF TO ONCOMING NURSE TO MONITOR URINE OUTPUT. EARLY AM MEDS TAKEN WHOLE WITHOUT DIFFICULTY. CALL LIGHT AND NECTAR THICK WATER WITHIN REACH. BRUNILDA ALARM ON
[2021-01-15 09:02] VITALS: BP 88/47
--- NOTE | 2021-01-15 18:31 | NUR ---
REFUSED EVENING DOSE OF LACTULOSE
[2021-01-15 19:00] VITALS: BP 80/52
--- NOTE | 2021-01-15 22:39 | NUR ---
PT ASSESSED AND H.S. MEDS GIVEN. PT CALM AND COOPRATIVE BUT DISORIENTED AND DOES NOT ANSWER QUESTIONS WHEN ASKED. PT REPOSTIONED, CALL LIGHT WITHIN REACH, NO SIGNS OF DISTRESS NOTED. WILL CONT TO MONITOR.
--- NOTE | 2021-01-16 08:00 | NUR ---
REFUSED AM MEDS
[2021-01-16 08:16] LABS: CALC OSMOLALITY 264 mosm/kg (275-300); CALCIUM 8.8 mg/dL (8.5-10.1); CHLORIDE - SERUM 101 mmol/L (98-107); CREATININE - SERUM 0.9 mg/dL (0.6-1.3); GLUCOSE 82 mg/dL (74-106); POTASSIUM - SERUM 4.2 mmol/L (3.5-5.1); SODIUM 132 mmol/L (136-145); UREA NITROGEN 16 mg/dL (7-18); eGFR NON AFRICAN AMERICAN > 90 mL/min (90-120)
[2021-01-16 08:24] VITALS: BP 92/58
[2021-01-16] MEDS ORDERED: ALDACTONE25 MG PO (08:42)
[2021-01-16] MEDS ORDERED: XIFAXAN550 MG PO (08:42)
[2021-01-16 09:12] LABS: BASOPHILS 1.8 % (0-2); HEMATOCRIT 30.5 % (42.0-54.0); HEMOGLOBIN 10.9 g/dL (13.5-17.5); IMMATURE GRANULOCYTES 0.5 % (0-5); LYMPHOCYTE ABS# 1.13 10x3/uL (1.32-3.57); LYMPHOCYTES 28.4 % (15-50); MCH 33.4 pg (26.0-34.0); MCHC 35.7 g/dL (31.0-37.0); MCV 93.6 fL (80.0-100.0); MEAN PLATELET VOLUME 10.3 fL (7.4-10.4); MONOCYTES 17.6 % (2-11); NEUTROPHIL ABS# 1.74 10x3/uL (1.78-5.38); NEUTROPHILS 43.7 % (40-80); PLATELET COUNT 83 10x3/uL (130-400); RBC 3.26 10x6/uL (4.20-6.10); RDW 13.2 % (11.5-14.5)
--- NOTE | 2021-01-16 10:10 | NUR ---
PATIENT HAS BEEN ACCPETED TO [facility] AND WILL DISCHARGE THERE TODAY. FAMILY HAS BEEN NOTIFIED. APPOINTMENTS WITH PHYSICIANS WILL BE MADE AT TIME OF DISCHARGE FROM THE FACILITY.
--- NOTE | 2021-01-16 10:30 | NUR ---
ANNA SIGNED, IMM SERVED AND EXPLAINED, ONE GIVEN TO PATIENT AND ONE FILED IN CHART.TRANSPORTATION WILL BE HERE AT 2:30 TODAY.
--- NOTE | 2021-01-16 10:56 | NUR ---
CALLED REPORT TO JUSTIN MARIE AT [facility]
[2021-01-16 13:32] LABS: HYPOCHROMASIA OCC; PLATELET ESTIMATE DECREASED; ROULEAUX OCC
== END 2021-01-16 14:34 | DRG 91 ==
LOC: D.REHAB 18:10
PROVIDERS: ADMIT Emergency Medicine; ATTEND Emergency Medicine
DX: G72.1 Alcoholic myopathy (principal); E43 Unspecified severe protein-calorie malnutrition; D61.818 Other pancytopenia; R60.0 Localized edema; D64.9 Anemia, unspecified; Z68.22 Body mass index [BMI] 22.0-22.9, adult; R00.0 Tachycardia, unspecified; E80.6 Other disorders of bilirubin metabolism; K70.31 Alcoholic cirrhosis of liver with ascites

== ENCOUNTER → 2021-01-17 20:57 | Outpatient (CLI) | payer MEDICARE ==
[2021-01-01 08:00] VITALS: BMI 22.7
[~2021-01-17 20:57] MED LIST changes: +ALDACTONE25 MG PO
[2021-01-17 21:32] LABS: BASOPHILS 1.7 % (0-2); EOSINOPHILS 3.9 % (0-7); HEMATOCRIT 34.6 % (42.0-54.0); HEMOGLOBIN 11.8 g/dL (13.5-17.5); IMMATURE GRANULOCYTES 0.2 % (0-5); LYMPHOCYTE ABS# 1.14 10x3/uL (1.32-3.57); LYMPHOCYTES 27.9 % (15-50); MCH 33.3 pg (26.0-34.0); MCHC 34.1 g/dL (31.0-37.0); MONOCYTES 16.4 % (2-11); NEUTROPHIL ABS# 2.04 10x3/uL (1.78-5.38); NEUTROPHILS 49.9 % (40-80); PLATELET COUNT 79 10x3/uL (130-400); RBC 3.54 10x6/uL (4.20-6.10); RDW 13.7 % (11.5-14.5); WBC 4.1 10x3/uL (4.8-10.8)
[2021-01-17 21:34] LABS: MCV 97.7 fL (80.0-100.0)
[2021-01-17 21:45] LABS: ANION GAP 14.2 mmol/L (8-16); CARBON DIOXIDE 25.4 mmol/L (21.0-32.0); CREATININE - SERUM 1.1 mg/dL (0.6-1.3); POTASSIUM - SERUM 3.6 mmol/L (3.5-5.1)
[2021-01-17 22:14] LABS: PLATELET ESTIMATE DECREASED
== END | disposition home or self-care (01) ==
LOC: D.LABREF 20:57
PROVIDERS: ATTEND Family Medicine
DX: Z51.81 Encounter for therapeutic drug level monitoring (principal)

== ENCOUNTER → 2021-01-20 08:39 | Outpatient (CLI) | payer MEDICARE ==
[2021-01-01 08:00] VITALS: BMI 22.7
[2021-01-20 09:32] LABS: BILIRUBIN 2+ (NEGATIVE); KETONE NEGATIVE (NEGATIVE); NITRITE NEGATIVE (NEGATIVE); UROBILINOGEN 4 mg/dL (< 2)
[2021-01-20 09:40] LABS: ALBUMIN 2.3 g/dL (3.4-5.0); BILIRUBIN - DIRECT 2.46 mg/dL (0.00-0.30); BILIRUBIN - INDIRECT 2.55 mg/dL (0.00-1.00); BILIRUBIN - TOTAL 5.01 mg/dL (0.2-1.3); PROTEIN - SERUM 7.4 g/dL (6.4-8.2)
== END | disposition home or self-care (01) ==
LOC: D.LABREF 08:39
PROVIDERS: ATTEND Family Medicine
DX: Z51.81 Encounter for therapeutic drug level monitoring (principal)